=== PATIENT | female | born 1990 | race Caucasian/White ===

== ENCOUNTER 2017-08-16 15:46 | Inpatient (IN) | payer BC ==
[~2017-08-16] VITALS: Ht 166.4 cm; Wt 54.8 kg
[2017-08-16] VITALS (11 sets, daily range): BP systolic 86–100; BP diastolic 50–56; PULSE 110–129; RESP 16–44; TEMP 97.8–98.2; O2SAT 87–97
[~2017-08-16 15:46] MED LIST: SULF-154 PO; [UNRECOGNIZED DRUG - OTHER]
[2017-08-16] MEDS ORDERED: methylPREDNISolone SOD SUCC 125 MG/2 ML VIAL IV PUSH ONE (16:00)
[2017-08-16] MEDS ORDERED: SODIUM CHLORIDE 0.9% FLUSH 10 ML FLUSH IVF PRN (16:00)
[2017-08-16] MEDS: RESP: ALBUTEROL 2.5 MG/IPRATROPIUM 0.5 MG NEB (SCH) INH (16:08)
--- NOTE | 2017-08-16 16:10 | PD ---
HPI Chief Complaint: Respiratory Symptoms Time Seen by Provider: 15:55 Travel History International Travel<30 days: No Contact w/Intl Traveler<30days: No Traveled to known affect area: No History of Present Illness HPI Patient comes emerge department complaining of shortness of breath 2 days. Patient she was in the hospital 2 weeks ago diagnosed with pneumonia was placed on antibiotics azithromycin and prednisone last dose last week. Patient reports she was doing fine until 2 days ago she began feeling short of breath again. Patient was supposed to see her primary care doctor today, but decided come to the emergency department for further treatment evaluation. Patient reports temperature at home last night of 100.4. Denies taking anything for this. Patient denies anything making symptoms better or worse. Denies any chest pain, bowel pain, nausea, vomiting, or . Severity moderate. PFSH Past Medical History Asthma: No Autoimmune Disease: Yes (cd-4 immune deficiency) Blood Disorders: No Cardiovascular Problems: No Cystic Fibrosis: No Diminished Hearing: No Gastrointestinal Disorders: Yes Genitourinary: No Immune Disorder: Yes (CD4 IMMUNE DEFICIENCY) Musculoskeletal: No Neurologic: No Psychiatric: No Respiratory: Yes Immunizations Current: Yes Sickle Cell Disease: No ?: Not LMP: 07/27/17 Past Surgical History Surgical History: No Previous Surgery Appendectomy: No Cholecystectomy: No Other Surgery: Yes (LASER) Social History Alcohol Use: Yes (ONCE A WEEK) Tobacco Use: No Substance Use: No Allergies-Medications (Allergen,Severity, Reaction): Coded Allergies: penicillin G (Unverified Allergy, Unknown, 11/01/16) Reported Meds & Prescriptions Reported Meds & Active Scripts Active Reported [Logesttil (Bcp)] Septra Ds (Trimethoprim/Sulfamethoxazole) Tab 1 Tab PO 3TIMES A WEEK Review of Systems Except as stated in HPI: all other systems reviewed are Neg Physical Exam Narrative GENERAL: Well-developed, well nourished, in no acute distress, and non-ill appearing. SKIN: Focused skin assessment warm and dry. HEAD: Atraumatic. Normocephalic. EYES: Pupils equal and round. EOMI. No scleral icterus. No injection or drainage. ENT: No nasal bleeding or discharge. Mucous membranes pink and moist. NECK: Trachea midline. Supple. No nuclear rigidity. CARDIOVASCULAR: Regular rate and rhythm. No murmur appreciated. RESPIRATORY: No accessory muscle use. No respiratory distress. Breath sounds are tight and wheezing throughout. MUSCULOSKELETAL: No obvious deformities. No clubbing. No cyanosis. No edema. Full range of motion. NEUROLOGICAL: Awake and alert. No obvious cranial nerve deficits. Motor grossly within normal limits. Normal speech. PSYCHIATRIC: Appropriate mood and affect; insight and judgment normal. Data Data Last Documented VS Vital Signs Date Time Temp Pulse Resp B/P (MAP) Pulse Ox O2 Delivery O2 Flow Rate FiO2 08/16/17 19:23 120 20 91 Nasal Cannula 3.00 08/16/17 15:49 97.8 Orders Orders Complete Blood Count With Diff (08/16/17 16:00) Basic Metabolic Panel (Bmp) (08/16/17 16:00) Act Partial Throm Time (Ptt) (08/16/17 16:00) Prothrombin Time / Inr (Pt) (08/16/17 16:00) Magnesium (Mg) (08/16/17 16:00) Influenzae A/B Antigen (08/16/17 16:00) Iv Access Insert/Monitor (08/16/17 16:00) Electrocardiogram (08/16/17 16:00) Ecg Monitoring (08/16/17 16:00) Oximetry (08/16/17 16:00) Oxygen Administration (08/16/17 16:00) Chest, Single Ap (08/16/17 16:00) Sodium Chloride 0.9% Flush (Ns Flush) (08/16/17 16:00) Methylprednisolone So Succ Inj (Solumedr (08/16/17 16:00) Albuterol-Ipratropium Neb (Duoneb Neb) (08/16/17 16:00) Lactic Acid Sepsis Protocol (08/16/17 16:00) Urinalysis - C+S If Indicated (08/16/17 16:02) Blood Culture (08/16/17 16:02) Sodium Chlor 0.9% 1000 Ml Inj (Ns 1000 M (08/16/17 16:15) Sodium Chlor 0.9% 1000 Ml Inj (Ns 1000 M (08/16/17 16:45) Resp Mdi/Instruction (08/16/17 16:57) Albuterol-Ipratropium Neb (Duoneb Neb) (08/16/17 18:15) Albuterol-Ipratropium Neb (Duoneb Neb) (08/16/17 18:45) Admit Order (Ed Use Only) (08/16/17 19:40) Labs Laboratory Tests Test 08/16/17 16:05 08/16/17 17:16 White Blood Count 16.6 TH/MM3 Red Blood Count 4.85 MIL/MM3 Hemoglobin 14.1 GM/DL Hematocrit 40.4 % Mean Corpuscular Volume 83.2 FL Mean Corpuscular Hemoglobin 29.1 PG Mean Corpuscular Hemoglobin Concent 35.0 % Red Cell Distribution Width 15.0 % Platelet Count 349 TH/MM3 Mean Platelet Volume 7.9 FL Neutrophils (%) (Auto) 82.6 % Lymphocytes (%) (Auto) 5.5 % Monocytes (%) (Auto) 9.1 % Eosinophils (%) (Auto) 2.6 % Basophils (%) (Auto) 0.2 % Neutrophils # (Auto) 13.7 TH/MM3 Lymphocytes # (Auto) 0.9 TH/MM3 Monocytes # (Auto) 1.5 TH/MM3 Eosinophils # (Auto) 0.4 TH/MM3 Basophils # (Auto) 0.0 TH/MM3 CBC Comment DIFF FINAL Differential Comment Prothrombin Time 10.4 SEC Prothromb Time International Ratio 1.0 RATIO Activated Partial Thromboplast Time 29.9 SEC Blood Urea Nitrogen 10 MG/DL Creatinine 0.74 MG/DL Random Glucose 102 MG/DL Calcium Level 8.5 MG/DL Magnesium Level 2.2 MG/DL Sodium Level 136 MEQ/L Potassium Level 5.0 MEQ/L Chloride Level 103 MEQ/L Carbon Dioxide Level 24.3 MEQ/L Anion Gap 9 MEQ/L Estimat Glomerular Filtration Rate 96 ML/MIN Lactic Acid Level 1.3 mmol/L Urine Color YELLOW Urine Turbidity CLEAR Urine pH 7.0 Urine Specific [place] 1.018 Urine Protein TRACE mg/dL Urine Glucose (UA) NEG mg/dL Urine Ketones TRACE mg/dL Urine Occult Blood NEG Urine Nitrite NEG Urine Bilirubin NEG Urine Urobilinogen LESS THAN 2.0 MG/DL Urine Leukocyte Esterase TRACE Urine WBC 1 /hpf Urine Squamous Epithelial Cells 4 /hpf Urine Bacteria RARE /hpf Microscopic Urinalysis Comment CULT NOT INDICATED MDM Medical Decision Making Medical Screen Exam Complete: Yes Emergency Medical Condition: Yes Interpretation(s) EKG reviewed by Dr. Palmer shows sinus tachycardia with ventricular rate of 121. No STEMI. Differential Diagnosis Pneumonia, asthma exacerbation or reactive airway disease, URI, sepsis Narrative Course Patient was seen and examined. IV was established patient placed on continuous cardiac monitoring. Patient was given IV Solu-Medrol, IV fluid, and 3 duo nebs were ordered. 1700 upon reevaluation patient reports improvement of symptoms. Lungs reassessed improved breath sounds. Patient states she was only on steroids 1 day hospital after being admitted overnight. Patient reports was on a nebulizer but does not believe she was never officially diagnosed with asthma as a child and has not been on medication in a while. Secondary patient's O2 sats not going higher than 80% on room air. Patient was given additional 2 duo nebs however patient remained 88-90% on room air. Patient was placed back on O2. Discussed patient with Dr. Palmer, who recommends admission secondary to continued low O2 sats. Discussed all findings and plan of care with patient is agreeable for admission. All questions were answered. Patient remained stable throughout ED course. Discussed patient with hospitalist who is agreeable to admit the patient. Physician Communication Physician Communication [address] Xavier, who is agreeable to admit the patient. Diagnosis Primary Impression: Dyspnea Qualified Codes: R06.00 - Dyspnea, unspecified Admitting Information Admitting Physician Requests: Observation Condition: Stable Tam Bailon August 16, 2017 16:09
[2017-08-16] MEDS ORDERED: SODIUM CHLOR 0.9% 1000 ML INJ 1,000 ML IV ONE ×2 (16:15→16:45)
[2017-08-16 16:27] LABS: AUTOMATED NEUTROPHIL # 13.7 TH/MM3 (1.8-7.7); BASOPHIL % 0.2 % (0.0-2.0); EOSINOPHIL # 0.4 TH/MM3 (0-0.4); EOSINOPHIL % 2.6 % (0.0-4.0); HEMATOCRIT 40.4 % (35.0-46.0); HEMOGLOBIN 14.1 GM/DL (11.6-15.3); LYMPH % 5.5 % (9.0-44.0); LYMPHOCYTE # 0.9 TH/MM3 (1.0-4.8); MEAN CELL VOLUME 83.2 FL (80.0-100.0); MEAN CORPUSCULAR HEMOGLOBIN 29.1 PG (27.0-34.0); MEAN PLATELET VOLUME 7.9 FL (7.0-11.0); MONO % 9.1 % (0.0-8.0); MONOCYTE # 1.5 TH/MM3 (0-0.9); NEUT % 82.6 % (16.0-70.0); PLATELET COUNT 349 TH/MM3 (150-450); RED BLOOD COUNT 4.85 MIL/MM3 (4.00-5.30); WHITE BLOOD COUNT 16.6 TH/MM3 (4.0-11.0)
--- NOTE | 2017-08-16 16:28 | RADRPT ---
EXAM DATE: 08/16/2017 4:18 PM EDT AGE/SEX: 26 years / Female INDICATIONS: Short of breath CLINICAL DATA: This is the patient's initial encounter. Patient reports that signs and symptoms have been present for 3 days and indicates a pain score of 0/10. MEDICAL/SURGICAL HISTORY: . pneumonia 2 weeks ago. None. COMPARISON: No prior [facility] exams available for comparison. FINDINGS: Minimal interstitial changes in both lungs with minimal bibasilar changes. Cardiac silhouett e is appropriate. There is obvious consolidation, pleural effusion or pneumothorax. CONCLUSION: Minimal interstitial changes both lungs that could be an early inflammatory process. Electronically signed by: Glen Rodríguez MD 08/16/2017 4:27 PM EDT
[2017-08-16 16:50] LABS: PROTHROMBIN TIME - PATIENT 10.4 SEC (9.8-11.6)
[2017-08-16 16:55] LABS: BICARBONATE 24.3 MEQ/L (21.0-32.0); CALCIUM 8.5 MG/DL (8.5-10.1); CREATININE 0.74 MG/DL (0.50-1.00); MAGNESIUM 2.2 MG/DL (1.5-2.5)
[2017-08-16 17:42] LABS: BACTERIA, URINE RARE /hpf; BILIRUBIN, URINE NEG (NEG); BLOOD, URINE NEG (NEG); GLUCOSE,URINE NEG (NEG); KETONE, URINE TRACE mg/dL (NEG); NITRITE,URINE NEG (NEG); SQUAMOUS EPITHELIAL CELL URINE 4 /hpf (0-5); URINE COLOR YELLOW (YELLW/STRAW); URINE LEUKOCYTE ESTERASE TRACE (NEG)
[2017-08-16] MEDS ORDERED: RESP: ALBUTEROL 2.5 MG/IPRATROPIUM 0.5 MG NEB (SCH) INH ONE ×2 (18:15→18:45)
[2017-08-16] MEDS ORDERED: LAMI300T PO (20:24)
--- NOTE | 2017-08-16 21:55 | HHI.HP ---
[facility] Fátima Burton Admission Diagnosis Dyspnea Diagnoses: Travel History International Travel<30 Days: No Contact w/Intl Traveler <30 Da: No Traveled to Known Affected Are: No History of Present Illness 26-year-old female with a past medical history significant for common variable immune deficiency presents to the emergency department for the evaluation of shortness of breath. The patient was seen at [facility] 2 weeks ago where she was hospitalized for 2 nights and discharged with prednisone and azithromycin after being diagnosed with community-acquired pneumonia. The patient reports compliance with these medications and states she was feeling better until 3 days ago. At that time she began developing shortness of breath again. She states that her shortness of breath continued to worsen until today she felt as though she could not even walk 10 steps without having to stop to catch her breath. She denies any fever/chills. No cough. No history of asthma. No chest pain. No nausea/vomiting/diarrhea. No abdominal pain. Review of Systems Except as stated in HPI: all other systems reviewed are Neg Past Family Social History Past Medical History Common variable immune deficiency Nocturnal seizures Past Surgical History None Reported Medications Reported Meds & Active Scripts Active Reported Lamictal XR (Lamotrigine) 300 Mg Anne-Marie 300 Mg PO HS [Logesttil (Bcp)] Allergies: Coded Allergies: penicillin G (Unverified Allergy, Unknown, 11/01/16) Family History Negative for CAD/DM Social History Occasional alcohol. Denies tobacco and illicit drugs. Physical Exam Vital Signs Vital Signs Date Time Temp Pulse Resp B/P (MAP) Pulse Ox O2 Delivery O2 Flow Rate FiO2 08/16/17 20:25 112 18 92/51 (65) 96 Nasal Cannula 3.00 08/16/17 19:23 120 20 91 Nasal Cannula 3.00 08/16/17 19:01 125 22 100/51 (67) 88 Room Air 08/16/17 18:16 119 20 86/50 (62) 88 Room Air 08/16/17 18:10 88 Room Air 08/16/17 16:05 94 Nasal Cannula 4.00 08/16/17 16:03 95 Nasal Cannula 4.00 08/16/17 16:03 94 Nasal Cannula 4.00 08/16/17 16:01 89 Nasal Cannula 2.00 08/16/17 15:58 133 22 84 Room Air 08/16/17 15:49 97.8 129 44 91/51 (64) 87 Physical Exam GENERAL: female sitting up in bed SKIN: No rashes, ecchymoses or lesions. Cool and dry. HEAD: Atraumatic. Normocephalic. No temporal or scalp tenderness. EYES: Pupils equal round and reactive. Extraocular motions intact. No scleral icterus. No injection or drainage. ENT: Nose without bleeding, purulent drainage or septal hematoma. Throat without erythema, tonsillar hypertrophy or exudate. Uvula midline. Airway patent. NECK: Trachea midline. No JVD or lymphadenopathy. Supple, nontender, no meningeal signs. CARDIOVASCULAR: Regular rate and rhythm without murmurs, gallops, or rubs. RESPIRATORY: Bilateral wheezes. Decreased air movement. GASTROINTESTINAL: Abdomen soft, non-tender, nondistended. No hepato-splenomegaly , or palpable masses. No guarding. MUSCULOSKELETAL: Extremities without clubbing, cyanosis, or edema. No joint tenderness, effusion, or edema noted. No calf tenderness. NEUROLOGICAL: Awake and alert. Cranial nerves II through XII intact. Motor and sensory grossly within normal limits. Normal speech. Laboratory Laboratory Tests Test 08/16/17 16:05 08/16/17 17:16 White Blood Count 16.6 Red Blood Count 4.85 Hemoglobin 14.1 Hematocrit 40.4 Mean Corpuscular Volume 83.2 Mean Corpuscular Hemoglobin 29.1 Mean Corpuscular Hemoglobin Concent 35.0 Red Cell Distribution Width 15.0 Platelet Count 349 Mean Platelet Volume 7.9 Neutrophils (%) (Auto) 82.6 Lymphocytes (%) (Auto) 5.5 Monocytes (%) (Auto) 9.1 Eosinophils (%) (Auto) 2.6 Basophils (%) (Auto) 0.2 Neutrophils # (Auto) 13.7 Lymphocytes # (Auto) 0.9 Monocytes # (Auto) 1.5 Eosinophils # (Auto) 0.4 Basophils # (Auto) 0.0 CBC Comment DIFF FINAL Differential Comment Prothrombin Time 10.4 Prothromb Time International Ratio 1.0 Activated Partial Thromboplast Time 29.9 Blood Urea Nitrogen 10 Creatinine 0.74 Random Glucose 102 Calcium Level 8.5 Magnesium Level 2.2 Sodium Level 136 Potassium Level 5.0 Chloride Level 103 Carbon Dioxide Level 24.3 Anion Gap 9 Estimat Glomerular Filtration Rate 96 Lactic Acid Level 1.3 Urine Color YELLOW Urine Turbidity CLEAR Urine pH 7.0 Urine Specific [place] 1.018 Urine Protein TRACE Urine Glucose (UA) NEG Urine Ketones TRACE Urine Occult Blood NEG Urine Nitrite NEG Urine Bilirubin NEG Urine Urobilinogen LESS THAN 2.0 Urine Leukocyte Esterase TRACE Urine WBC 1 Urine Squamous Epithelial Cells 4 Urine Bacteria RARE Microscopic Urinalysis Comment CULT NOT INDICATED Date/Time Source Procedure Growth Status 08/16/17 16:05 Blood Peripheral Aerobic Blood Culture Pending Received 08/16/17 16:05 Blood Peripheral Anaerobic Blood Culture Pending Received 08/16/17 16:45 Nasal Aspirate Influenza Types A,B Antigen (WILLIAM) - Final NEGATIVE FOR FLU A AND B ANTIGEN.... Complete Result Diagram: 08/16/17 1605 08/16/17 1605 Caprini VTE Risk Assessment Caprini VTE Risk Assessment: No/Low Risk (score <= 1) Caprini Risk Assessment Model Point Value = 1 Point Value = 2 Point Value = 3 Point Value = 5 Age 41-60 Minor surgery BMI > 25 kg/m2 Swollen legs Varicose veins or History of unexplained or recurrent spontaneous Oral contraceptives or hormone replacement Sepsis (< 1 month) Serious lung disease, including pneumonia (< 1 month) Abnormal pulmonary function Acute myocardial infarction Congestive heart failure (< 1 month) History of inflammatory bowel disease Medical patient at bed rest Age 61-74 Arthroscopic surgery Major open surgery (> 45 min) Laparoscopic surgery (> 45 min) Malignancy Confined to bed (> 72 hours) Immobilizing plaster cast Central venous access Age >= 75 History of VTE Family history of VTE Factor V Leiden Prothrombin [id number] Lupus anticoagulant Anticardiolipin antibodies Elevated serum homocysteine Heparin-induced thrombocytopenia Other congenital or acquired thrombophilia Stroke (< 1 month) Elective arthroplasty Hip, pelvis, or leg fracture Acute spinal cord injury (< 1 month) Prophylaxis Regimen Total Risk Factor Score Risk Level Prophylaxis Regimen 0-1 Low Early ambulation 2 Moderate Order ONE of the following: *Sequential Compression Device (SCD) *Heparin 5000 units SQ BID 3-4 Higher Order ONE of the following medications: *Heparin 5000 units SQ TID *Enoxaparin/Lovenox 40 mg SQ daily (WT < 150 kg, CrCl > 30 mL/min) *Enoxaparin/Lovenox 30 mg SQ daily (WT < 150 kg, CrCl > 10-29 mL/min) *Enoxaparin/Lovenox 30 mg SQ BID (WT < 150 kg, CrCl > 30 mL/min) AND/OR *Sequential Compression Device (SCD) 5 or more Highest Order ONE of the following medications: *Heparin 5000 units SQ TID (Preferred with Epidurals) *Enoxaparin/Lovenox 40 mg SQ daily (WT < 150 kg, CrCl > 30 mL/min) *Enoxaparin/Lovenox 30 mg SQ daily (WT < 150 kg, CrCl > 10-29 mL/min) *Enoxaparin/Lovenox 30 mg SQ BID (WT < 150 kg, CrCl > 30 mL/min) AND *Sequential Compression Device (SCD) Assessment and Plan Assessment and Plan Assessment/plan: 1. Hypoxia Chest x-ray significant for minimal interstitial changes, personally reviewed Patient hypoxic on room air on arrival to the emergency department Continues to require oxygen despite breathing treatments and IV steroids Continue duo nebs Continue IV steroids Wean oxygen as tolerated If symptoms do not improve overnight, pulmonary consult may be warranted 2. CVID Patient followed at [facility] 3. Nocturnal seizures Continue home Lamictal FEN Regular diet Electrolytes: Monitor and replete as needed Physician Certification 2 Midnight Certification Type: Admission for Inpatient Services Order for Inpatient Services The services are ordered in accordance with Medicare regulations or non- Medicare payer requirements, as applicable. In the case of services not specified as inpatient-only, they are appropriately provided as inpatient services in accordance with the 2-midnight benchmark. Estimated LOS (days): 2 2 days is the estimated time the patient will need to remain in the hospital, assuming treatment plan goals are met and no additional complications. Post-Hospital Plan: Not yet determined Karla Xavier MD August 16, 2017 21:55
[2017-08-16] MEDS ORDERED: RESP: ALBUTEROL 2.5 MG/IPRATROPIUM 0.5 MG NEB (PRN) NEB (22:00)
[2017-08-16] MEDS ORDERED: LAMOTRIGINE 300 MG PO SCH (22:00)
[2017-08-16] MEDS ORDERED: SODIUM CHLORIDE 0.9% FLUSH 10 ML FLUSH IV FLUSH PRN (22:00)
[2017-08-16] MEDS ORDERED: PILL SPLITTER OTHER PRN (23:45)
[2017-08-17] VITALS (9 sets, daily range): BP systolic 86–97; BP diastolic 55–62; PULSE 92–106; RESP 16–22; TEMP 97.7–98.2; O2SAT 93–96
[2017-08-17] MEDS: lamoTRIgine 100 MG TAB PO SCH ×3 (00:14→21:18)
[2017-08-17] MEDS: RESP: ALBUTEROL 2.5 MG/IPRATROPIUM 0.5 MG NEB (SCH) NEB ×6 (00:18→19:52)
[2017-08-17] MEDS: methylPREDNISolone SOD SUCC 125 MG/2 ML VIAL IV PUSH SCH ×2 (04:52→11:43)
[2017-08-17 06:22] LABS: AUTOMATED NEUTROPHIL # 8.5 TH/MM3 (1.8-7.7); BASOPHIL % 0.1 % (0.0-2.0); HEMATOCRIT 36.9 % (35.0-46.0); HEMOGLOBIN 12.3 GM/DL (11.6-15.3); LYMPH % 6.4 % (9.0-44.0); LYMPHOCYTE # 0.6 TH/MM3 (1.0-4.8); MEAN CELL VOLUME 84.6 FL (80.0-100.0); MEAN CORPUSCULAR HEMOGLOBIN 28.2 PG (27.0-34.0); MEAN CORPUSCULAR HGB CONC 33.3 % (32.0-36.0); MEAN PLATELET VOLUME 7.8 FL (7.0-11.0); MONO % 7.6 % (0.0-8.0); MONOCYTE # 0.7 TH/MM3 (0-0.9); NEUT % 85.9 % (16.0-70.0); PLATELET COUNT 349 TH/MM3 (150-450); RED BLOOD COUNT 4.36 MIL/MM3 (4.00-5.30); RED CELL DISTRIBUTION WIDTH 15.2 % (11.6-17.2); WHITE BLOOD COUNT 9.9 TH/MM3 (4.0-11.0)
[2017-08-17 06:39] LABS: BICARBONATE 22.3 MEQ/L (21.0-32.0); CALCIUM 8.5 MG/DL (8.5-10.1); CREATININE 0.55 MG/DL (0.50-1.00)
[2017-08-17] MEDS: SODIUM CHLORIDE 0.9% FLUSH 10 ML FLUSH IV FLUSH SCH ×2 (08:30→21:18)
--- NOTE | 2017-08-17 12:32 | HHI.PR ---
Subjective Remarks Feels a little better, still short of breath and coughing. No fever overnight Objective Vitals Vital Signs Date Time Temp Pulse Resp B/P (MAP) Pulse Ox O2 Delivery O2 Flow Rate FiO2 08/17/17 08:58 94 Nasal Cannula 3.00 08/17/17 08:07 97.7 93 16 95/58 (70) 95 08/17/17 04:00 98.2 100 22 97/56 (70) 95 08/17/17 00:00 97.9 106 20 94/62 (73) 96 08/16/17 23:04 98.2 119 16 98/54 (69) 92 08/16/17 22:22 08/16/17 22:17 97 Nasal Cannula 2.00 08/16/17 22:00 110 18 98/56 (70) 95 Nasal Cannula 3.00 08/16/17 20:25 112 18 92/51 (65) 96 Nasal Cannula 3.00 08/16/17 19:23 120 20 91 Nasal Cannula 3.00 08/16/17 19:01 125 22 100/51 (67) 88 Room Air 08/16/17 18:16 119 20 86/50 (62) 88 Room Air 08/16/17 18:10 88 Room Air 08/16/17 16:05 94 Nasal Cannula 4.00 08/16/17 16:03 95 Nasal Cannula 4.00 08/16/17 16:03 94 Nasal Cannula 4.00 08/16/17 16:01 89 Nasal Cannula 2.00 08/16/17 15:58 133 22 84 Room Air 08/16/17 15:49 97.8 129 44 91/51 (64) 87 I/O 08/16/17 08/16/17 08/16/17 08/17/17 08/17/17 08/17/17 07:00 15:00 23:00 07:00 15:00 23:00 Intake Total 2000 ml Balance 2000 ml Intake IV Total 2000 ml Result Diagram: 08/17/17 0520 08/17/17 0520 Imaging Last Impressions Chest X-Ray 08/16/17 1600 Signed Impressions: CONCLUSION: Minimal interstitial changes both lungs that could be an early inflammatory pro cess. Objective Remarks GENERAL: female sitting up in bed SCARDIOVASCULAR: Regular rate and rhythm without murmurs, gallops, or rubs. RESPIRATORY: Bilateral rhonchi, occasional wheezing. GASTROINTESTINAL: Abdomen soft, non-tender, nondistended. No hepato-splenomegaly , or palpable masses. No guarding. MUSCULOSKELETAL: Extremities without clubbing, cyanosis, or edema. NEUROLOGICAL: Awake and alert. Cranial nerves II through XII intact. Motor and sensory grossly within normal limits. Normal speech. A/P Assessment and Plan 26-year-old female with a past medical history significant for common variable immune deficiency presents to the emergency department for the evaluation of shortness of breath. The patient was seen at [facility] 2 weeks ago where she was hospitalized for 2 nights and discharged with prednisone and azithromycin after being diagnosed with community-acquired pneumonia. Patient presented to the hospital with shortness of breath even with compliance with medications. Hypoxic respiratory failure secondary to pneumonia -chest x-ray shows minimal interstitial changes, hypoxic, continue oxygen, continue IV steroids, duo nebs around the clock and as needed, improving, hold of pulmonary consult. Restart antibiotics with Levaquin and azithromycin. CVID Patient followed at [facility] Nocturnal seizures Continue home Lamictal FEN Regular diet Electrolytes: Monitor and replete as needed DVT prophylaxis: Low risk Discharge Planning Discharge once off oxygen. Possibly tomorrow. Bertha Sands MD August 17, 2017 12:32
[2017-08-17] MEDS ORDERED: LEVOFLOXACIN 750 MG PREMIX INJ 150 ML IV SCH (14:00)
[2017-08-17] MEDS: AZITHROMYCIN 250 MG TAB PO SCH (14:43)
--- NOTE | 2017-08-17 14:47 | EKG ---
Date Performed: 08/16/2017 Time Performed: 16:14:34 PTAGE: 26 years EKG: SINUS TACHYCARDIA ABNORMAL RHYTHM ECG NO PREVIOUS TRACING DOCTOR: Arnol King Interpretating Date/Time 08/17/2017 14:44:56
[2017-08-17] MEDS: methylPREDNISolone SOD SUCC 40 MG/1 ML VIAL IV PUSH SCH (21:18)
[2017-08-18 00:12] VITALS: BP 91/56; PULSE 94; RESP 20; TEMP 98.3; O2SAT 97
[2017-08-18] MEDS: RESP: ALBUTEROL 2.5 MG/IPRATROPIUM 0.5 MG NEB (SCH) NEB ×4 (00:29→12:10)
[2017-08-18] MEDS: methylPREDNISolone SOD SUCC 40 MG/1 ML VIAL IV PUSH SCH (03:23)
[2017-08-18 04:00] VITALS: BP 90/55; PULSE 98; RESP 20; TEMP 97.7; O2SAT 96
[2017-08-18 08:17] VITALS: O2SAT 95
[2017-08-18 09:10] VITALS: BP 92/48; PULSE 93; RESP 20; TEMP 98.5; O2SAT 94
[2017-08-18] MEDS ORDERED: Albuterol-Ipratropium Neb NEB (10:40)
[2017-08-18] MEDS ORDERED: MEDR4PAK PO (10:40)
[2017-08-18] MEDS ORDERED: DIFL150T PO (10:40)
[2017-08-18] MEDS ORDERED: LEVO750T3 PO (10:40)
--- NOTE | 2017-08-18 10:49 | HHI.DS ---
Discharge Summary Admission Date August 16, 2017 at 21:48 Discharge Date: Aug 18, 2017 Admitting Diagnosis Dyspnea (1) Pneumonia, community acquired ICD Code: J18.9 - Pneumonia, unspecified organism (2) Immunodeficiency ICD Code: D84.9 - Immunodeficiency, unspecified (3) Dyspnea ICD Code: R06.00 - Dyspnea, unspecified Status: Acute Procedures none Brief History - From Admission 26-year-old female with a past medical history significant for common variable immune deficiency presents to the emergency department for the evaluation of shortness of breath. The patient was seen at [facility] 2 weeks ago where she was hospitalized for 2 nights and discharged with prednisone and azithromycin after being diagnosed with community-acquired pneumonia. The patient reports compliance with these medications and states she was feeling better until 3 days ago. At that time she began developing shortness of breath again. She states that her shortness of breath continued to worsen until today she felt as though she could not even walk 10 steps without having to stop to catch her breath. She denies any fever/chills. No cough. No history of asthma. No chest pain. No nausea/vomiting/diarrhea. No abdominal pain. CBC/BMP: 08/17/17 0520 08/17/17 0520 Significant Findings Laboratory Tests Test 08/16/17 16:05 08/16/17 17:16 08/17/17 05:20 White Blood Count 16.6 TH/MM3 (4.0-11.0) Neutrophils (%) (Auto) 82.6 % (16.0-70.0) 85.9 % (16.0-70.0) Lymphocytes (%) (Auto) 5.5 % (9.0-44.0) 6.4 % (9.0-44.0) Monocytes (%) (Auto) 9.1 % (0.0-8.0) Neutrophils # (Auto) 13.7 TH/MM3 (1.8-7.7) 8.5 TH/MM3 (1.8-7.7) Lymphocytes # (Auto) 0.9 TH/MM3 (1.0-4.8) 0.6 TH/MM3 (1.0-4.8) Monocytes # (Auto) 1.5 TH/MM3 (0-0.9) Urine Ketones TRACE mg/dL (NEG) Urine Leukocyte Esterase TRACE (NEG) Urine Bacteria RARE /hpf (NONE) Random Glucose 129 MG/DL (74-106) Chloride Level 108 MEQ/L (98-107) PE at Discharge GENERAL: female sitting up in bed SCARDIOVASCULAR: Regular rate and rhythm without murmurs, gallops, or rubs. RESPIRATORY: Bilateral rhonchi, occasional wheezing. GASTROINTESTINAL: Abdomen soft, non-tender, nondistended. No hepato-splenomegaly , or palpable masses. No guarding. MUSCULOSKELETAL: Extremities without clubbing, cyanosis, or edema. NEUROLOGICAL: Awake and alert. Cranial nerves II through XII intact. Motor and sensory grossly within normal limits. Normal speech. Hospital Course 26-year-old with a history of common variable immunodeficiency syndrome. She presented 3 days ago with shortness of breath following what appeared to be failure of azithromycin after being hospitalized for 2 days for treatment of pneumonia 2 weeks ago. Her chest x-ray appeared to be improved compared to the atypical pneumonia presentation. She was placed on a combination of IV Solu- Medrol and antibiotics were expanded to include Levaquin 750 mg IV. She has improved over the last 3 days and is currently off of oxygen. She reports she is ambulating comfortably and is interested in going home. She is afebrile for more than 24 hours, oxygen levels are 94% on room air, breathing is good without regular need for duo nebs. From a medical standpoint she appears stable for discharge today and will be following up with her primary care doctor in the early part of next week. Pt Condition on Discharge: Good Discharge Disposition: Discharge Home Discharge Time: <= 30 minutes Discharge Instructions DIET: Follow Instructions for: As Tolerated, No Restrictions Activities you can perform: Regular-No Restrictions Favian Jimenez MD Aug 18, 2017 10:48
[2017-08-18] MEDS: lamoTRIgine 100 MG TAB PO SCH (11:37)
[2017-08-18] MEDS: AZITHROMYCIN 250 MG TAB PO SCH (11:37)
[2017-08-18 11:50] VITALS: BP 94/46; PULSE 95; RESP 20; TEMP 97.9; O2SAT 94
[2017-08-18] MEDS ORDERED: NEBULIZER1 MI1 (15:32)
== END 2017-08-18 13:03 | disposition home or self-care (01) | DRG 193 ==
LOC: NEPE 15:46 → NEDA 19:41 → OBSVTOIN 21:48 → N04B 22:21
PROVIDERS: ADMIT Family Medicine; ATTEND Family Medicine
DX: J18.9 Pneumonia, unspecified organism (principal); J96.91 Respiratory failure, unspecified with hypoxia; D83.9 Common variable immunodeficiency, unspecified; R56.9 Unspecified convulsions
CPT/HCPCS: 71045; 80048; 81001; 83605; 83735; 85025; 85610; 85730; 87040; 87804; 93005; 94640; 94664; 94799; J1956; J2920; J2930; J7030

== ENCOUNTER 2017-08-29 17:52 | Inpatient (IN) | payer BC ==
[~2017-08-29] VITALS: Ht 165.1 cm; Wt 58.3 kg
[~2017-08-29 17:52] MED LIST changes: +Albuterol-Ipratropium Neb NEB; +DIFL150T PO; +LAMI300T PO; +LEVO750T3 PO; +MEDR4PAK PO; +NEBULIZER1 MI1; -SULF-154 PO
[2017-08-29 18:07] VITALS: BP 111/64; PULSE 120; RESP 20; TEMP 98.4; O2SAT 88
[2017-08-29] MEDS ORDERED: SODIUM CHLORIDE 0.9% FLUSH 10 ML FLUSH IVF PRN (18:45)
--- NOTE | 2017-08-29 19:10 | PD ---
HPI Chief Complaint: Respiratory Symptoms Time Seen by Provider: 18:34 Travel History International Travel<30 days: No Contact w/Intl Traveler<30days: No Traveled to known affect area: No History of Present Illness HPI Patient 26-year-old female with a history of immunodeficiency presents emergency department for evaluation of shortness of breath and tachycardia. Patient has been admitted to this hospital twice in an outside facility once in the past 30 days. All these admissions were for hypoxia in the mid to high 80s. Patient followed up with her new hardscape foreman for an establishment appointment today and was told that she needed to come back to the emergency department to rule out pulmonary embolism. She states that her shortness of breath has been progressive for the past month and a half, she did have the flight to [place] during the early onset of her shortness of breath, no fevers no cough no congestion no nausea no vomiting. Symptoms are moderate. PFSH Past Medical History Asthma: No Autoimmune Disease: Yes (cd-4 immune deficiency) Blood Disorders: No Cancer: No Cardiovascular Problems: No Cystic Fibrosis: No Diminished Hearing: No Endocrine: No Gastrointestinal Disorders: Yes Genitourinary: No Immune Disorder: Yes (CD4 IMMUNE DEFICIENCY) Musculoskeletal: No Neurologic: Yes Psychiatric: No Reproductive: No Respiratory: Yes (ASTHMA) Immunizations Current: Yes Seizures: Yes Sickle Cell Disease: No ?: Not LMP: August Past Surgical History Appendectomy: No Cholecystectomy: No Other Surgery: Yes (LASER) Social History Alcohol Use: Yes (ONCE A WEEK) Tobacco Use: No Substance Use: No Allergies-Medications (Allergen,Severity, Reaction): Coded Allergies: penicillin G (Unverified Allergy, Unknown, 11/01/16) Reported Meds & Prescriptions Reported Meds & Active Scripts Active Nebulizer 1 Mis Mis Ea .XX DIRECTED PRN Medrol Dosepak (Methylprednisolone) 4 Mg Dspk 4 Mg PO DIRECTED Per Pharmacist direction Levofloxacin 750 Mg Tablet 750 Mg PO DAILY 10 Days Diflucan (Fluconazole) 150 Mg Tab 150 Mg PO ONCE PRN [Albuterol-Ipratropium Neb] 1 AMPULE Nebu 1 Ampule NEB Q4HR NEB PRN 10 Days Reported Lamictal XR (Lamotrigine) 300 Mg Anne-Marie 300 Mg PO HS [Logesttil (Bcp)] Review of Systems Except as stated in HPI: all other systems reviewed are Neg Physical Exam Narrative GENERAL: Well-developed thin in no obvious distress SKIN: Scattered flat pinpoint markings on her upper and lower extremities and face. Patient states his been chronic for her. HEAD: Atraumatic. Normocephalic. EYES: Pupils equal and round. No scleral icterus. No injection or drainage. ENT: No nasal bleeding or discharge. Mucous membranes pink and moist. NECK: Trachea midline. No JVD. CARDIOVASCULAR: Regular rhythm with tachycardia. No murmur appreciated. RESPIRATORY: No accessory muscle use. Clear to auscultation. Breath sounds equal bilaterally. Patient with mild tachypnea but is able to speak in long sentences. Gasps inbetween the sentences. No retractions, appears fairly comfortable with a respiratory effort GASTROINTESTINAL: Abdomen soft, non-tender, nondistended. Hepatic and splenic margins not palpable. MUSCULOSKELETAL: No obvious deformities. No clubbing. No cyanosis. No edema. NEUROLOGICAL: Awake and alert. No obvious cranial nerve deficits. Motor grossly within normal limits. Normal speech. PSYCHIATRIC: Appropriate mood and affect; insight and judgment normal. Data Data Last Documented VS Vital Signs Date Time Temp Pulse Resp B/P (MAP) Pulse Ox O2 Delivery O2 Flow Rate FiO2 08/29/17 20:28 96 Nasal Cannula 3.00 08/29/17 18:07 98.4 120 20 111/64 (80) Orders Orders Electrocardiogram (08/29/17 18:34) Complete Blood Count With Diff (08/29/17 18:34) Comprehensive Metabolic Panel (08/29/17 18:34) Magnesium (Mg) (08/29/17 18:34) Prothrombin Time / Inr (Pt) (08/29/17 18:34) Act Partial Throm Time (Ptt) (08/29/17 18:34) Chest, Single Ap (08/29/17 18:34) Ecg Monitoring (08/29/17 18:34) Iv Access Insert/Monitor (08/29/17 18:34) Oximetry (08/29/17 18:34) Oxygen Administration (08/29/17 18:34) Sodium Chloride 0.9% Flush (Ns Flush) (08/29/17 18:45) Ed Urine Pregnancytest Poc (08/29/17 18:34) Ct Pulmonary Angiogram (08/29/17 ) Iohexol 350 Inj (Omnipaque 350 Inj) (08/29/17 22:07) Vancomycin Inj (Vancomycin Inj) (08/29/17 23:15) Aztreonam Inj (Azactam Inj) (08/29/17 23:15) Blood Culture (08/29/17 23:09) Admit Order (Ed Use Only) (08/29/17 ) Labs Laboratory Tests Test 08/29/17 19:00 White Blood Count 8.5 TH/MM3 Red Blood Count 5.26 MIL/MM3 Hemoglobin 14.5 GM/DL Hematocrit 43.8 % Mean Corpuscular Volume 83.3 FL Mean Corpuscular Hemoglobin 27.5 PG Mean Corpuscular Hemoglobin Concent 33.1 % Red Cell Distribution Width 15.0 % Platelet Count 413 TH/MM3 Mean Platelet Volume 7.3 FL Neutrophils (%) (Auto) 71.5 % Lymphocytes (%) (Auto) 10.7 % Monocytes (%) (Auto) 11.8 % Eosinophils (%) (Auto) 5.6 % Basophils (%) (Auto) 0.4 % Neutrophils # (Auto) 6.1 TH/MM3 Lymphocytes # (Auto) 0.9 TH/MM3 Monocytes # (Auto) 1.0 TH/MM3 Eosinophils # (Auto) 0.5 TH/MM3 Basophils # (Auto) 0.0 TH/MM3 CBC Comment DIFF FINAL Differential Comment Prothrombin Time 10.7 SEC Prothromb Time International Ratio 1.1 RATIO Activated Partial Thromboplast Time 28.0 SEC Blood Urea Nitrogen 5 MG/DL Creatinine 0.82 MG/DL Random Glucose 74 MG/DL Total Protein 7.3 GM/DL Albumin 3.7 GM/DL Calcium Level 9.1 MG/DL Magnesium Level 2.4 MG/DL Alkaline Phosphatase 86 U/L Aspartate Amino Transf (AST/SGOT) 24 U/L Alanine Aminotransferase (ALT/SGPT) 15 U/L Total Bilirubin 0.3 MG/DL Sodium Level 139 MEQ/L Potassium Level 4.0 MEQ/L Chloride Level 104 MEQ/L Carbon Dioxide Level 25.6 MEQ/L Anion Gap 9 MEQ/L Estimat Glomerular Filtration Rate 85 ML/MIN MDM Medical Decision Making Medical Screen Exam Complete: Yes Emergency Medical Condition: Yes Differential Diagnosis Pneumonia, PE, sepsis, chronic lung disease, asthma. Narrative Course Patient room to the emergency department, has history of common variable immune deficiency, certainly she is tachycardic and has low saturation, CAT scan does not show evidence of pulmonary embolism however does show inflammatory response in the lungs which could be consistent with pneumocystis according to the radiologist: Last 24 hours Impressions Chest X-Ray 08/29/17 1834 Signed Impressions: CONCLUSION: Stable chest. CT Angiography 08/29/17 0000 Signed Impressions: CONCLUSION: 1. Abnormal lung parenchyma suspicious for an early inflammatory process. Pneu mocystis could give this appearance in the appropriate clinical context. Atypic al presentation for asthma. Certainly the patient does have hypoxic respiratory failure and will require admission to the hospital. Diagnosis Primary Impression: Pneumonia, community acquired Qualified Codes: J18.9 - Pneumonia, unspecified organism Additional Impressions: Immunodeficiency Acute respiratory failure with hypoxia Admitting Information Admitting Physician Requests: Admit Condition: Stable Jeffrey Gonzalez MD Aug 29, 2017 19:10
[2017-08-29 19:22] LABS: AUTOMATED NEUTROPHIL # 6.1 TH/MM3 (1.8-7.7); BASOPHIL % 0.4 % (0.0-2.0); EOSINOPHIL # 0.5 TH/MM3 (0-0.4); EOSINOPHIL % 5.6 % (0.0-4.0); HEMATOCRIT 43.8 % (35.0-46.0); HEMOGLOBIN 14.5 GM/DL (11.6-15.3); LYMPH % 10.7 % (9.0-44.0); LYMPHOCYTE # 0.9 TH/MM3 (1.0-4.8); MEAN CELL VOLUME 83.3 FL (80.0-100.0); MEAN CORPUSCULAR HEMOGLOBIN 27.5 PG (27.0-34.0); MEAN CORPUSCULAR HGB CONC 33.1 % (32.0-36.0); MEAN PLATELET VOLUME 7.3 FL (7.0-11.0); MONO % 11.8 % (0.0-8.0); NEUT % 71.5 % (16.0-70.0); PLATELET COUNT 413 TH/MM3 (150-450); RED BLOOD COUNT 5.26 MIL/MM3 (4.00-5.30); WHITE BLOOD COUNT 8.5 TH/MM3 (4.0-11.0)
[2017-08-29 19:28] LABS: INTERNATIONAL NORMALIZED RATIO 1.1 RATIO; PROTHROMBIN TIME - PATIENT 10.7 SEC (9.8-11.6)
--- NOTE | 2017-08-29 19:31 | RADRPT ---
EXAM DATE: 08/29/2017 7:29 PM EDT AGE/SEX: 26 years / Female INDICATIONS: Shortness of breath. CLINICAL DATA: This is the patient's initial encounter. Patient reports that signs and symptoms have been present for 1 day and indicates a pain score of 0/10. MEDICAL/SURGICAL HISTORY: . Pneumonia None. [place] [facility] [place] . FINDINGS: Minimal blunting left cost phrenic sulcus stable interval. Right lung clear. The heart and pulmonary vascularity are normal. The portion of the bony skeleton visualized is unremarkable. CONCLUSION: Stable chest. Electronically signed by: Glen Rodríguez MD 08/29/2017 7:30 PM EDT
[2017-08-29 19:36] LABS: ALBUMIN 3.7 GM/DL (3.4-5.0); ALT (GPT) 15 U/L (10-53); AST (GOT) 24 U/L (15-37); BICARBONATE 25.6 MEQ/L (21.0-32.0); BLOOD UREA NITROGEN 5 MG/DL (7-18); CALCIUM 9.1 MG/DL (8.5-10.1); CHLORIDE 104 MEQ/L (98-107); CREATININE 0.82 MG/DL (0.50-1.00); GLOMERULAR FILTRATION RATE 85 ML/MIN (>89); GLUCOSE,RANDOM 74 MG/DL (74-106); MAGNESIUM 2.4 MG/DL (1.5-2.5); SODIUM (NA) 139 MEQ/L (136-145)
[2017-08-29 19:39] LABS: ALKALINE PHOSPHATASE 86 U/L (45-117); TOTAL BILIRUBIN ADULT 0.3 MG/DL (0.2-1.0); TOTAL PROTEIN 7.3 GM/DL (6.4-8.2)
[2017-08-29] MEDS ORDERED: IOHEXOL 350 MG/ML 10 ML VIAL (for RAD DIAG) IVCONTRAST ONE (22:07)
--- NOTE | 2017-08-29 22:17 | RADRPT ---
EXAM DATE: 08/29/2017 10:08 PM EDT AGE/SEX: 26 years / Female INDICATIONS: Shortness of breath. CLINICAL DATA: This is the patient's initial encounter. Patient reports that signs and symptoms have been present for 2 weeks and indicates a pain score of 0/10. MEDICAL/SURGICAL HISTORY: Asthma. Seizures. None. RADIATION DOSE: 5.29 CTDI (mGy) COMPARISON: No prior exams available for comparison. TECHNIQUE: Volumetric scanning was performed using a multi-row detector CT scanner during bolus infu kimmy of 70 ml Omnipaque 350 (iohexol) nonionic water-soluble contrast as a single exam dose. The leonides a was post processed with a variety of visualization algorithms including full volume maximum intensi ty projection and sliding thin slab reformation. Using automated exposure control and adjustment of the mA and/or kV according to patient size, radiation dose was kept as low as reasonably achievable t o obtain optimal diagnostic quality images. FINDINGS: Pulmonary Arteries: No filling defects are seen in the pulmonary arteries out to the subsegmental ve ssels. The left and right pulmonary arteries are normal in diameter. Lung: Mild interstitial prominence with groundglass opacity in both lungs that could be an early inf lammatory process. This is associated with moderate peribronchial thickening. Effusion: None. Mediastinum: No evidence of mediastinal or hilar adenopathy. Other: The axilla is unremarkable. CONCLUSION: 1. Abnormal lung parenchyma suspicious for an early inflammatory process. Pneumocystis could give th is appearance in the appropriate clinical context. Atypical presentation for asthma. Electronically signed by: Glen Rodríguez MD 08/29/2017 10:15 PM EDT
[2017-08-29] MEDS ORDERED: AZTREONAM INJ 1,000 MG in SODIUM CHLORIDE 0.9% INJ 100 ML IV ONE (23:15)
[2017-08-29] MEDS ORDERED: VANCOMYCIN INJ 1,000 MG in SODIUM CHLOR 0.9% 250 ML INJ 250 ML IV ONE (23:15)
[2017-08-29 23:40] VITALS: BP 96/52; PULSE 90; RESP 15; O2SAT 95
[2017-08-30] MEDS ORDERED: MAGNESIUM HYDROXIDE SUSP 30 ML CUP PO PRN (01:00)
[2017-08-30] MEDS ORDERED: BISACODYL 10 MG SUPP RECTAL PRN (01:00)
[2017-08-30] MEDS ORDERED: RESP: ALBUTEROL 2.5 MG/IPRATROPIUM 0.5 MG NEB (PRN) NEB (01:00)
[2017-08-30] MEDS ORDERED: SENNOSIDES 8.6 MG TAB PO PRN (01:00)
[2017-08-30] MEDS ORDERED: Vancomycin Consult Pharmacy 1 EA OTHER SCH (01:00)
[2017-08-30] MEDS ORDERED: ONDANSETRON ODT 4 MG TAB PO PRN (01:00)
[2017-08-30] MEDS ORDERED: SODIUM CHLORIDE 0.9% FLUSH 10 ML FLUSH IV FLUSH PRN (01:00)
[2017-08-30] MEDS ORDERED: ACETAMINOPHEN 325 MG TAB PO PRN (01:00)
[2017-08-30] MEDS ORDERED: NALOXONE HCL 0.4 MG/ML AMP IV PUSH PRN (01:00)
[2017-08-30] MEDS ORDERED: LACTULOSE SYRUP 20 GM/30 ML CUP PO PRN (01:00)
[2017-08-30] MEDS ORDERED: diphenhydrAMINE HCL 50 MG/ML VIAL IV PUSH ONE (01:30)
--- NOTE | 2017-08-30 03:24 | HHI.HP ---
[facility] Morgan Pinon MD Admission Diagnosis pneumonia, hypoxic respiratory failure Diagnoses: Travel History International Travel<30 Days: No Contact w/Intl Traveler <30 Da: No Traveled to Known Affected Are: No History of Present Illness 26-year-old female with past medical history significant for common variable immune deficiency presents the emergency department for evaluation of persistent shortness of breath. The [place] [facility] [place]. She followed up as an outpatient with her dairy feed mixing operator, Dr. Cuevas, who referred her to the emergency department for evaluation of possible PE. Patient has already completed a course of azithromycin and Levaquin. She continues to complain of shortness of breath that is worse with exertion. She denies any recent wheezing or cough. No fever /chills. No chest pain. No abdominal pain. No nausea/vomiting/diarrhea. Review of Systems Except as stated in HPI: all other systems reviewed are Neg Past Family Social History Past Medical History Common variable immune deficiency Nocturnal seizures Past Surgical History None Reported Medications Reported Meds & Active Scripts Active Nebulizer 1 Mis Mis Ea .XX DIRECTED PRN Medrol Dosepak (Methylprednisolone) 4 Mg Dspk 4 Mg PO DIRECTED Per Pharmacist direction Levofloxacin 750 Mg Tablet 750 Mg PO DAILY 10 Days Diflucan (Fluconazole) 150 Mg Tab 150 Mg PO ONCE PRN [Albuterol-Ipratropium Neb] 1 AMPULE Nebu 1 Ampule NEB Q4HR NEB PRN 10 Days Reported Lamictal XR (Lamotrigine) 300 Mg Anne-Marie 300 Mg PO HS [Logesttil (Bcp)] Allergies: Coded Allergies: penicillin G (Unverified Allergy, Unknown, 11/01/16) Family History Negative for CAD/DM Social History Occasional alcohol. Denies tobacco and illicit drugs. Physical Exam Vital Signs Vital Signs Date Time Temp Pulse Resp B/P (MAP) Pulse Ox O2 Delivery O2 Flow Rate FiO2 08/30/17 01:54 08/29/17 23:40 90 15 96/52 (67) 95 Nasal Cannula 3.00 08/29/17 20:28 96 Nasal Cannula 3.00 08/29/17 20:28 Nasal Cannula 3.00 18 18:07 98.4 120 20 111/64 (80) 88 Physical Exam GENERAL: female sitting up in bed SKIN: No rashes, ecchymoses or lesions. Cool and dry. HEAD: Atraumatic. Normocephalic. No temporal or scalp tenderness. EYES: Pupils equal round and reactive. Extraocular motions intact. No scleral icterus. No injection or drainage. ENT: Nose without bleeding, purulent drainage or septal hematoma. Throat without erythema, tonsillar hypertrophy or exudate. Uvula midline. Airway patent. NECK: Trachea midline. No JVD or lymphadenopathy. Supple, nontender, no meningeal signs. CARDIOVASCULAR: Regular rate and rhythm without murmurs, gallops, or rubs. RESPIRATORY: Clear to auscultation. Breath sounds equal bilaterally. No wheezes , rales, or rhonchi. GASTROINTESTINAL: Abdomen soft, non-tender, nondistended. No hepato-splenomegaly , or palpable masses. No guarding. MUSCULOSKELETAL: Extremities without clubbing, cyanosis, or edema. No joint tenderness, effusion, or edema noted. No calf tenderness. NEUROLOGICAL: Awake and alert. Cranial nerves II through XII intact. Motor and sensory grossly within normal limits. Normal speech. Laboratory Laboratory Tests Test 08/29/17 19:00 White Blood Count 8.5 Red Blood Count 5.26 Hemoglobin 14.5 Hematocrit 43.8 Mean Corpuscular Volume 83.3 Mean Corpuscular Hemoglobin 27.5 Mean Corpuscular Hemoglobin Concent 33.1 Red Cell Distribution Width 15.0 Platelet Count 413 Mean Platelet Volume 7.3 Neutrophils (%) (Auto) 71.5 Lymphocytes (%) (Auto) 10.7 Monocytes (%) (Auto) 11.8 Eosinophils (%) (Auto) 5.6 Basophils (%) (Auto) 0.4 Neutrophils # (Auto) 6.1 Lymphocytes # (Auto) 0.9 Monocytes # (Auto) 1.0 Eosinophils # (Auto) 0.5 Basophils # (Auto) 0.0 CBC Comment DIFF FINAL Differential Comment Prothrombin Time 10.7 Prothromb Time International Ratio 1.1 Activated Partial Thromboplast Time 28.0 Blood Urea Nitrogen 5 Creatinine 0.82 Random Glucose 74 Total Protein 7.3 Albumin 3.7 Calcium Level 9.1 Magnesium Level 2.4 Alkaline Phosphatase 86 Aspartate Amino Transf (AST/SGOT) 24 Alanine Aminotransferase (ALT/SGPT) 15 Total Bilirubin 0.3 Sodium Level 139 Potassium Level 4.0 Chloride Level 104 Carbon Dioxide Level 25.6 Anion Gap 9 Estimat Glomerular Filtration Rate 85 Date/Time Source Procedure Growth Status 08/29/17 23:40 Blood Peripheral Aerobic Blood Culture Pending Received 08/29/17 23:40 Blood Peripheral Anaerobic Blood Culture Pending Received Result Diagram: 08/29/17189908/29/171899 Caprini VTE Risk Assessment Caprini VTE Risk Assessment: No/Low Risk (score <= 1) Caprini Risk Assessment Model Point Value = 1 Point Value = 2 Point Value = 3 Point Value = 5 Age 41-60 Minor surgery BMI > 25 kg/m2 Swollen legs Varicose veins or History of unexplained or recurrent spontaneous Oral contraceptives or hormone replacement Sepsis (< 1 month) Serious lung disease, including pneumonia (< 1 month) Abnormal pulmonary function Acute myocardial infarction Congestive heart failure (< 1 month) History of inflammatory bowel disease Medical patient at bed rest Age 61-74 Arthroscopic surgery Major open surgery (> 45 min) Laparoscopic surgery (> 45 min) Malignancy Confined to bed (> 72 hours) Immobilizing plaster cast Central venous access Age >= 75 History of VTE Family history of VTE Factor V Leiden Prothrombin [id number] Lupus anticoagulant Anticardiolipin antibodies Elevated serum homocysteine Heparin-induced thrombocytopenia Other congenital or acquired thrombophilia Stroke (< 1 month) Elective arthroplasty Hip, pelvis, or leg fracture Acute spinal cord injury (< 1 month) Prophylaxis Regimen Total Risk Factor Score Risk Level Prophylaxis Regimen 0-1 Low Early ambulation 2 Moderate Order ONE of the following: *Sequential Compression Device (SCD) *Heparin 5000 units SQ BID 3-4 Higher Order ONE of the following medications: *Heparin 5000 units SQ TID *Enoxaparin/Lovenox 40 mg SQ daily (WT < 150 kg, CrCl > 30 mL/min) *Enoxaparin/Lovenox 30 mg SQ daily (WT < 150 kg, CrCl > 10-29 mL/min) *Enoxaparin/Lovenox 30 mg SQ BID (WT < 150 kg, CrCl > 30 mL/min) AND/OR *Sequential Compression Device (SCD) 5 or more Highest Order ONE of the following medications: *Heparin 5000 units SQ TID (Preferred with Epidurals) *Enoxaparin/Lovenox 40 mg SQ daily (WT < 150 kg, CrCl > 30 mL/min) *Enoxaparin/Lovenox 30 mg SQ daily (WT < 150 kg, CrCl > 10-29 mL/min) *Enoxaparin/Lovenox 30 mg SQ BID (WT < 150 kg, CrCl > 30 mL/min) AND *Sequential Compression Device (SCD) Assessment and Plan Assessment and Plan Assessment/plan: 1. Shortness of breath CTA significant for abnormal lung parenchyma suspicious for an early inflammatory process. Pneumocystis cannot be excluded. Vancomycin/Zosyn for possible hospital-acquired pneumonia Infectious disease consulted for evaluation of possible pneumocystis Patient's dairy feed mixing operator, Dr. Cuevas consulted, appreciate recommendations Supplemental oxygen as needed DuoNeb's 2. CVID Patient followed at [facility] 3. Nocturnal seizures Continue home Lamictal FEN Regular diet Electrolytes: Monitor and replete as needed Physician Certification 2 Midnight Certification Type: Admission for Inpatient Services Order for Inpatient Services The services are ordered in accordance with Medicare regulations or non- Medicare payer requirements, as applicable. In the case of services not specified as inpatient-only, they are appropriately provided as inpatient services in accordance with the 2-midnight benchmark. Estimated LOS (days): 2 2 days is the estimated time the patient will need to remain in the hospital, assuming treatment plan goals are met and no additional complications. Post-Hospital Plan: Not yet determined Karla Xavier MD Aug 30, 2017 03:24
[2017-08-30 03:56] VITALS: BP 91/53; PULSE 94; RESP 17; TEMP 98.7; O2SAT 95
[2017-08-30] MEDS: AZTREONAM INJ 1,000 MG in SODIUM CHLORIDE 0.9% INJ 100 ML IV SCH ×2 (06:36→15:51)
[2017-08-30 08:16] VITALS: BP 82/45; PULSE 88; RESP 16; TEMP 98.6; O2SAT 94
--- NOTE | 2017-08-30 09:11 | EKG ---
Date Performed: 08/29/2017 Time Performed: 18:51:27 PTAGE: 26 years EKG: SINUS TACHYCARDIA POSSIBLE LEFT ATRIAL ENLARGEMENT ABNORMAL RHYTHM ECG INTERPRETATION BASED ON A DEFAULT AGE OF 40 YEARS NO PREVIOUS TRACING DOCTOR: Kirit Greene Interpretating Date/Time 08/30/2017 09:10:17
[2017-08-30] MEDS: DOCUSATE SODIUM 50 MG/SENNA 8.6 MG TAB PO SCH ×2 (10:09→20:31)
[2017-08-30] MEDS: SODIUM CHLORIDE 0.9% FLUSH 10 ML FLUSH IV FLUSH SCH ×2 (10:09→20:31)
[2017-08-30] MEDS: AZITHROMYCIN INJ 500 MG in SODIUM CHLOR 0.9% 250 ML INJ 250 ML IV SCH (10:09)
[2017-08-30] MEDS ORDERED: VANCOMYCIN INJ 1,000 MG in SODIUM CHLOR 0.9% 250 ML INJ 250 ML IV SCH (11:15)
[2017-08-30 14:06] VITALS: BP 133/62; PULSE 73; RESP 18; TEMP 98.7; O2SAT 96
[2017-08-30 14:39] VITALS: BP 89/54; PULSE 88; RESP 18; TEMP 98.7; O2SAT 95
[2017-08-30] MEDS: VANCOMYCIN INJ 750 MG in SODIUM CHLOR 0.9% 250 ML INJ 250 ML IV SCH (15:52)
[2017-08-30 17:21] VITALS: BP 84/52; PULSE 89; RESP 18; TEMP 98.7; O2SAT 96
--- NOTE | 2017-08-30 19:25 | PD.ID.CON ---
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 She coni not improved and [facility]She is afebrile, but reports never jhaving fever Her CTA showed atypical infiultrates SHe is hypoxic, requires O2 Bloodm clx negative @ 1 day Review of Systems Respiratory: COMPLAINS OF: Cough, Shortness of breath Cardiovascular: COMPLAINS OF: Dyspnea on Exertion Integumentary: COMPLAINS OF: Rash (chronic) Except as stated in HPI: all other systems reviewed are Neg Past Family Social History Allergies: Coded Allergies: penicillin G (Unverified Allergy, Unknown, 11/01/16) Past Medical History Common variable immune deficiency Nocturnal seizures chronic dermititis Past Surgical History none Active Ordered Medications Medications where reviewed in EMR Antibiotics Include: vanco azactam Family History non contributory reviewed Social History No Tobacco. No ETOH. No Illicit Drugs. Physical Exam Vital Signs Vital Signs Date Time Temp Pulse Resp B/P (MAP) Pulse Ox O2 Delivery O2 Flow Rate FiO2 08/30/17 17:21 98.7 89 18 84/52 (63) 96 08/30/17 14:39 98.7 88 18 89/54 (66) 95 08/30/17 14:06 98.7 73 18 133/62 (85) 96 08/30/17 08:16 98.6 88 16 82/45 (57) 94 08/30/17 03:56 98.7 94 17 91/53 (66) 95 08/30/17 01:54 08/29/17 23:40 90 15 96/52 (67) 95 Nasal Cannula 3.00 08/29/17 20:28 96 Nasal Cannula 3.00 08/29/17 20:28 Nasal Cannula 3.00 Physical Exam CONSTITUTIONAL/GENERAL: This is an adequately nourished patient, in no apparent distress. TUBES/LINES/DRAINS: SKIN: No jaundice, rashes, Some erytmatous flat lesions on face, UE Skin temperature appropriate. Not diaphoretic. HEAD: Atraumatic. Normocephalic. EYES: Pupils equal and round and reactive. Extraocular motions intact. No scleral icterus. No injection or drainage. Fundi not examined. ENT: Hearing grossly normal. Nose without bleeding or purulent drainage. Throat without visible erythema, exudates, masses, or lesions. NECK: Trachea midline. Supple, nontender. No palpable thyroid enlargement or nodularity. CARDIOVASCULAR: Regular rate and rhythm without murmurs, gallops, or rubs. No JVD. Peripheral pulses symmetric. RESPIRATORY/CHEST: Symmetric, unlabored respirations. R side rhonchi to auscultation. Breath sounds equal bilaterally. No wheezes, rales, or rhonchi. GASTROINTESTINAL: Abdomen soft, non-tender, nondistended. No hepato-splenomegaly , or palpable masses. No guarding. Bowel sounds present. GENITOURINARY: Without palpable bladder distension. MUSCULOSKELETAL: Extremities without clubbing, cyanosis, or edema. No joint tenderness or effusion noted. No calf tenderness. No mottling or clubbing. LYMPHATICS: No palpable cervical or supraclavicular adenopathy. NEUROLOGICAL: Awake and alert. Motor and sensory grossly within normal limits. Follows commands. Cognitively sharp. Moves all extremities. PSYCHIATRIC: No obvious anxiety/depression. no apparent hallucinations or other psychotic thought process. Laboratory Date/Time Source Procedure Growth Status 08/29/17 23:40 Blood Peripheral Aerobic Blood Culture - Preliminary NO GROWTH IN 1 DAY Resulted 08/29/17 23:40 Blood Peripheral Anaerobic Blood Culture - Preliminary NO GROWTH IN 1 DAY Resulted Result Diagram: 08/29/17 1900 08/29/17 1900 Imaging Last Impressions Chest X-Ray 08/29/17 1834 Signed Impressions: CONCLUSION: Stable chest. CT Angiography 08/29/17 0000 Signed Impressions: CONCLUSION: 1. Abnormal lung parenchyma suspicious for an early inflammatory process. Pneu mocystis could give this appearance in the appropriate clinical context. Atypic al presentation for asthma. Assessment and Plan Assessment and Plan Immunosuppresed, Common varibel immunoodeficiency PNA, subacute - failed abx Hypoxia Rec's: cont vancomycin start CFTX dc azzcatm add azitjhromycin Pneumocoocal/Leg AGn Flu antigen sputum clx PCP sputum Armen brnchospopy if no prompt improvement and unable to expectorate Dana King MD Aug 30, 2017 19:25
[2017-08-30 19:44] VITALS: BP 95/55; PULSE 95; RESP 17; TEMP 98.3; O2SAT 93
[2017-08-30] MEDS ORDERED: DEXT 5%-NACL 0.45% 1000 ML INJ 1,000 ML IV SCH (20:22)
[2017-08-30] MEDS ORDERED: ALBUTEROL SULFATE 90 MCG/ACT HFA 8 GM INHALER INH PRN (20:30)
[2017-08-30] MEDS: cefTRIAXone INJ 2,000 MG in SODIUM CHLORIDE 0.9% INJ 100 ML IV SCH (20:31)
--- NOTE | 2017-08-30 20:48 | MB ---
cc: Sue Cuevas MD, V J MD DATE: 08/30/2017 REASON FOR CONSULTATION: Pulmonary infiltrates and hypoxia. HISTORY OF PRESENT ILLNESS: This is a 26-year-old lady who has had a previous history of common variable immune deficiency disorder who was admitted through the emergency room with persistent shortness of breath, cough, wheezing and hypoxia. The patient was quite short of breath. She was admitted to the hospital 2 weeks ago with similar symptoms and was treated for possible pneumonia; however, she did not improve in spite of being on Levaquin and Zithromax and now has chest tightness and some coughing spells. She denied hemoptysis, nausea or vomiting. Upon arrival in the ER, a CTA showed no evidence of PE, but had diffuse ground glass infiltrates consistent with an inflammatory process or atypical pneumonia. The patient has not lost any weight. She denies nausea or vomiting and she denies any chest pains. PAST MEDICAL HISTORY: 1. Common variable immune deficiency. 2. History of nocturnal seizures. SOCIAL HISTORY: The patient does not smoke. She drinks alcohol occasionally. She is a student. There is no history of occupational exposure to any asbestos chemicals. The patient does not take any illicit drugs. ALLERGIES: PENICILLIN MEDICATIONS: Lamictal 300 mg at bedtime. FAMILY HISTORY: Noncontributory. There is no history of her asthma or chronic lung disease. SYSTEMS REVIEW: The patient has lost some weight. She has skin rash consistent with eczema. She has wheezing. She has postnasal drip. She has shortness of breath and orthopnea. She has no enlarged glands. She denies leg swelling. Denies nausea or vomiting. Denies urinary symptoms or flank pains. She has some anxiety attacks. PHYSICAL EXAMINATION: GENERAL: This is a thinly built young white female who is pale and seems mildly tachypneic. VITAL SIGNS: Blood pressure 110/60, pulse 105, respirations 24, temperature 98.5. HEENT: Head is normocephalic. Pupils are reactive. Sclerae were clear. Throat was mildly injected. Nasal mucosa edematous. There is some reddish raised rash on the forehead and some rash over the neck as well as both arms and trunk. There is no lymphadenopathy observed. CHEST: Reveals equal movements. There are scattered expiratory wheezes bilaterally. HEART: The heart sounds are regular, S1 and S2. No murmur. ABDOMEN: Soft, scaphoid. No mass. No organomegaly or tenderness. EXTREMITIES: No lesions, no edema. NEUROLOGIC: Reflexes are 1+ with no gross motor deficits. Cranial nerves grossly intact. IMPRESSION: 1. Bilateral pulmonary infiltrates, etiology undetermined, possible atypical pneumonia, rule out Pneumocystis. 2. Common variable immune deficiency disorder. 3. History of seizures. PLAN: The patient has been advised that a bronchoscopy will be scheduled to evaluate the infiltrates and a diagnostic lavage will be done and biopsy if possible. The patient will be maintained on current antibiotics including Rocephin 1 gram, vancomycin 750 mg and Zithromax 500 mg intravenous daily. Albuterol and Atrovent solution q.i.d. p.r.n. and a bedside pulmonary function study was ordered as well as coagulation profile today. I have discussed with her the risks of bronchoscopy including bleeding, pneumothorax, respiratory failure, etc., and she is in agreement. Thank you for this consultation. Sue Cuevas MD VSHAUNNA/ , 08:23 PM , 08:46 PM
[2017-08-30] MEDS ORDERED: LAMOTRIGINE 300 MG PO SCH (21:00)
[2017-08-30 23:50] LABS: BACTERIA, URINE RARE /hpf; BILIRUBIN, URINE NEG (NEG); BLOOD, URINE NEG (NEG); GLUCOSE,URINE NEG (NEG); KETONE, URINE NEG (NEG); MUCUS URINE FEW /lpf (OCC); NITRITE,URINE NEG (NEG); SQUAMOUS EPITHELIAL CELL URINE 6 /hpf (0-5); URINE COLOR YELLOW (YELLW/STRAW); URINE LEUKOCYTE ESTERASE NEG (NEG)
[2017-08-31 00:14] VITALS: BP 83/53; PULSE 104; RESP 16; TEMP 98.6; O2SAT 95
[2017-08-31] MEDS: VANCOMYCIN INJ 750 MG in SODIUM CHLOR 0.9% 250 ML INJ 250 ML IV SCH ×2 (04:37→17:08)
[2017-08-31 04:39] VITALS: BP 85/53; PULSE 86; RESP 15; TEMP 98.2; O2SAT 95
[2017-08-31 07:30] VITALS: BP 90/53; PULSE 92; RESP 16; TEMP 98.2; O2SAT 94
[2017-08-31 07:46] LABS: AUTOMATED NEUTROPHIL # 3.9 TH/MM3 (1.8-7.7); BASOPHIL % 0.6 % (0.0-2.0); EOSINOPHIL # 0.6 TH/MM3 (0-0.4); EOSINOPHIL % 9.7 % (0.0-4.0); HEMATOCRIT 39.2 % (35.0-46.0); HEMOGLOBIN 12.9 GM/DL (11.6-15.3); LYMPH % 14.5 % (9.0-44.0); LYMPHOCYTE # 0.9 TH/MM3 (1.0-4.8); MEAN CELL VOLUME 84.2 FL (80.0-100.0); MEAN CORPUSCULAR HEMOGLOBIN 27.7 PG (27.0-34.0); MEAN CORPUSCULAR HGB CONC 32.8 % (32.0-36.0); MEAN PLATELET VOLUME 7.5 FL (7.0-11.0); MONO % 14.5 % (0.0-8.0); MONOCYTE # 0.9 TH/MM3 (0-0.9); NEUT % 60.7 % (16.0-70.0); PLATELET COUNT 390 TH/MM3 (150-450); RED BLOOD COUNT 4.65 MIL/MM3 (4.00-5.30); RED CELL DISTRIBUTION WIDTH 14.7 % (11.6-17.2); WHITE BLOOD COUNT 6.4 TH/MM3 (4.0-11.0)
--- NOTE | 2017-08-31 07:52 | MB ---
cc: Janel Glaser MD DATE: 08/30/2017 CHIEF COMPLAINT: 1. Common variable immunodeficiency. 2. Pneumonia. HISTORY OF PRESENT ILLNESS: Ms. Bateman is a 26-year-old lady with a history of common variable immunodeficiency who presented to the emergency department with a several day history of progressively worsening shortness of breath. She was previously hospitalized at [facility] on 08/16/2017 for similar symptoms. She follows closely in the outpatient setting with her manager banquet, Dr. Cuevas. She has previously been diagnosed with pneumonia and has completed a course of azithromycin and Levaquin. She also has a history of common variable immunodeficiency. She currently follows with a pediatric physician at the [facility]. She is in the process of transitioning to an adult physician at [facility]. She reports that she is treated with twice monthly infusions of IVIG. She reports that her last infusion was approximately 1 month ago during her last hospitalization. She reports that she is in her baseline state of health aside from known pneumonia. While inpatient, infectious disease and pulmonary teams have been consulted. REVIEW OF SYSTEMS: As above in the HPI. All other review of systems negative. PAST MEDICAL HISTORY: 1. Common variable immunodeficiency. 2. Nocturnal seizures. PAST SURGICAL HISTORY: None. OUTPATIENT MEDICATIONS: 1. Seizure medication. 2. IVIG infusions. FAMILY HISTORY: No family history of common variable immunodeficiency. SOCIAL HISTORY: Denies tobacco, alcohol, and illegal drug use. 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 PHYSICAL EXAMINATION: GENERAL: Well-developed, well-nourished, young lady in no distress. HEAD: Normocephalic, atraumatic. SKIN: With no rashes. EYES: PERRLA. EOMI. NECK: Supple. No palpable lymphadenopathy. CARDIOVASCULAR: Regular rate and rhythm. No murmurs. RESPIRATORY: Clear to auscultation bilaterally. ABDOMEN: Soft, nontender, nondistended. Bowel sounds present. EXTREMITIES: With no edema. NEUROLOGIC: Grossly nonfocal. PSYCHIATRIC: Appropriate mood and affect. LABORATORY STUDIES: White blood cell count 8.5, hemoglobin 14.5, platelet count of 113,000. Differential with slightly low absolute lymphocyte count and elevated absolute monocyte count and absolute eosinophil count. These have been normal in the past. Chemistries with normal liver function tests. Creatinine is 0.82. Coag studies are within normal limits. Urines are negative. CT angiography with abnormal lung parenchyma suspicious for an early inflammatory process. ASSESSMENT AND PLAN: 1. Common variable immunodeficiency. We will check immunoglobulin levels. We will plan to give the next infusion of IVIG while inpatient. 2. Pneumonia infectious disease and pulmonary team are following. Infectious disease team is considering bronchoscopy. Janel Glaser MD FAM/DL , 07:28 AM , 07:51 AM MTDFátima
[2017-08-31 08:25] LABS: BICARBONATE 23.1 MEQ/L (21.0-32.0); CREATININE 0.6 MG/DL (0.50-1.00)
--- NOTE | 2017-08-31 09:27 | HHI.PR ---
Subjective Remarks Patient says she is feeling about the same. No improvement or worsening in shortness of breath. Denies any chest pain. Denies any nausea or vomiting. Objective Vital Signs Date Time Temp Pulse Resp B/P (MAP) Pulse Ox O2 Delivery O2 Flow Rate FiO2 08/31/17 07:30 98.2 92 16 90/53 (65) 94 08/31/17 04:39 98.2 86 15 85/53 (64) 95 08/31/17 00:14 98.6 104 16 83/53 (63) 95 08/30/17 19:44 98.3 95 17 95/55 (68) 93 08/30/17 19:28 Nasal Cannula 2.00 08/30/17 17:21 98.7 89 18 84/52 (63) 96 08/30/17 14:39 98.7 88 18 89/54 (66) 95 08/30/17 14:06 98.7 73 18 133/62 (85) 96 I/O 08/30/17 08/30/17 08/30/17 08/31/17 08/31/17 08/31/17 07:00 15:00 23:00 07:00 15:00 23:00 Intake Total 350 ml 950 ml 950 ml 720 ml Balance 350 ml 950 ml 950 ml 720 ml Intake Oral 250 ml 500 ml 720 ml IV Total 350 ml 700 ml 450 ml # Voids 2 Result Diagram: 08/31/17 0600 08/31/17 0600 Objective Remarks GENERAL: Patient sitting up in bed. Appears comfortable. SKIN: Warm and dry. HEAD: Normocephalic. EYES: No scleral icterus. No injection or drainage. NECK: Supple, trachea midline. No JVD or lymphadenopathy. CARDIOVASCULAR: Regular rate and rhythm without murmurs, gallops, or rubs. RESPIRATORY: Breath sounds equal bilaterally. No accessory muscle use. GASTROINTESTINAL: Abdomen soft, non-tender, nondistended. MUSCULOSKELETAL: No cyanosis, or edema. BACK: Nontender without obvious deformity. No CVA tenderness. A/P Assessment and Plan //Shortness of breath //Sepsis in immunocompromised patient on admission. Tachycardia, tachypnea. May not see leukocytosis or fever secondary to CVID. //Atypical pneumonia CTA significant for abnormal lung parenchyma suspicious for an early inflammatory process. Pneumocystis cannot be excluded. Vancomycin/Zosyn for possible hospital-acquired pneumonia Infectious disease consulted for evaluation of possible pneumocystis Patient's product safety professional, Dr. Cuevas consulted, appreciate recommendations Supplemental oxygen as needed DuoNeb's = Continue antibiotics as per ID. Appreciate assistance. //CVID Patient followed at [facility] = Appreciate hematology assistance. IVIG to be administered as per hematology. //Nocturnal seizures Continue home Lamictal FEN Regular diet Electrolytes: Monitor and replete as needed Discharge Planning We will need hematology and ID clearance. Satnam De La Fuente MD Aug 31, 2017 09:27
[2017-08-31] MEDS: SODIUM CHLORIDE 0.9% FLUSH 10 ML FLUSH IV FLUSH SCH ×2 (09:30→21:50)
[2017-08-31] MEDS: DOCUSATE SODIUM 50 MG/SENNA 8.6 MG TAB PO SCH ×2 (09:30→21:00)
[2017-08-31] MEDS ORDERED: PNEUMOCOCCAL POLYVALENT INJ 25 MCG/0.5 ML SYR IM ONE (10:00)
[2017-08-31] MEDS: AZITHROMYCIN INJ 500 MG in SODIUM CHLOR 0.9% 250 ML INJ 250 ML IV SCH (10:12)
[2017-08-31 10:30] VITALS: BP 84/52; PULSE 89; RESP 20; TEMP 98.4; O2SAT 93
[2017-08-31] MEDS ORDERED: FAMOTIDINE 20 MG/2 ML VIAL ONE (10:58)
[2017-08-31] MEDS ORDERED: SUGAMMADEX SODIUM 200 MG/2 ML VIAL IV PUSH ONE (10:58)
[2017-08-31] MEDS ORDERED: MIDAZOLAM HCL 2 MG/2 ML VIAL ONE (10:58)
[2017-08-31] MEDS ORDERED: RESP: ALBUTEROL 2.5 MG/3 ML NEB (PRN) NEB (11:30)
[2017-08-31] MEDS ORDERED: DO NOT ADM ANY ANTICOAGULANT DRUGS PRN (11:45)
--- NOTE | 2017-08-31 11:58 | MP ---
cc: Sue Cuevas MD DATE OF OPERATION: 08/31/2017 PROCEDURE PERFORMED: Fiberoptic bronchoscopy with brushings and washings and lavage. PREOPERATIVE DIAGNOSIS: Bilateral pulmonary infiltrates. POSTOPERATIVE DIAGNOSIS: Bilateral pulmonary infiltrates. SURGEON: Sue Cuevas MD ANESTHESIA: General with intubation. PROCEDURE AND FINDINGS: The patient was intubated under general anesthesia, following which the Olympus IT180 bronchoscope was used to visualize the bronchi. The scope was advanced via the endotracheal tube into the trachea. The trachea and bobby appeared normal. Scope was then advanced into the right mainstem and right upper lobe segmental bronchi. These bronchi demonstrated mucoid secretions and moderate endobronchitis. The secretions were suctioned out. No endobronchial lesions were seen. Saline washings were done until clear. The scope was then advanced into the right middle and right lower lobe segmental bronchi. These bronchi demonstrated moderate endobronchitis with thick mucoid secretions and mucus plugs. These were suctioned out. Saline washings and lavage were done from the right lower lobe. There were no endobronchial lesions seen. Brushings were done for micro and cytology from the right lower lobe region. The scope was then withdrawn. Next, the scope was advanced into the left mainstem and left upper lobe segmental bronchi. These bronchi demonstrated thick mucoid secretions with moderate endobronchitis but no endobronchial lesions were seen. Saline washings were done until clear. Next, the scope was advanced into the left lower lobe segmental bronchi, which demonstrated mucoid secretions and moderate endobronchitis. The secretions were suctioned out. Saline washings and lavage were done and the procedure was then terminated. The patient tolerated the procedure well. Sue Cuevas MD VJD/KD , 11:37 AM , 11:56 AM
[2017-08-31] MEDS: methylPREDNISolone SOD SUCC 40 MG/1 ML VIAL IV SCH ×2 (12:11→21:51)
--- NOTE | 2017-08-31 12:55 | RADRPT ---
EXAM DATE: 08/31/2017 12:30 PM EDT AGE/SEX: 26 years / Female INDICATIONS: Short of breath, evaluate for pneumothorax post bronchoscopy CLINICAL DATA: This is the patient's subsequent encounter. Patient reports that signs and symptoms h ave been present for 2 days and indicates a pain score of 0/10. MEDICAL/SURGICAL HISTORY: . pneumonia seizures None. [place] [facility] [place]29[place]. . FINDINGS: The cardiac and mediastinal contours are within normal limits. There are bilateral effusions and bila teral infiltrates concerning for a pneumonia. The patient is post bronchoscopy. No pneumothorax is se en. CONCLUSION: No pneumothorax identified following bronchoscopy. Patchy areas of infiltrate and bilateral effusions. Electronically signed by: Isaac Rodríguez MD 08/31/2017 12:54 PM EDT
[2017-08-31 15:46] VITALS: BP 82/44; PULSE 93; RESP 16; TEMP 98.2; O2SAT 94
[2017-08-31 19:00] VITALS: BP 88/50; PULSE 92; RESP 16; TEMP 97.3; O2SAT 95
[2017-08-31] MEDS: cefTRIAXone INJ 2,000 MG in SODIUM CHLORIDE 0.9% INJ 100 ML IV SCH (21:51)
[2017-09-01] VITALS (12 sets, daily range): BP systolic 85–98; BP diastolic 42–57; PULSE 67–105; RESP 16–22; TEMP 97.6–98.7; O2SAT 92–98
[2017-09-01] MEDS: methylPREDNISolone SOD SUCC 40 MG/1 ML VIAL IV SCH ×3 (04:53→20:55)
[2017-09-01] MEDS: VANCOMYCIN INJ 750 MG in SODIUM CHLOR 0.9% 250 ML INJ 250 ML IV SCH (04:55)
--- NOTE | 2017-09-01 08:24 | HHI.PR ---
Subjective Remarks Follow-up sepsis and pneumonia. States she is feeling better less short of breath on nasal cannula. Objective Vitals Vital Signs Date Time Temp Pulse Resp B/P (MAP) Pulse Ox O2 Delivery O2 Flow Rate FiO2 09/01/17 04:00 97.7 68 16 92/53 (66) 96 09/01/17 00:00 97.7 105 16 91/54 (66) 92 08/31/17 19:00 97.3 92 16 88/50 (63) 95 08/31/17 15:46 98.2 93 16 82/44 (57) 94 08/31/17 13:15 98 16 98/50 (66) 94 Nasal Cannula 3 08/31/17 13:00 98.5 97 16 102/51 (68) 94 Nasal Cannula 3 08/31/17 12:45 97 16 97/56 (70) 93 Nasal Cannula 3 08/31/17 12:30 96 15 94/51 (65) 93 Nasal Cannula 3 08/31/17 12:15 100 15 104/58 (73) 92 Nasal Cannula 3 08/31/17 12:00 99 15 95/53 (67) 92 Nasal Cannula 3 08/31/17 11:45 97.3 101 14 92/50 (64) 100 Simple Mask 8 08/31/17 10:30 98.4 89 20 84/52 (63) 93 I/O 08/31/17 08/31/17 08/31/17 09/01/17 09/01/17 09/01/17 07:00 15:00 23:00 07:00 15:00 23:00 Intake Total 720 ml 120 ml 360 ml Balance 720 ml 120 ml 360 ml Intake Oral 720 ml 120 ml 360 ml # Voids 2 3 # Bowel Movements 0 Result Diagram: 08/31/17 0600 08/31/17 0600 Imaging Last Impressions Chest X-Ray 08/31/17 0000 Signed Impressions: CONCLUSION: No pneumothorax identified following bronchoscopy. Patchy areas of infiltrate and bilateral effusions. CT Angiography 08/29/17 0000 Signed Impressions: CONCLUSION: 1. Abnormal lung parenchyma suspicious for an early inflammatory process. Pneu mocystis could give this appearance in the appropriate clinical context. Atypic al presentation for asthma. Objective Remarks GENERAL: Patient sitting up in bed. Appears comfortable. SKIN: Warm and dry. CARDIOVASCULAR: Regular rate and rhythm without murmurs, gallops, or rubs. RESPIRATORY: Breath sounds equal bilaterally. No accessory muscle use. GASTROINTESTINAL: Abdomen soft, non-tender, nondistended. MUSCULOSKELETAL: No cyanosis, or edema. BACK: Nontender without obvious deformity. No CVA tenderness. Procedures Bronchoscopy A/P Problem List: (1) Pneumonia, community acquired ICD Code: J18.9 - Pneumonia, unspecified organism Assessment and Plan Shortness of breath Sepsis in immunocompromised patient on admission. Tachycardia, tachypnea. May not see leukocytosis or fever secondary to CVID. Atypical pneumonia CTA significant for abnormal lung parenchyma suspicious for an early inflammatory process. Pneumocystis cannot be excluded. Ct Vancomycin/Rocephin/Zithromax Infectious disease consulted for evaluation of possible pneumocystis Patient's day care provider, Dr. Cuevas consulted, appreciate recommendations status post bronchoscopy Supplemental oxygen as needed DuoNeb's Continue antibiotics as per ID. Appreciate assistance. Follow-up cultures negative to date except gram-positive cocci in 1 out of 4 blood culture bottles CVID(Common variable immune deficiency disorder) Patient followed at [facility] Appreciate hematology assistance. IVIG to be administered as per hematology. Patient to be transferred to see IC Nocturnal seizures Continue home Lamictal Seizure precautions FEN Regular diet Electrolytes: Monitor and replete as needed DVT prophylaxis with SCD Discharge Planning We will need hematology and ID clearance. Problem Qualifiers (1) Pneumonia, community acquired: Qualified Codes: J18.9 - Pneumonia, unspecified organism Ashu Reyes MD Sep 01, 2017 08:24
[2017-09-01] MEDS: DOCUSATE SODIUM 50 MG/SENNA 8.6 MG TAB PO SCH ×2 (09:00→20:55)
[2017-09-01] MEDS: AZITHROMYCIN INJ 500 MG in SODIUM CHLOR 0.9% 250 ML INJ 250 ML IV SCH (09:24)
[2017-09-01] MEDS: SODIUM CHLORIDE 0.9% FLUSH 10 ML FLUSH IV FLUSH SCH ×2 (09:25→20:55)
[2017-09-01] MEDS ORDERED: diphenhydrAMINE HCL 50 MG/ML VIAL IV PUSH PRN (11:00)
[2017-09-01] MEDS ORDERED: EPINEPHrine HCL (1:1000) 1 MG/ML VIAL OTHER PRN (11:00)
[2017-09-01] MEDS: DEXTROSE 5% IN WATE 500 ML INJ 500 ML OTHER SCH (11:00)
--- NOTE | 2017-09-01 12:41 | PD.ONC.PN ---
Subjective Subjective Remarks Patient sitting up in bed, talking to her nurse. In no acute distress. She states that her breathing has improved since admission to the hospital. She reports that she was out of bed this a.m. and walking around without dyspnea. Objective Data Date Time Temp Pulse Resp B/P (MAP) Pulse Ox O2 Delivery O2 Flow Rate FiO2 09/01/17 08:00 98.1 71 17 92/49 (63) 95 09/01/17 04:00 97.7 68 16 92/53 (66) 96 09/01/17 00:00 97.7 105 16 91/54 (66) 92 08/31/17 19:00 97.3 92 16 88/50 (63) 95 08/31/17 15:46 98.2 93 16 82/44 (57) 94 08/31/17 13:15 98 16 98/50 (66) 94 Nasal Cannula 3 08/31/17 13:00 98.5 97 16 102/51 (68) 94 Nasal Cannula 3 08/31/17 12:45 97 16 97/56 (70) 93 Nasal Cannula 3 08/31/17 12:30 96 15 94/51 (65) 93 Nasal Cannula 3 09/01/17 09/01/17 09/01/17 07:00 15:00 23:00 Intake Total 360 ml Balance 360 ml Result Diagram: 08/31/17 0600 08/31/17 0600 Culture Results Microbiology Date/Time Source Procedure Growth Status 08/29/17 23:40 Blood Peripheral Aerobic Blood Culture - Preliminary Staph Sp Coagulase Negative Resulted 08/29/17 23:40 Blood Peripheral Anaerobic Blood Culture - Preliminary NO GROWTH IN 3 DAYS Resulted 08/29/17 23:30 Blood Peripheral Aerobic Blood Culture - Preliminary NO GROWTH IN 3 DAYS Resulted 08/29/17 23:30 Blood Peripheral Anaerobic Blood Culture - Preliminary NO GROWTH IN 3 DAYS Resulted 08/31/17 11:20 Bronchial Washings Bronchial Fungal Smear - Final NO FUNGAL ELEMENTS SEEN. Resulted 08/31/17 11:20 Bronchial Washings Bronchial Fungal Culture Pending Resulted 08/31/17 11:20 Bronchial Brushings Right Lower Lobe Fungal Smear - Final NO FUNGAL ELEMENTS SEEN. Resulted 08/31/17 11:20 Bronchial Brushings Right Lower Lobe Fungal Culture Pending Resulted 08/31/17 11:20 Bronchial Washings Bronchial Acid Fast Stain Pending Received 08/31/17 11:20 Bronchial Washings Bronchial Mycobacterial Culture Pending Received 08/31/17 11:20 Bronchial Brushings Right Lower Lobe Acid Fast Stain Pending Received 08/31/17 11:20 Bronchial Brushings Right Lower Lobe Mycobacterial Culture Pending Received 08/31/17 11:20 Bronchial Brushings Right Lower Lobe Bronchial Aspirate Culture Pending Received 08/31/17 11:20 Bronchial Washings Bronchial Gram Stain - Final Resulted 08/31/17 11:20 Bronchial Washings Bronchial Bronchial Culture Pending Resulted 08/30/17 23:29 Urine Random Urine Legionella Antigen - Final PRESUMPTIVE NEGATIVE FOR LEGIONELLA P... Complete 08/30/17 23:29 Urine Random Urine Streptococcus pneumoniae Antigen (M - Final PRESUMPTIVE NEGATIVE FOR STREPTOCOCCU... Complete Imaging Studies Last 72 hours Impressions Chest X-Ray 08/31/17 0000 Signed Impressions: CONCLUSION: No pneumothorax identified following bronchoscopy. Patchy areas of infiltrate and bilateral effusions. Chest X-Ray 08/29/17 1834 Signed Impressions: CONCLUSION: Stable chest. Administered Medications Medications (Trade) Dose Ordered Sig/Sean Route PRN Reason Start Time Stop Time Status Last Admin Dose Admin Sodium Chloride (NS Flush) 2 ml BID IV FLUSH 08/30/17 09:00 09/01/17 09:25 Senna/Docusate Sodium (Chel-Colace) 1 tab BID PO 08/30/17 09:00 08/30/17 10:09 Azithromycin 500 mg/Sodium Chloride 250 ml @ 250 mls/hr Q24H IV 08/30/17 10:00 09/01/17 09:24 Vancomycin HCl 750 mg/Sodium Chloride 257.5 ml @ 250 mls/hr Q12H IV 08/30/17 16:00 09/01/17 04:55 Ceftriaxone Sodium 2000 mg/ Sodium Chloride 100 ml @ 200 mls/hr Q24H IV 08/30/17 20:00 08/31/17 21:51 Methylprednisolone Sodium Succinate (SoluMEDROL INJ) 40 mg Q8H IV 08/31/17 12:00 09/01/17 12:23 Objective Remarks GENERAL: Well-nourished, well-developed young lady. SKIN: Warm and dry. HEAD: Normocephalic. EYES: No scleral icterus. No injection or drainage. NECK: Supple, trachea midline. CARDIOVASCULAR: Regular rate and rhythm without murmurs. RESPIRATORY: Clear to auscultation bilaterally. Breath sounds equal bilaterally. No accessory muscle use. O2 via NC in place. GASTROINTESTINAL: Abdomen soft, non-tender, nondistended. EXTREMITIES: No cyanosis, or edema. MUSCULOSKELETAL: Adequate muscle tone. NEUROLOGICAL: No obvious focal deficit. Awake, alert, and oriented x3. PSYCHIATRIC: Appropriate mood and affect; insight and judgment normal. Assessment/Plan Assessment Ms. Bateman is a 26-year-old lady with a history of common variable immunodeficiency. This managed by [facility] with IVIG therapy twice monthly. She is currently hospitalized with pneumonia. Plan 1. Variable immunodeficiency- --Ig, IgA:61, IgM:14 --Will transfuse IVIG. --Continue to monitor per protocal. 2. Pneumonia --Management per pulmonology. Attending Statement The exam, history, and the medical decision-making described in the above note were completed with the assistance of the mid-level provider. I reviewed and agree with the findings presented. I attest that I had a [id number] encounter with the patient on the same day, and personally performed and documented my assessment and findings in the medical record. 26 yoF with CVID admitted with respiratory infection. She is s/p bronch. ID and pulmonary teams following. immunogloulin levels low. Will give IVIG at 600 mg/kg today. Ame Hopkins Sep 01, 2017 12:41 Janel Glaser MD Sep 01, 2017 19:26
[2017-09-01] MEDS ORDERED: IMMUNE GLOBULIN INJ 35 GM in SYRINGE/BAG 1 EA IV SCH (13:00)
[2017-09-01] MEDS: SODIUM CHLORID 0.9% 500 ML INJ 500 ML IV SCH (13:38)
[2017-09-01] MEDS: ACETAMINOPHEN 325 MG TAB PO SCH (15:07)
[2017-09-01] MEDS: diphenhydrAMINE HCL 25 MG CAP PO SCH (15:08)
--- NOTE | 2017-09-01 15:14 | HHI.IDPN ---
Subjective Subjective Remarks pt seen earlier today in rm# [id number] she states she feels better ambulating w/o dyspnea sp bronch yday growing Coag neg staph / bottles no cough, not espectorating afebrile Antibiotics azithro CFTX vanco Allergies: Coded Allergies: penicillin G (Unverified Allergy, Unknown, 11/01/16) Objective . Vital Signs Date Time Temp Pulse Resp B/P (MAP) Pulse Ox O2 Delivery O2 Flow Rate FiO2 09/01/17 12:53 98.2 105 22 94/51 (65) 92 09/01/17 08:00 98.1 71 17 92/49 (63) 95 09/01/17 04:00 97.7 68 16 92/53 (66) 96 09/01/17 00:00 97.7 105 16 91/54 (66) 92 08/31/17 19:00 97.3 92 16 88/50 (63) 95 08/31/17 15:46 98.2 93 16 82/44 (57) 94 . Laboratory Tests Test 08/31/17 06:00 White Blood Count 6.4 TH/MM3 Red Blood Count 4.65 MIL/MM3 Hemoglobin 12.9 GM/DL Hematocrit 39.2 % Mean Corpuscular Volume 84.2 FL Mean Corpuscular Hemoglobin 27.7 PG Mean Corpuscular Hemoglobin Concent 32.8 % Red Cell Distribution Width 14.7 % Platelet Count 390 TH/MM3 Mean Platelet Volume 7.5 FL Neutrophils (%) (Auto) 60.7 % Lymphocytes (%) (Auto) 14.5 % Monocytes (%) (Auto) 14.5 % Eosinophils (%) (Auto) 9.7 % Basophils (%) (Auto) 0.6 % Neutrophils # (Auto) 3.9 TH/MM3 Lymphocytes # (Auto) 0.9 TH/MM3 Monocytes # (Auto) 0.9 TH/MM3 Eosinophils # (Auto) 0.6 TH/MM3 Basophils # (Auto) 0.0 TH/MM3 CBC Comment DIFF FINAL Differential Comment Laboratory Tests Test 08/31/17 06:00 Blood Urea Nitrogen 5 MG/DL Creatinine 0.60 MG/DL Random Glucose 72 MG/DL Calcium Level 8.0 MG/DL Sodium Level 139 MEQ/L Potassium Level 4.2 MEQ/L Chloride Level 107 MEQ/L Carbon Dioxide Level 23.1 MEQ/L Anion Gap 9 MEQ/L Estimat Glomerular Filtration Rate 122 ML/MIN Microbiology Date/Time Source Procedure Growth Status 08/29/17 23:40 Blood Peripheral Aerobic Blood Culture - Preliminary Staph Sp Coagulase Negative Resulted 08/29/17 23:40 Blood Peripheral Anaerobic Blood Culture - Preliminary NO GROWTH IN 3 DAYS Resulted 08/29/17 23:30 Blood Peripheral Aerobic Blood Culture - Preliminary NO GROWTH IN 3 DAYS Resulted 08/29/17 23:30 Blood Peripheral Anaerobic Blood Culture - Preliminary NO GROWTH IN 3 DAYS Resulted 08/31/17 11:20 Bronchial Washings Bronchial Fungal Smear - Final NO FUNGAL ELEMENTS SEEN. Resulted 08/31/17 11:20 Bronchial Washings Bronchial Fungal Culture Pending Resulted 08/31/17 11:20 Bronchial Brushings Right Lower Lobe Fungal Smear - Final NO FUNGAL ELEMENTS SEEN. Resulted 08/31/17 11:20 Bronchial Brushings Right Lower Lobe Fungal Culture Pending Resulted 08/31/17 11:20 Bronchial Washings Bronchial Acid Fast Stain Pending Received 08/31/17 11:20 Bronchial Washings Bronchial Mycobacterial Culture Pending Received 08/31/17 11:20 Bronchial Brushings Right Lower Lobe Acid Fast Stain Pending Received 08/31/17 11:20 Bronchial Brushings Right Lower Lobe Mycobacterial Culture Pending Received 08/31/17 11:20 Bronchial Brushings Right Lower Lobe Bronchial Aspirate Culture - Preliminary NO GROWTH IN 24 HOURS. Resulted 08/31/17 11:20 Bronchial Washings Bronchial Gram Stain - Final Resulted 08/31/17 11:20 Bronchial Washings Bronchial Bronchial Culture - Preliminary NO GROWTH IN 24 HOURS. Resulted 08/30/17 23:29 Urine Random Urine Legionella Antigen - Final PRESUMPTIVE NEGATIVE FOR LEGIONELLA P... Complete 08/30/17 23:29 Urine Random Urine Streptococcus pneumoniae Antigen (M - Final PRESUMPTIVE NEGATIVE FOR STREPTOCOCCU... Complete Imaging Last Impressions Chest X-Ray 08/31/17 0000 Signed Impressions: CONCLUSION: No pneumothorax identified following bronchoscopy. Patchy areas of infiltrate and bilateral effusions. CT Angiography 08/29/17 0000 Signed Impressions: CONCLUSION: 1. Abnormal lung parenchyma suspicious for an early inflammatory process. Pneu mocystis could give this appearance in the appropriate clinical context. Atypic al presentation for asthma. Physical Exam CONSTITUTIONAL/GENERAL: This is an adequately nourished patient, in no apparent distress. TUBES/LINES/DRAINS: SKIN: No jaundice, rashes, Some erytmatous flat lesions on face, UE Skin temperature appropriate. Not diaphoretic. CARDIOVASCULAR: Regular rate and rhythm without murmurs, gallops, or rubs. No JVD. Peripheral pulses symmetric. RESPIRATORY/CHEST: Symmetric, unlabored respirations. R side rhonchi to auscultation. Breath sounds equal bilaterally. No wheezes, rales, or rhonchi. GASTROINTESTINAL: Abdomen soft, non-tender, nondistended. No hepato-splenomegaly , or palpable masses. No guarding. Bowel sounds present. MUSCULOSKELETAL: Extremities without clubbing, cyanosis, or edema. No joint tenderness or effusion noted. No calf tenderness. No mottling or clubbing. NEUROLOGICAL: Awake and alert. Motor and sensory grossly within normal limits. Follows commands. Cognitively sharp. Moves all extremities. PSYCHIATRIC: No obvious anxiety/depression. no apparent hallucinations or other psychotic thought process. Assessment & Plan Remarks Assessment and Plan Immunosuppresed, Common varibel immunoodeficiency PNA, subacute - failed abx - sp bronch - so far neg Pneumocoocal/Leg AGn neg Flu antigen neg Hypoxia Coag neg staph bactermeia, low grade 1/4 - doubt clin siugnificance Rec's: cont vancomycin cont CFTX cont azitjhromycin fu bronch clx PCP sputum dw Dana Hollis MD Sep 01, 2017 15:14
[2017-09-01] MEDS ORDERED: PHARMACY ORDERED LAB ONE (15:45)
--- NOTE | 2017-09-01 19:39 | HHI.PR ---
Subjective Remarks Feels better today. On antibiotics per ID No fever. Sputum is clear . O2 sat 96 on 3 L Objective Vital Signs Date Time Temp Pulse Resp B/P (MAP) Pulse Ox O2 Delivery O2 Flow Rate FiO2 09/01/17 19:21 68 20 89/46 09/01/17 19:20 98.0 83 20 85/42 (56) 95 89/46 (60) 09/01/17 18:11 98 Nasal Cannula 3.00 09/01/17 18:08 98.4 79 18 86/47 (60) 96 09/01/17 18:08 79 18 86/47 09/01/17 17:05 98.1 67 18 96/48 (64) 98 09/01/17 17:00 67 18 96/48 09/01/17 16:49 98.7 80 18 94/44 (61) 98 09/01/17 16:49 80 18 94/44 09/01/17 16:09 78 22 86/47 09/01/17 15:46 98.2 78 22 86/47 (60) 96 09/01/17 12:53 98.2 105 22 94/51 (65) 92 09/01/17 08:00 98.1 71 17 92/49 (63) 95 09/01/17 04:00 97.7 68 16 92/53 (66) 96 09/01/17 00:00 97.7 105 16 91/54 (66) 92 I/O 08/31/17 08/31/17 08/31/17 09/01/17 09/01/17 09/01/17 07:00 15:00 23:00 07:00 15:00 23:00 Intake Total 720 ml 120 ml 360 ml 360 ml Balance 720 ml 120 ml 360 ml 360 ml Intake Oral 720 ml 120 ml 360 ml 360 ml # Voids 2 3 2 # Bowel Movements 0 Result Diagram: 08/31/17 0600 08/31/17 0600 Objective Remarks GENERAL: This is a thinly built young white female who is pale and seems mildly tachypneic. HEENT: Head is normocephalic. Pupils are reactive. Sclerae were clear. Throat was mildly injected. Nasal mucosa edematous. There is some reddish raised rash on the forehead and some rash over the neck as well as both arms and hands. There is no lymphadenopathy observed. CHEST: Reveals equal movements. There are scattered expiratory wheezes bilaterally. HEART: The heart sounds are regular, S1 and S2. No murmur. ABDOMEN: Soft, scaphoid. No mass. No organomegaly or tenderness. EXTREMITIES: No lesions, no edema. NEUROLOGIC: Reflexes are 1+ with no gross motor deficits. Cranial nerves grossly intact. Assessment and Plan Assessment and Plan IMPRESSION: 1. Bilateral pulmonary infiltrates, etiology undetermined, possible atypical pneumonia, rule out Pneumocystis. 2. Common variable immune deficiency disorder. 3. History of seizures. Plan : 1. Cont antibiotics per ID 2. O2 at 3 L and wean 3. Nebs qid , albuterol 4. CXR CBC in am 5. Await Bronch results 6. IVIG Infusion per Heme 7. Cont solumedrol 40 mg Iv Q8H Sue Cuevas MD Sep 01, 2017 19:39
[2017-09-01] MEDS: cefTRIAXone INJ 2,000 MG in SODIUM CHLORIDE 0.9% INJ 100 ML IV SCH (20:55)
[2017-09-01] MEDS ORDERED: VANCOMYCIN INJ 750 MG in SODIUM CHLOR 0.9% 250 ML INJ 250 ML IV SCH (23:00)
[2017-09-02] VITALS (8 sets, daily range): BP systolic 94–105; BP diastolic 52–63; PULSE 63–94; RESP 16–20; TEMP 97.7–98.8; O2SAT 94–96
[2017-09-02] MEDS: DEXTROSE 5% IN WATE 500 ML INJ 500 ML OTHER SCH (00:16)
[2017-09-02] MEDS: methylPREDNISolone SOD SUCC 40 MG/1 ML VIAL IV SCH ×3 (04:00→20:51)
[2017-09-02] MEDS: DOCUSATE SODIUM 50 MG/SENNA 8.6 MG TAB PO SCH ×2 (08:34→20:51)
[2017-09-02] MEDS: AZITHROMYCIN INJ 500 MG in SODIUM CHLOR 0.9% 250 ML INJ 250 ML IV SCH (08:35)
[2017-09-02] MEDS: SODIUM CHLORIDE 0.9% FLUSH 10 ML FLUSH IV FLUSH SCH ×2 (08:35→20:51)
--- NOTE | 2017-09-02 09:05 | PD.ONC.PN ---
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 there Objective Data Date Time Temp Pulse Resp B/P (MAP) Pulse Ox O2 Delivery O2 Flow Rate FiO2 09/02/17 07:00 94 Nasal Cannula 2.00 09/02/17 07:00 63 09/02/17 07:00 98.3 74 20 101/63 (76) 94 09/02/17 04:00 77 09/02/17 04:00 97.7 16 100/58 (72) 96 09/02/17 00:00 98.8 68 18 95 09/02/17 00:00 94/59 (71) 09/02/17 00:00 69 09/01/17 20:11 97.6 89 18 98/57 (71) 95 09/01/17 20:00 97.6 89 18 98/57 (71) 95 09/01/17 20:00 74 09/01/17 20:00 Nasal Cannula 3.00 09/01/17 19:21 68 20 89/46 09/01/17 19:20 98.0 83 20 85/42 (56) 95 89/46 (60) 09/01/17 18:11 98 Nasal Cannula 3.00 09/01/17 18:08 98.4 79 18 86/47 (60) 96 09/01/17 18:08 79 18 86/47 09/01/17 17:05 98.1 67 18 96/48 (64) 98 09/01/17 17:00 67 18 96/48 09/01/17 16:49 98.7 80 18 94/44 (61) 98 09/01/17 16:49 80 18 94/44 09/01/17 16:09 78 22 86/47 09/01/17 15:46 98.2 78 22 86/47 (60) 96 09/01/17 12:53 98.2 105 22 94/51 (65) 92 09/02/17 09/02/17 09/02/17 07:00 15:00 23:00 Intake Total 1100 ml Balance 1100 ml Result Diagram: 08/31/17 0600 08/31/17 0600 Laboratory Results Laboratory Tests Test 09/01/17 22:05 Vancomycin Level Trough 3.1 MCG/ML Culture Results Microbiology Date/Time Source Procedure Growth Status 08/31/17 11:20 Bronchial Washings Bronchial Fungal Smear - Final NO FUNGAL ELEMENTS SEEN. Resulted 08/31/17 11:20 Bronchial Washings Bronchial Fungal Culture Pending Resulted 08/31/17 11:20 Bronchial Brushings Right Lower Lobe Fungal Smear - Final NO FUNGAL ELEMENTS SEEN. Resulted 08/31/17 11:20 Bronchial Brushings Right Lower Lobe Fungal Culture Pending Resulted 08/31/17 11:20 Bronchial Washings Bronchial Acid Fast Stain - Final NO ACID FAST BACILLI SEEN Resulted 08/31/17 11:20 Bronchial Washings Bronchial Mycobacterial Culture Pending Resulted 08/31/17 11:20 Bronchial Brushings Right Lower Lobe Acid Fast Stain - Final NO ACID FAST BACILLI SEEN Resulted 08/31/17 11:20 Bronchial Brushings Right Lower Lobe Mycobacterial Culture Pending Resulted 08/31/17 11:20 Bronchial Brushings Right Lower Lobe Bronchial Aspirate Culture - Preliminary NO GROWTH IN 24 HOURS. Resulted 08/31/17 11:20 Bronchial Washings Bronchial Gram Stain - Final Resulted 08/31/17 11:20 Bronchial Washings Bronchial Bronchial Culture - Preliminary NO GROWTH IN 24 HOURS. Resulted 08/30/17 23:29 Urine Random Urine Legionella Antigen - Final PRESUMPTIVE NEGATIVE FOR LEGIONELLA P... Complete 08/30/17 23:29 Urine Random Urine Streptococcus pneumoniae Antigen (M - Final PRESUMPTIVE NEGATIVE FOR STREPTOCOCCU... Complete Administered Medications Medications (Trade) Dose Ordered Sig/Sean Route PRN Reason Start Time Stop Time Status Last Admin Dose Admin Sodium Chloride (NS Flush) 2 ml BID IV FLUSH 08/30/17 09:00 09/02/17 08:35 Senna/Docusate Sodium (Chel-Colace) 1 tab BID PO 08/30/17 09:00 09/02/17 08:34 Azithromycin 500 mg/Sodium Chloride 250 ml @ 250 mls/hr Q24H IV 08/30/17 10:00 09/02/17 08:35 Ceftriaxone Sodium 2000 mg/ Sodium Chloride 100 ml @ 200 mls/hr Q24H IV 08/30/17 20:00 09/01/17 20:55 Methylprednisolone Sodium Succinate (SoluMEDROL INJ) 40 mg Q8H IV 08/31/17 12:00 09/02/17 04:00 Sodium Chloride 500 ml @ 500 mls/hr Q24H IV 09/01/17 11:00 09/02/17 11:59 09/01/17 13:38 Acetaminophen (Tylenol) 650 mg Q24H PO 09/01/17 11:00 09/02/17 12:59 09/01/17 15:07 Dextrose 500 ml @ 30 mls/hr [id number] OTHER 09/01/17 11:00 09/02/17 20:19 09/01/17 11:00 Diphenhydramine HCl (Benadryl) 25 mg Q24H PO 09/01/17 11:00 09/02/17 12:59 09/01/17 15:08 Immune Globulin 35 gm/Syringe / Bag 350 ml @ 17.07 mls/ hr Q24H IV 09/01/17 13:00 09/02/17 09:31 09/01/17 16:09 Vancomycin HCl 750 mg/Sodium Chloride 257.5 ml @ 250 mls/hr Q12H IV 09/01/17 23:00 09/01/17 21:57 Objective Remarks GENERAL: Young female resting in bed in no obvious distress SKIN: Warm and dry. HEAD: Normocephalic. EYES: No scleral icterus. No injection or drainage. NECK: Supple, trachea midline. CARDIOVASCULAR: Regular rate and rhythm without murmurs. RESPIRATORY: Breathing easy and unlabored on room air. Lungs clear to auscultation GASTROINTESTINAL: Abdomen soft, non-tender, nondistended. EXTREMITIES: No cyanosis, or edema. MUSCULOSKELETAL: Adequate muscle tone. NEUROLOGICAL: No obvious focal deficit. Awake, alert, and oriented x3. PSYCHIATRIC: Appropriate mood and affect; insight and judgment normal. Assessment/Plan Assessment Ms. Bateman is a 26-year-old lady with a history of common variable immunodeficiency. This managed by [facility] with IVIG therapy twice monthly. She is currently hospitalized with pneumonia. Plan Patient admitted with pneumonia with history of variable immunodeficiency. She received IVIG yesterday. Continue antibiotics per infectious disease. Clear for discharge from hematology standpoint and she will follow up with the [facility] in [place] after discharge. Attending Statement The exam, history, and the medical decision-making described in the above note were completed with the assistance of the mid-level provider. I reviewed and agree with the findings presented. I attest that I had a [id number] encounter with the patient on the same day, and personally performed and documented my assessment and findings in the medical record. The patient is doing much better after the current treatment. Her treatment consists of antibiotics and steroids. Her presentation is atypical in that there was no fever or sputum production and she had been previously treated for a pneumonia and got worse after the completion of treatment. Her x-ray of the lung was also atypical with ground glass infiltrates. She has tolerated the IVIG well. One of my concerns is that she is better because of the steroids and not because of the antibiotics. This will become apparent over time. The IVIG that she received should last for 4 weeks. Geri Dasilva Sep 02, 2017 09:05 Kameron Dominguez MD Sep 02, 2017 15:06
[2017-09-02] MEDS: SODIUM CHLORID 0.9% 500 ML INJ 500 ML IV SCH (10:54)
[2017-09-02] MEDS: diphenhydrAMINE HCL 25 MG CAP PO SCH (10:55)
[2017-09-02] MEDS: ACETAMINOPHEN 325 MG TAB PO SCH (10:55)
[2017-09-02] MEDS: VANCOMYCIN 1,000 MG/NS 250 ML IV SCH ×4 (11:00→18:00)
--- NOTE | 2017-09-02 12:21 | HHI.PR ---
Subjective Remarks Patient is lying in bed in NAD. On 2L oxygen. Afebrile. Objective Vital Signs Vital Signs Date Time Temp Pulse Resp B/P (MAP) Pulse Ox O2 Delivery O2 Flow Rate FiO2 09/02/17 07:00 94 Nasal Cannula 2.00 09/02/17 07:00 63 09/02/17 07:00 98.3 74 20 101/63 (76) 94 09/02/17 04:00 77 09/02/17 04:00 97.7 16 100/58 (72) 96 09/02/17 00:00 98.8 68 18 95 09/02/17 00:00 94/59 (71) 09/02/17 00:00 69 09/01/17 20:11 97.6 89 18 98/57 (71) 95 09/01/17 20:00 97.6 89 18 98/57 (71) 95 09/01/17 20:00 74 09/01/17 20:00 Nasal Cannula 3.00 09/01/17 19:21 68 20 89/46 09/01/17 19:20 98.0 83 20 85/42 (56) 95 89/46 (60) 09/01/17 18:11 98 Nasal Cannula 3.00 09/01/17 18:08 98.4 79 18 86/47 (60) 96 09/01/17 18:08 79 18 86/47 09/01/17 17:05 98.1 67 18 96/48 (64) 98 09/01/17 17:00 67 18 96/48 09/01/17 16:49 98.7 80 18 94/44 (61) 98 09/01/17 16:49 80 18 94/44 09/01/17 16:09 78 22 86/47 09/01/17 15:46 98.2 78 22 86/47 (60) 96 09/01/17 12:53 98.2 105 22 94/51 (65) 92 I/O 09/01/17 09/01/17 09/01/17 09/02/17 09/02/17 09/02/17 07:00 15:00 23:00 07:00 15:00 23:00 Intake Total 360 ml 1067.5 ml 1100 ml 250 ml Balance 360 ml 1067.5 ml 1100 ml 250 ml Intake Oral 360 ml 360 ml 1100 ml IV Total 707.5 ml 250 ml # Voids 3 2 6 # Bowel Movements 0 0 Result Diagram: 08/31/17 0600 08/31/17 0600 Other Results Last Impressions Chest X-Ray 08/31/17 0000 Signed Impressions: CONCLUSION: No pneumothorax identified following bronchoscopy. Patchy areas of infiltrate and bilateral effusions. CT Angiography 08/29/17 0000 Signed Impressions: CONCLUSION: 1. Abnormal lung parenchyma suspicious for an early inflammatory process. Pneu mocystis could give this appearance in the appropriate clinical context. Atypic al presentation for asthma. Objective Remarks GENERAL: Patient is 26 yo lying in bed in NAD SKIN: Warm and dry. HEAD: Normocephalic. EYES: No scleral icterus. No injection or drainage. NECK: Supple, trachea midline. No JVD or lymphadenopathy. CARDIOVASCULAR: Regular rate and rhythm without murmurs, gallops, or rubs. RESPIRATORY: Breath sounds equal bilaterally. No accessory muscle use. GASTROINTESTINAL: Abdomen soft, non-tender, nondistended. MUSCULOSKELETAL: No cyanosis, or edema. Neuro: Awake and alert. A/P Assessment and Plan 1)Resp Insuff 2)Ground glass opacities b/l etiology undetermined, possible atypical pneumonia, rule out Pneumocystis. 3) Common variable immune deficiency disorder. 4)History of seizures. Plan : Continue with oxygen keep sats >92% Bronchodilators Continue solumederol 40mg Q8 s/p Bronch with BAL on 08/31- follow up on BAL results Abx per ID( On Rocephin, Zithromax, Vanco) Strep pneumonia, legionella Ag negative Check for Mycoplasma pneumonia IVIG Infusion per Heme Continue treatment plan Shweta Matute MD Sep 02, 2017 12:21
--- NOTE | 2017-09-02 14:01 | HHI.PR ---
Subjective Remarks Bronchial cultures and washings are not yet finalized. Patient continues to do well. She is status post plasmapheresis yesterday. No complaints today. Objective Vital Signs Date Time Temp Pulse Resp B/P (MAP) Pulse Ox O2 Delivery O2 Flow Rate FiO2 09/02/17 12:00 95 Room Air 09/02/17 12:00 98.0 75 20 98/57 (71) 95 09/02/17 11:00 94 09/02/17 07:00 94 Nasal Cannula 2.00 09/02/17 07:00 63 09/02/17 07:00 98.3 74 20 101/63 (76) 94 09/02/17 04:00 77 09/02/17 04:00 97.7 16 100/58 (72) 96 09/02/17 00:00 98.8 68 18 95 09/02/17 00:00 94/59 (71) 09/02/17 00:00 69 09/01/17 20:11 97.6 89 18 98/57 (71) 95 09/01/17 20:00 97.6 89 18 98/57 (71) 95 09/01/17 20:00 74 09/01/17 20:00 Nasal Cannula 3.00 09/01/17 19:21 68 20 89/46 09/01/17 19:20 98.0 83 20 85/42 (56) 95 89/46 (60) 09/01/17 18:11 98 Nasal Cannula 3.00 09/01/17 18:08 98.4 79 18 86/47 (60) 96 09/01/17 18:08 79 18 86/47 09/01/17 17:05 98.1 67 18 96/48 (64) 98 09/01/17 17:00 67 18 96/48 09/01/17 16:49 98.7 80 18 94/44 (61) 98 09/01/17 16:49 80 18 94/44 09/01/17 16:09 78 22 86/47 09/01/17 15:46 98.2 78 22 86/47 (60) 96 I/O 09/01/17 09/01/17 09/01/17 09/02/17 09/02/17 09/02/17 07:00 15:00 23:00 07:00 15:00 23:00 Intake Total 360 ml 1067.5 ml 1100 ml 500 ml Balance 360 ml 1067.5 ml 1100 ml 500 ml Intake Oral 360 ml 360 ml 1100 ml IV Total 707.5 ml 500 ml # Voids 3 2 6 # Bowel Movements 0 0 Result Diagram: 08/31/17 0600 08/31/17 06 Objective Remarks GENERAL: NAD, A&Ox3 HEAD: Normocephalic. NECK: Supple, trachea midline. No lymphadenopathy. EYES: No scleral icterus. No injection or drainage. CARDIOVASCULAR: Regular rate and rhythm without murmurs, gallops, or rubs. RESPIRATORY: Breath sounds equal bilaterally. No accessory muscle use. GASTROINTESTINAL: Abdomen soft, non-tender, nondistended. MUSCULOSKELETAL: No cyanosis, or edema. SKIN: Warm and dry. NEURO: No focal neurological deficitis. 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 secondary to sepsis and pneumonia with respiratory distress Respiratory distress Sepsis Resolved Atypical pneumonia Continue to monitor cultures and studies of bronchial washings Continue vancomycin Continue Rocephin Continue azithromycin Pulmonology following Infectious disease following CVID(Common variable immune deficiency disorder) Patient [facility] Hematology following Patient had plasmapheresis yesterday Nocturnal seizures Continue home Lamictal Seizure precautions DVT prophylaxis SCD Problem Qualifiers (1) Pneumonia, community acquired: Qualified Codes: J18.9 - Pneumonia, unspecified organism Isaac Jimenez MD Sep 02, 2017 14:01
--- NOTE | 2017-09-02 15:53 | HHI.IDPN ---
Subjective Subjective Remarks doing well On RA ambulates w/o SOB afebrile Neg BAL On sterroids Antibiotics azithro CFTX vanco Allergies: Coded Allergies: penicillin G (Unverified Allergy, Unknown, 11/01/16) Objective . Vital Signs Date Time Temp Pulse Resp B/P (MAP) Pulse Ox O2 Delivery O2 Flow Rate FiO2 09/02/17 15:00 73 09/02/17 12:00 95 Room Air 09/02/17 12:00 98.0 75 20 98/57 (71) 95 09/02/17 11:00 94 09/02/17 07:00 94 Nasal Cannula 2.00 09/02/17 07:00 63 09/02/17 07:00 98.3 74 20 101/63 (76) 94 09/02/17 04:00 77 09/02/17 04:00 97.7 16 100/58 (72) 96 09/02/17 00:00 98.8 68 18 95 09/02/17 00:00 94/59 (71) 09/02/17 00:00 69 09/01/17 20:11 97.6 89 18 98/57 (71) 95 09/01/17 20:00 97.6 89 18 98/57 (71) 95 09/01/17 20:00 74 09/01/17 20:00 Nasal Cannula 3.00 09/01/17 19:21 68 20 89/46 09/01/17 19:20 98.0 83 20 85/42 (56) 95 89/46 (60) 09/01/17 18:11 98 Nasal Cannula 3.00 09/01/17 18:08 98.4 79 18 86/47 (60) 96 09/01/17 18:08 79 18 86/47 09/01/17 17:05 98.1 67 18 96/48 (64) 98 09/01/17 17:00 67 18 96/48 09/01/17 16:49 98.7 80 18 94/44 (61) 98 09/01/17 16:49 80 18 94/44 09/01/17 16:09 78 22 86/47 09/02/17 09/02/17 09/03/17 15:00 23:00 07:00 Intake Total 500 ml Balance 500 ml IV Total 500 ml . Microbiology Date/Time Source Procedure Growth Status 08/31/17 11:20 Bronchial Washings Bronchial Fungal Smear - Final NO FUNGAL ELEMENTS SEEN. Resulted 08/31/17 11:20 Bronchial Washings Bronchial Fungal Culture Pending Resulted 08/31/17 11:20 Bronchial Brushings Right Lower Lobe Fungal Smear - Final NO FUNGAL ELEMENTS SEEN. Resulted 08/31/17 11:20 Bronchial Brushings Right Lower Lobe Fungal Culture Pending Resulted 08/31/17 11:20 Bronchial Washings Bronchial Acid Fast Stain - Final NO ACID FAST BACILLI SEEN Resulted 08/31/17 11:20 Bronchial Washings Bronchial Mycobacterial Culture Pending Resulted 08/31/17 11:20 Bronchial Brushings Right Lower Lobe Acid Fast Stain - Final NO ACID FAST BACILLI SEEN Resulted 08/31/17 11:20 Bronchial Brushings Right Lower Lobe Mycobacterial Culture Pending Resulted 08/31/17 11:20 Bronchial Brushings Right Lower Lobe Bronchial Aspirate Culture - Final NO GROWTH IN 48 HOURS. Complete 08/31/17 11:20 Bronchial Washings Bronchial Gram Stain - Final Complete 08/31/17 11:20 Bronchial Washings Bronchial Bronchial Culture - Final NO GROWTH IN 48 HOURS. Complete 08/30/17 23:29 Urine Random Urine Legionella Antigen - Final PRESUMPTIVE NEGATIVE FOR LEGIONELLA P... Complete 08/30/17 23:29 Urine Random Urine Streptococcus pneumoniae Antigen (M - Final PRESUMPTIVE NEGATIVE FOR STREPTOCOCCU... Complete Imaging Last Last Impressions Chest X-Ray 08/31/17 0000 Signed Impressions: CONCLUSION: No pneumothorax identified following bronchoscopy. Patchy areas of infiltrate and bilateral effusions. CT Angiography 08/29/17 0000 Signed Impressions: CONCLUSION: 1. Abnormal lung parenchyma suspicious for an early inflammatory process. Pneu mocystis could give this appearance in the appropriate clinical context. Atypic al presentation for asthma. Physical Exam CONSTITUTIONAL/GENERAL: This is an adequately nourished patient, in no apparent distress. TUBES/LINES/DRAINS: SKIN: No jaundice, rashes, Some erytmatous flat lesions on face, UE Skin temperature appropriate. Not diaphoretic. CARDIOVASCULAR: Regular rate and rhythm without murmurs, gallops, or rubs. No JVD. Peripheral pulses symmetric. RESPIRATORY/CHEST: Symmetric, unlabored respirations. Clear to auscultation. Breath sounds equal bilaterally. No wheezes, rales, or rhonchi. GASTROINTESTINAL: Abdomen soft, non-tender, nondistended. No hepato-splenomegaly , or palpable masses. No guarding. Bowel sounds present. MUSCULOSKELETAL: Extremities without clubbing, cyanosis, or edema. No joint tenderness or effusion noted. No calf tenderness. No mottling or clubbing. NEUROLOGICAL: Awake and alert. Motor and sensory grossly within normal limits. Follows commands. Cognitively sharp. Moves all extremities. PSYCHIATRIC: No obvious anxiety/depression. no apparent hallucinations or other psychotic thought process. Assessment & Plan Remarks Assessment and Plan Immunosuppresed, Common varibel immunoodeficiency: on IVIG PNA, subacute - failed abx - sp bronch - so far neg Pneumocoocal/Leg AGn neg Flu antigen neg Hypoxia: resolved on abx + sterroids Coag neg staph bactermeia, low grade 1/4 - doubt clin siugnificance Rec's: cont vancomycin cont CFTX cont azitjhromycin PCP sputum will repeat CXR in am Dana King MD Sep 02, 2017 15:53
[2017-09-02] MEDS: cefTRIAXone INJ 2,000 MG in SODIUM CHLORIDE 0.9% INJ 100 ML IV SCH (20:51)
[2017-09-03] VITALS (8 sets, daily range): BP systolic 99–111; BP diastolic 48–70; PULSE 56–72; RESP 16–20; TEMP 97.7–98; O2SAT 95–96
[2017-09-03] MEDS: VANCOMYCIN 1,000 MG/NS 250 ML IV SCH ×4 (03:07→12:39)
[2017-09-03] MEDS: methylPREDNISolone SOD SUCC 40 MG/1 ML VIAL IV SCH ×2 (03:07→12:01)
--- NOTE | 2017-09-03 04:52 | RADRPT ---
EXAM DATE: 09/03/2017 4:08 AM EDT AGE/SEX: 26 years / Female INDICATIONS: Shortness of breath, possible pulmonary disease. CLINICAL DATA: This is the patient's subsequent encounter. Patient reports that signs and symptoms h ave been present for 4 - 6 days and indicates a pain score of 0/10. MEDICAL/SURGICAL HISTORY: . Pneumonia None. COMPARISON: [facility] [place] CHEST SINGLE AP, 08/31/2017. . FINDINGS: A single AP view of the chest demonstrates minimal residual left basilar density. Right lung clear. H eart normal in size. The cardiomediastinal contours are unremarkable. Osseous structures are intact . CONCLUSION: Minimal residual left basilar density likely atelectasis. Electronically signed by: Favio Schwartz MD 09/03/2017 4:50 AM EDT
[2017-09-03] MEDS: SODIUM CHLORIDE 0.9% FLUSH 10 ML FLUSH IV FLUSH SCH ×2 (08:06→20:02)
[2017-09-03] MEDS: DOCUSATE SODIUM 50 MG/SENNA 8.6 MG TAB PO SCH ×2 (08:06→19:57)
[2017-09-03] MEDS: AZITHROMYCIN INJ 500 MG in SODIUM CHLOR 0.9% 250 ML INJ 250 ML IV SCH (09:38)
--- NOTE | 2017-09-03 09:56 | HHI.PR ---
Subjective Remarks Patient is lying in bed in NAD. Afebrile, now on room air oxygen. CXR this morning minimal residual left basilar density likely atelectasis Objective Vital Signs Vital Signs Date Time Temp Pulse Resp B/P (MAP) Pulse Ox O2 Delivery O2 Flow Rate FiO2 09/03/17 08:00 97.7 56 20 105/65 (78) 95 09/03/17 07:00 95 Room Air 09/03/17 04:00 97.9 58 16 111/58 (75) 96 09/03/17 00:00 98.0 72 16 100/48 (65) 95 09/02/17 20:00 74 09/02/17 20:00 Room Air 09/02/17 20:00 98.1 78 16 105/56 (72) 95 09/02/17 16:00 98.8 88 20 97/52 (67) 94 09/02/17 15:00 73 09/02/17 12:00 95 Room Air 09/02/17 12:00 98.0 75 20 98/57 (71) 95 09/02/17 11:00 94 I/O 09/02/17 09/02/17 09/02/17 09/03/17 09/03/17 09/03/17 07:00 15:00 23:00 07:00 15:00 23:00 Intake Total 1100 ml 500 ml 1070 ml 1030 ml Output Total 500 ml Balance 1100 ml 500 ml 570 ml 1030 ml Intake Oral 1100 ml 720 ml 780 ml IV Total 500 ml 350 ml 250 ml Output Urine Total 500 ml # Voids 6 3 2 # Bowel Movements 0 0 0 Result Diagram: 08/31/17 0608/31/17 0600 Other Results Last Impressions Chest X-Ray 09/03/17 06 Signed Impressions: CONCLUSION: Minimal residual left basilar density likely atelectasis. CT Angiography 08/29/17 0000 Signed Impressions: CONCLUSION: 1. Abnormal lung parenchyma suspicious for an early inflammatory process. Pneu mocystis could give this appearance in the appropriate clinical context. Atypic al presentation for asthma. Objective Remarks GENERAL: Patient is 26 yo lying in bed in NAD SKIN: Warm and dry. HEAD: Normocephalic. EYES: No scleral icterus. No injection or drainage. NECK: Supple, trachea midline. No JVD or lymphadenopathy. CARDIOVASCULAR: Regular rate and rhythm without murmurs, gallops, or rubs. RESPIRATORY: Breath sounds equal bilaterally. No accessory muscle use. GASTROINTESTINAL: Abdomen soft, non-tender, nondistended. MUSCULOSKELETAL: No cyanosis, or edema. Neuro: Awake and alert. A/P Assessment and Plan 1)Resp Insuff 2)Ground glass opacities b/l-- improving etiology undetermined, possible atypical pneumonia, rule out Pneumocystis. 3) Common variable immune deficiency disorder. 4)History of seizures. Plan : Oxygen PRN keep sats >92% Bronchodilators, IS Decrease solumederol 40mg Q12 s/p Bronch with BAL on 08/31- follow up on BAL results CXR this morning minimal residual left basilar density likely atelectasis Abx per ID( On Rocephin, Zithromax, Vanco) Strep pneumonia, legionella Ag negative Follow up on Mycoplasma pneumonia serology- IgM,IgG IVIG Infusion per Heme Continue treatment plan Shweta Matute MD Sep 03, 2017 09:56
[2017-09-03] MEDS ORDERED: PHARMACY ORDERED LAB ONE (10:45)
--- NOTE | 2017-09-03 12:06 | HHI.PR ---
Subjective Remarks Patient has no new complaints today. Bronchial cultures and washings are not yet finalized. Thus far cultures are showing is negative. Objective Vital Signs Date Time Temp Pulse Resp B/P (MAP) Pulse Ox O2 Delivery O2 Flow Rate FiO2 09/03/17 08:00 97.7 56 20 105/65 (78) 95 09/03/17 07:00 95 Room Air 09/03/17 04:00 97.9 58 16 111/58 (75) 96 09/03/17 00:00 98.0 72 16 100/48 (65) 95 09/02/17 20:00 74 09/02/17 20:00 Room Air 09/02/17 20:00 98.1 78 16 105/56 (72) 95 09/02/17 16:00 98.8 88 20 97/52 (67) 94 09/02/17 15:00 73 I/O 09/02/17 09/02/17 09/02/17 09/03/17 09/03/17 09/03/17 07:00 15:00 23:00 07:00 15:00 23:00 Intake Total 1100 ml 500 ml 1070 ml 1030 ml Output Total 500 ml Balance 1100 ml 500 ml 570 ml 1030 ml Intake Oral 1100 ml 720 ml 780 ml IV Total 500 ml 350 ml 250 ml Output Urine Total 500 ml # Voids 6 3 2 # Bowel Movements 0 0 0 Result Diagram: 08/31/17 0600 08/31/17 0600 Objective Remarks GENERAL: NAD, A&Ox3 HEAD: Normocephalic. NECK: Supple, trachea midline. No lymphadenopathy. EYES: No scleral icterus. No injection or drainage. CARDIOVASCULAR: Regular rate and rhythm without murmurs, gallops, or rubs. RESPIRATORY: Breath sounds equal bilaterally. No accessory muscle use. GASTROINTESTINAL: Abdomen soft, non-tender, nondistended. MUSCULOSKELETAL: No cyanosis, or edema. SKIN: Warm and dry. NEURO: No focal neurological deficitis. 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 Continue to monitor cultures. ID following. Antibiotic selection will be based on culture results. Patient will be stable for discharge once p.o. antibiotic selection is possible and completed. Respiratory distress Sepsis Resolved Atypical pneumonia Continue to monitor cultures and studies of bronchial washings Continue vancomycin Continue Rocephin Continue azithromycin Pulmonology following Infectious disease following CVID(Common variable immune deficiency disorder) Patient followed at [facility] Hematology following Patient had plasmapheresis yesterday Nocturnal seizures Continue home Lamictal Seizure precautions DVT prophylaxis SCD Problem Qualifiers (1) Pneumonia, community acquired: Qualified Codes: J18.9 - Pneumonia, unspecified organism Isaac Jimenez MD Sep 03, 2017 12:06
[2017-09-03] MEDS: cefTRIAXone INJ 2,000 MG in SODIUM CHLORIDE 0.9% INJ 100 ML IV SCH (19:57)
[2017-09-03] MEDS: VANCOMYCIN INJ 1,150 MG in SODIUM CHLOR 0.9% 250 ML INJ 250 ML IV SCH (21:32)
[2017-09-04 00:31] VITALS: BP 115/69; PULSE 64; RESP 16; TEMP 98.4; O2SAT 94
[2017-09-04] MEDS: methylPREDNISolone SOD SUCC 40 MG/1 ML VIAL IV SCH (00:35)
[2017-09-04 05:20] VITALS: BP 106/60; PULSE 87; RESP 15; TEMP 97.5; O2SAT 92
[2017-09-04] MEDS: VANCOMYCIN INJ 1,150 MG in SODIUM CHLOR 0.9% 250 ML INJ 250 ML IV SCH ×2 (05:27→13:00)
[2017-09-04 07:41] VITALS: O2SAT 95
[2017-09-04 08:30] VITALS: BP 102/64; PULSE 106; RESP 16; TEMP 97.9; O2SAT 94
[2017-09-04] MEDS: SODIUM CHLORIDE 0.9% FLUSH 10 ML FLUSH IV FLUSH SCH (08:30)
[2017-09-04] MEDS: AZITHROMYCIN INJ 500 MG in SODIUM CHLOR 0.9% 250 ML INJ 250 ML IV SCH (08:38)
[2017-09-04] MEDS: DOCUSATE SODIUM 50 MG/SENNA 8.6 MG TAB PO SCH (08:50)
[2017-09-04] MEDS ORDERED: predniSONE 20 MG TAB PO SCH (09:00)
[2017-09-04 12:13] VITALS: BP 81/44; PULSE 57; RESP 21; TEMP 98.4; O2SAT 95
--- NOTE | 2017-09-04 12:40 | HHI.PR ---
Subjective Remarks Feels better. On antibiotics per ID. Off O2. CXR is better No fever. Sputum is clear . O2 sat 96 on RA Objective Vital Signs Date Time Temp Pulse Resp B/P (MAP) Pulse Ox O2 Delivery O2 Flow Rate FiO2 09/04/17 12:13 98.4 57 21 81/44 (56) 95 09/04/17 08:30 97.9 106 16 102/64 (77) 94 09/04/17 08:30 Room Air 09/04/17 07:41 95 21 09/04/17 05:20 97.5 87 15 106/60 (75) 92 09/04/17 00:31 98.4 64 16 115/69 (84) 94 09/03/17 20:00 97.7 60 16 110/70 (83) 95 09/03/17 20:00 95 Room Air 09/03/17 19:42 95 21 09/03/17 16:00 97.7 57 20 102/66 (78) 95 09/03/17 13:49 95 21 I/O 09/03/17 09/03/17 09/03/17 09/04/17 09/04/17 09/04/17 07:00 15:00 23:00 07:00 15:00 23:00 Intake Total 1030 ml 500 ml 1180 ml 970 ml Balance 1030 ml 500 ml 1180 ml 970 ml Intake Oral 780 ml 1080 ml 720 ml IV Total 250 ml 500 ml 100 ml 250 ml # Voids 2 2 2 # Bowel Movements 0 0 Result Diagram: 08/31/17 0600 08/31/17 0600 Objective Remarks GENERAL: This is a thinly built young white female who is in no distress. HEENT: Head is normocephalic. Pupils are reactive. Sclerae were clear. Throat was mildly injected. Nasal mucosa edematous. There is some reddish raised rash on the forehead and some rash over both arms and hands. There is no lymphadenopathy observed. CHEST: Reveals equal movements. Clear lungs HEART: The heart sounds are regular, S1 and S2. No murmur. ABDOMEN: Soft, scaphoid. No mass. No organomegaly or tenderness. EXTREMITIES: No lesions, no edema. NEUROLOGIC: Reflexes are 1+ with no gross motor deficits. Cranial nerves grossly intact. Assessment and Plan Assessment and Plan IMPRESSION: 1. Bilateral pulmonary infiltrates, etiology undetermined, possible atypical pneumonia, rule out Pneumocystis. 2. Common variable immune deficiency disorder. 3. History of seizures. Plan : 1. Cont antibiotics per ID 2. D/C O2 3. D/C Nebs 4. PO meds Including Prednisone for 2 weeks 5. Home per Dr Reyes 6. IVIG Infusion per Heme 7. Will F/U as OP in 2 weeks Sue Cuevas MD Sep 04, 2017 12:40
[2017-09-04] MEDS ORDERED: PRED20 PO (13:31)
--- NOTE | 2017-09-04 13:33 | HHI.DS ---
Dr. Pinon Morgan Discharge Summary Admission Date Aug 29, 2017 at 23:10 Discharge Date: Sep 04, 2017 Admitting Diagnosis pneumonia, hypoxic respiratory failure (1) Pneumonia, community acquired ICD Code: J18.9 - Pneumonia, unspecified organism Procedures Bronchoscopy Brief History - From Admission HPI from the admitting physician 26-year-old female with past medical history significant for common variable immune deficiency presents the emergency department for evaluation of persistent shortness of breath. The patient was previously seen [place] [facility] [place] similar [place]. 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 Cuevas, who referred her to the emergency department for evaluation of possible PE. Patient has already completed a course of azithromycin and Levaquin. She continues to complain of shortness of breath that is worse with exertion. She denies any recent wheezing or cough. No fever /chills. No chest pain. No abdominal pain. No nausea/vomiting/diarrhea. CBC/BMP: 08/31/17 0600 08/31/17 0600 Significant Findings Laboratory Tests Test 09/01/17 22:05 09/02/17 13:40 09/03/17 12:32 Vancomycin Level Trough 3.1 MCG/ML (5.0-10.0) Imaging Last Impressions Chest X-Ray 09/03/17 0600 Signed Impressions: CONCLUSION: Minimal residual left basilar density likely atelectasis. CT Angiography 08/29/17 0000 Signed Impressions: CONCLUSION: 1. Abnormal lung parenchyma suspicious for an early inflammatory process. Pneu mocystis could give this appearance in the appropriate clinical context. Atypic al presentation for asthma. PE at Discharge GENERAL: Appears comfortable. SKIN: Warm and dry. CARDIOVASCULAR: Regular rate and rhythm without murmurs, gallops, or rubs. RESPIRATORY: Breath sounds equal bilaterally. No accessory muscle use. GASTROINTESTINAL: Abdomen soft, non-tender, nondistended. MUSCULOSKELETAL: No cyanosis, or edema. BACK: Nontender without obvious deformity. No CVA tenderness. Pt update on day of discharge Patient reports she is feeling great. She is anxious to go home. No difficulty breathing. 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 Patient was treated with broad-spectrum antibiotics including vancomycin, Rocephin, and azithromycin under the guidance of infectious disease. She is discharged on azithromycin and prednisone to complete the course of treatment. She was also followed by pulmonology and underwent bronchoscopy. The bronchial washings so far negative. Her condition significantly improved and she was weaned down to room air. She will follow-up outpatient with pulmonology. CVID(Common variable immune deficiency disorder) Patient followed at [facility] Hematology followed the patient. She underwent plasmapheresis. Nocturnal seizures Continue home Lamictal Pt Condition on Discharge: Good Discharge Disposition: Discharge Home Discharge Time: <= 30 minutes Discharge Instructions DIET: Follow Instructions for: As Tolerated, No Restrictions Activities you can perform: Regular-No Restrictions Follow up Referrals: Pulmonology - 2 Weeks with Sue Cuevas MD New Medications: Azithromycin (Azithromycin) 250 Mg Tab 250 MG PO DAILY for Infection for 5 Days, #5 TAB 0 Refills Prednisone (Prednisone) 20 Mg Tab 20 MG PO BID, #28 TAB Continued Medications: Lamotrigine ER (Lamictal XR) 300 Mg Anne-Marie 300 MG PO HS for Control Seizures, #30 TAB 0 Refills Nebulizer (Nebulizer) 1 Mis Mis EA .XX DIRECTED PRN for WHEEZING, #1 0 Refills [Albuterol-Ipratropium Neb] () 1 AMPULE NEBU 1 AMPULE NEB Q4HR NEB PRN for DYSPNEA for 10 Days, #30 AMPULE [Logesttil (Bcp)] () Discontinued Medications: Fluconazole (Diflucan) 150 Mg Tab 150 MG PO ONCE PRN for yeast infection, #1 TAB 0 Refills Levofloxacin (Levofloxacin) 750 Mg Tablet 750 MG PO DAILY for Infection for 10 Days, #10 TAB 0 Refills Methylprednisolone Dosepak (Medrol Dosepak) 4 Mg Dspk 4 MG PO DIRECTED, #1 DSPK 0 Refills Per Pharmacist direction Elba Morales MD Sep 04, 2017 13:33
--- NOTE | 2017-09-04 14:25 | HHI.DCPOC ---
Discharge Care Plan Diagnosis: (1) Pneumonia, community acquired (2) Acute respiratory failure with hypoxia (3) Immunodeficiency Goals to Promote Your Health * To prevent worsening of your condition and complications * To maintain your health at the optimal level Directions to Meet Your Goals Take your medications as prescribed Follow your dietary instruction Follow activity as directed Keep your appointments as scheduled Take your immunizations and boosters as scheduled If your symptoms worsen call your PCP, if no PCP go to Urgent Care Center or Emergency Room Smoking is Dangerous to Your Health. Avoid second hand smoke Call the 24-hour hour crisis hotline for domestic abuse at Elba Morales MD Sep 04, 2017 14:25
--- NOTE | 2017-09-04 14:37 | HHI.IDPN ---
Subjective Subjective Remarks doing well On RA ambulates w/o SOB afebrile, no cough Neg BAL PCP not done On sterroids c/o burning @ the site during azithro injection no rash, no itching Antibiotics azithro CFTX vanco Allergies: Coded Allergies: penicillin G (Unverified Allergy, Unknown, 11/01/16) Objective . Vital Signs Date Time Temp Pulse Resp B/P (MAP) Pulse Ox O2 Delivery O2 Flow Rate FiO2 09/04/17 12:13 98.4 57 21 81/44 (56) 95 09/04/17 08:30 97.9 106 16 102/64 (77) 94 09/04/17 08:30 Room Air 09/04/17 07:41 95 21 09/04/17 05:20 97.5 87 15 106/60 (75) 92 09/04/17 00:31 98.4 64 16 115/69 (84) 94 09/03/17 20:00 97.7 60 16 110/70 (83) 95 09/03/17 20:00 95 Room Air 09/03/17 19:42 95 21 09/03/17 16:00 97.7 57 20 102/66 (78) 95 Imaging Last Impressions Chest X-Ray 09/03/17 0600 Signed Impressions: CONCLUSION: Minimal residual left basilar density likely atelectasis. CT Angiography 08/29/17 0000 Signed Impressions: CONCLUSION: 1. Abnormal lung parenchyma suspicious for an early inflammatory process. Pneu mocystis could give this appearance in the appropriate clinical context. Atypic al presentation for asthma. Physical Exam CONSTITUTIONAL/GENERAL: This is an adequately nourished patient, in no apparent distress. TUBES/LINES/DRAINS: SKIN: No jaundice, rashes, No skin changes at azithro injection Some erytmatous flat lesions on face, UE Skin temperature appropriate. Not diaphoretic. CARDIOVASCULAR: Regular rate and rhythm without murmurs, gallops, or rubs. No JVD. Peripheral pulses symmetric. RESPIRATORY/CHEST: Symmetric, unlabored respirations. Clear to auscultation. Breath sounds equal bilaterally. No wheezes, rales, or rhonchi. GASTROINTESTINAL: Abdomen soft, non-tender, nondistended. No hepato-splenomegaly , or palpable masses. No guarding. Bowel sounds present. MUSCULOSKELETAL: Extremities without clubbing, cyanosis, or edema. No joint tenderness or effusion noted. No calf tenderness. No mottling or clubbing. NEUROLOGICAL: Awake and alert. Motor and sensory grossly within normal limits. Follows commands. Cognitively sharp. Moves all extremities. PSYCHIATRIC: No obvious anxiety/depression. no apparent hallucinations or other psychotic thought process. Assessment & Plan Remarks Assessment and Plan Immunosuppresed, Common varibel immunoodeficiency: on IVIG PNA, subacute - failed abx - sp bronch - so far neg Pneumocoocal/Leg AGn neg Flu antigen neg Hypoxia: resolved on abx + sterroids Coag neg staph bactermeia, low grade 1/4 - doubt clin siugnificance Local reaction to azithro injectioon in the form of burning, no e/o allergy Rec's: dc vancomycin dc CFTX cont azitjhromycin PO fu PCP cytology dw pathologiost - Dr Chacko they will proceed wityh PCP stains, can be followed by pulmonoogist as o/p OK to dc complete azithromycin dw Dr Faith nazario with Dana Marina MD Sep 04, 2017 14:37
[2017-09-04] MEDS ORDERED: AZIT250T3 PO ×2 (14:50→15:45)
[2017-09-04] MEDS ORDERED: predniSONE 10 MG TAB PO SCH (21:00)
[2017-09-05] MEDS ORDERED: AZITHROMYCIN 250 MG TAB PO SCH (09:00)
[2017-09-05 14:28] LABS: MYCOPLASMA PNEUMONIAE IGG Positive (Negative); MYCOPLASMA PNEUMONIAE IGM Negative (Negative)
[2017-09-06] MEDS ORDERED: PHARMACY ORDERED LAB ONE (04:45)
== END 2017-09-04 18:33 | disposition home or self-care (01) | DRG 871 ==
LOC: NEPD 17:52 → NEDA 23:10 → NEPGCP 08-30 01:39 → N07B 08-31 18:27 → HCIN 09-01 11:38
PROVIDERS: ADMIT Family Medicine; ATTEND Family Medicine
PROC: 0BDF8ZX Extraction of Right Lower Lung Lobe, Via Natural or Artificial Opening Endoscopic, Diagnostic (ICD-10-PCS; principal; 2017-08-31)
PROC: 0B978ZZ Drainage of Left Main Bronchus, Via Natural or Artificial Opening Endoscopic (ICD-10-PCS; 2017-08-31)
PROC: 0BC68ZZ Extirpation of Matter from Right Lower Lobe Bronchus, Via Natural or Artificial Opening Endoscopic (ICD-10-PCS; 2017-08-31)
PROC: 0BC48ZZ Extirpation of Matter from Right Upper Lobe Bronchus, Via Natural or Artificial Opening Endoscopic (ICD-10-PCS; 2017-08-31)
PROC: 0BC58ZZ Extirpation of Matter from Right Middle Lobe Bronchus, Via Natural or Artificial Opening Endoscopic (ICD-10-PCS; 2017-08-31)
PROC: 0B9B8ZZ Drainage of Left Lower Lobe Bronchus, Via Natural or Artificial Opening Endoscopic (ICD-10-PCS; 2017-08-31)
PROC: 0B988ZZ Drainage of Left Upper Lobe Bronchus, Via Natural or Artificial Opening Endoscopic (ICD-10-PCS; 2017-08-31)
PROC: 30233S1 Transfusion of Nonautologous Globulin into Peripheral Vein, Percutaneous Approach (ICD-10-PCS; 2017-09-01)
DX: A41.9 Sepsis, unspecified organism (principal); J18.9 Pneumonia, unspecified organism; D83.9 Common variable immunodeficiency, unspecified; G40.89 Other seizures
CPT/HCPCS: 31623; 71045; 71275; 76937; 80048; 80053; 80202; 80307; 81001; 82784; 83735; 84703; 85025; 85610; 85730; 86403; 86738; 87015; 87040; 87070; 87071; 87077; 87102; 87116; 87186; 87205; 87206; 87449; 88112; 88305; 88312; 88341; 88342; 93005; 94664; J0456; J0696; J1200; J1459; J2250; J2920; J3010; J3370; J7040; J7050; J7060; J7512; J7613; Q9967

== ENCOUNTER 2017-09-21 23:26 | Inpatient (IN) ==
[2017-09-22] MEDS ORDERED: Hydrocortisone Sod Succinate 100 MG Vial IV.PUSH ONE (00:02)
[2017-09-22 00:25] LABS: Baso # (Auto) 0.1 th/mm3 (0.0-0.2); Baso % (Auto) 0.4 % (0.0-2.0); Eos % (Auto) 0.1 % (0.0-4.0); Hematocrit 42.4 % (35.0-46.0); Hemoglobin 13.9 gm/dL (11.6-15.3); Lymph # (Auto) 0.4 th/mm3 (1.0-4.8); Lymph % (Auto) 2.6 % (9.0-44.0); Mean Corpuscular HGB Conc 32.9 % (32.0-36.0); Mean Corpuscular Hemoglobin 27.8 pg (27.0-34.0); Mean Corpuscular Volume 84.4 fL (80.0-100.0); Mean Platelet Volume 8.2 fL (7.0-11.0); Mono # (Auto) 0.3 th/mm3 (0.0-0.9); Mono % (Auto) 2.3 % (0.0-8.0); Neut # (Auto) 13.9 th/mm3 (1.8-7.7); Neut % (Auto) 94.6 % (16.0-70.0); Platelet Count 270 th/mm3 (150-450); Red Blood Count 5.02 mil/mm3 (4.00-5.30); Red Cell Distribution Width 16.6 % (11.6-17.2); White Blood Count 14.7 th/mm3 (4.0-11.0)
--- NOTE | 2017-09-22 00:39 | XR ---
EXAM DATE: 09/22/2017 12:27 AM EDT AGE/SEX: 26 years / Female INDICATIONS: Short of breath. CLINICAL DATA: This is the patient's initial encounter. Patient reports that signs and symptoms have been present for 2 days and indicates a pain score of 0/10. MEDICAL/SURGICAL HISTORY: . 09/03/17 Pneumonia. None. [place] [facility] [place]. . FINDINGS: Hazy parenchymal opacities are seen of both lungs with an upper lobe predominance. No pleural effusio n. No pneumothorax. Heart size stable, within normal limits. CONCLUSION: Bilateral upper lobe predominant pneumonia and/or pneumonitis. Electronically signed by: Manolo Painter MD 09/22/2017 12:38 AM EDT
[2017-09-22 01:11] LABS: Alanine Aminotransferase 17 U/L (10-53); Albumin 3.2 g/dL (3.4-5.0); Anion Gap 13 meq/L (5-15); Aspartate Aminotransferase 30 U/L (15-37); Blood Urea Nitrogen 12 mg/dL (7-18); Calcium 8.7 mg/dL (8.5-10.1); Chloride 105 meq/L (98-107); Glomerular Filtration Rate 87 mL/min (>89); Glucose,Random 146 mg/dL (74-106); Potassium 4.2 meq/L (3.5-5.1); Sodium 138 meq/L (136-145)
[2017-09-22 01:13] LABS: Alkaline Phosphatase 69 U/L (45-117); Total Protein 7.1 g/dL (6.4-8.2)
[2017-09-22] MEDS ORDERED: Sod Chloride 0.9% Inj 1,000 ML IV.SIG ONE (01:27)
[2017-09-22] MEDS ORDERED: Vancomycin Inj 1,000 MG in Sodium Chlor 0.9% Inj 250 ML IV.SIG ONE (01:27)
[2017-09-22] MEDS ORDERED: Vancomycin Consult Pharmacy 1 EACH OTHER SCH (04:00)
--- NOTE | 2017-09-22 04:42 | ED ---
HPI General Chief Complaint: Respiratory Symptoms Stated Complaint: Shortness of Breath/sweating/ Time Seen by Provider: 09/22/17 00:02 History of Present Illness Patient is a 26-year-old female presents to the ER with respiratory complaint and a very hypoxic with an O2 saturation of 74% on arrival. She has primary immune deficiency and has been a frequent visitor to the hospital with pneumonias and usually ends up as an inpatient. She was recently discharged after a short admission for pneumonia. Patient has no other complaint at this time. Related Data Home Medications Medication Instructions Recorded Confirmed lamotrigine 300 mg PO DAILY 09/22/17 09/22/17 Allergies Allergy/AdvReac Type Severity Reaction Status Date / Time amoxicillin Allergy Severe Itching Verified 09/22/17 00:06 penicillin G Allergy Unknown Itching Unverified 09/22/17 00:06 Review of Systems Except as stated in HPI: all other systems reviewed are negative [facility] Medical History Medical History Common variable immunodeficiency (Acute) Social History Social History Substance History: No History of Abuse Second Hand Smoke Exposure: No Smoking Status: Never smoker How Often Do You Have a Drink Containing Alcohol: Monthly or less Recent Travel in [facility] within the Last 8 Weeks: No Recent Out of Country Travel within the Last 8 Weeks: No Immunization History Tetanus Immunization: <5 Years Tetanus Immunization Year if Known: 2017 Hx Influenza Vaccine This Season: Yes Exam Narrative Exam Narrative: GENERAL: 26-year-old female in moderate distress secondary to hypoxia. She is placed on a nonrebreather upon arrival. SKIN: Focused skin assessment warm/dry. HEAD: Atraumatic. Normocephalic. EYES: Pupils equal and round. No scleral icterus. No injection or drainage. ENT: No nasal bleeding or discharge. Mucous membranes pink and moist. NECK: Trachea midline. No JVD. CARDIOVASCULAR: Tachycardia. No murmur appreciated. RESPIRATORY: No accessory muscle use. Clear to auscultation. Breath sounds equal bilaterally. GASTROINTESTINAL: Abdomen soft, non-tender, nondistended. Hepatic and splenic margins not palpable. MUSCULOSKELETAL: No obvious deformities. No clubbing. No cyanosis. No edema. Course Initial Documented Vital Signs Temperature 99.4 F 09/21/17 23:30 Pulse Rate 123 H 09/21/17 23:30 Respiratory Rate 24 09/21/17 23:30 Blood Pressure 93/56 L 09/21/17 23:30 Pulse Oximetry 82 L 09/21/17 23:30 Last Documented Vital Signs Temperature 98.5 F 09/21/17 23:36 Pulse Rate 80 09/22/17 03:31 Respiratory Rate 24 09/22/17 03:31 Blood Pressure 94/53 L 09/22/17 03:31 Pulse Oximetry 95 09/22/17 03:31 Medical Decision Making MDM Narrative Medical decision making narrative: Patient was seen and evaluated in the emergency department. She is placed on a nonrebreather upon arrival which improved her O2 saturation to 96%. She did not require intubation but did however require hospitalization. She was given cefepime and vancomycin while in the emergency department and subsequently admitted to [facility] Lab Data Result diagrams: 09/22/17 00:05 09/22/17 00:20 Lab Results 09/22/17 09/22/17 09/22/17 Range/Units 00:05 00:20 01:45 WBC 14.7 H (4.0-11.0) th/mm3 RBC 5.02 (4.00-5.30) mil/mm3 Hgb 13.9 (11.6-15.3) gm/dL Hct 42.4 (35.0-46.0) % MCV 84.4 (80.0-100.0) fL MCH 27.8 (27.0-34.0) pg MCHC 32.9 (32.0-36.0) % RDW 16.6 (11.6-17.2) % Plt Count 270 (150-450) th/mm3 MPV 8.2 (7.0-11.0) fL Neut % (Auto) 94.6 H (16.0-70.0) % Lymph % (Auto) 2.6 L (9.0-44.0) % [place] % (Auto) 2.3 (0.0-8.0) % Eos % (Auto) 0.1 (0.0-4.0) % Baso % (Auto) 0.4 (0.0-2.0) % Neut # (Auto) 13.9 H (1.8-7.7) th/mm3 Lymph # (Auto) 0.4 L (1.0-4.8) th/mm3 [place] # (Auto) 0.3 (0.0-0.9) th/mm3 Eos # (Auto) 0.0 (0.0-0.4) th/mm3 Baso # (Auto) 0.1 (0.0-0.2) th/mm3 WBC Differential . Differential Comment Auto diff final Sodium 138 (136-145) meq/L Potassium 4.2 (3.5-5.1) meq/L Chloride 105 (98-107) meq/L Carbon Dioxide 20.0 L (21.0-32.0) meq/L Anion Gap 13 (5-15) meq/L BUN 12 (7-18) mg/dL Creatinine 0.80 (0.50-1.00) mg/dL Estimated GFR 87 L (>89) mL/min Random Glucose 146 H (74-106) mg/dL Lactic Acid 1.7 (0.4-2.0) mmol/L Calcium 8.7 (8.5-10.1) mg/dL Total Bilirubin 0.9 (0.2-1.0) mg/dL AST 30 (15-37) U/L ALT 17 (10-53) U/L Alkaline Phosphatase 69 (45-117) U/L Total Protein 7.1 (6.4-8.2) g/dL Albumin 3.2 L (3.4-5.0) g/dL Imaging Data Radiologist's impression: ITS Impressions Chest X-Ray 09/22/17 00:02 CONCLUSION: Bilateral upper lobe predominant pneumonia and/or pneumonitis. Discharge Plan Discharge Disposition Patient Disposition: 30 Still Patient Physicians Team ED Provider: Adelso Toro Primary Care Provider: Morgan Pinon Attending Provider: Satnam De La Fuente Other Providers: Miguel Leong ; Manolo Wood V Rxs /Orders / Referrals /Forms Prescriptions: No Action lamotrigine 300 mg Tablet Extended Release 24hr 300 mg PO DAILY RF: 0 Discharge Interventions Interventions: Vital Signs Last Done: 09/22/17 03:31 Status ED Status: Admitted Patient
[2017-09-22] MEDS ORDERED: Azithromycin Inj 500 MG in Sodium Chlor 0.9% Inj 250 ML IV.SIG SCH (05:00)
[2017-09-22 05:13] LABS: Immunoglobulin A 51 mg/dL (71-391); Immunoglobulin G 661 mg/dL (690-1700)
[2017-09-22] MEDS: MethylPREDNISolone Sod Succinate Inj 40 MG/ML Vial IV.PUSH SCH ×3 (05:30→18:34)
[2017-09-22 05:42] LABS: Immunoglobulin M 12 mg/dL (53-327)
[2017-09-22] MEDS ORDERED: NEED HT OTHER SCH (06:00)
[2017-09-22] MEDS ORDERED: lamoTRIgine 100 MG Tablet PO SCH (09:00)
[2017-09-22] MEDS ORDERED: Vancomycin Inj 1,500 MG in Sodium Chlor 0.9% Inj 500 ML IV.SIG SCH (11:00)
--- NOTE | 2017-09-22 18:34 | MB ---
cc: Sue Cuevas MD DATE: 09/22/2017 CHIEF COMPLAINT: Shortness of breath and hypoxia. HISTORY OF PRESENT ILLNESS: This is a 26-year-old female who was recently treated for bilateral pneumonia and a history for asthma and a past history for combined variable immunodeficiency, who was home after being treated for pneumonia approximately 3 weeks ago. The patient was doing fairly well up until 5 days ago when she started to have increasing dyspnea and she states that she was in [place] and was doing fine, but upon arrival back to [facility], she was in her apartment for one night and then started to have some symptoms of chest tightness, wheezing, cough and congestion and thus came to the emergency room. A chest x-ray showed bilateral upper lobe pulmonary infiltrates. The patient has been coughing, but does not bring up much sputum. She only takes Lamotrigine 300 mg daily for history of seizures. PAST MEDICAL HISTORY: Has included history for common variable immune deficiency for which she is followed by the immunologists at the [facility] and receives IVIG infusions every 3 weeks, the last one being about 3 weeks ago. She has had multiple episodes of pneumonia in the past. She had a bronchoscopy done this past month. The bronchial washings were negative for any bacteria and the cytology was benign. No biopsies were done due to her severe hypoxia. She has had sinusitis in the past: She has had a diffuse skin rash, which was diagnosed to be ____ dermatitis. HABITS: The patient is a nonsmoker. No significant alcohol use. FAMILY HISTORY: Noncontributory. Parents are in good health. ALLERGIES: PENICILLIN. REVIEW OF SYSTEMS: The patient was lost weight. She has sinus disease, postnasal drip, cough with expectoration, epigastric distress and reflux. No nausea, vomiting. She has no urinary symptoms. No leg or calf muscle pains. She has some joint pains of her extremities. She has some anxiety with depression. PHYSICAL EXAMINATION: GENERAL: This is a thinly built young white female who is in no acute distress. VITAL SIGNS: Blood pressure is 100/70, pulse is 116, respirations 24, temperature 99.6. HEENT: Head is normocephalic. Pupils are reactive and equal. Tongue is moist. Throat is injected. Nasal mucosa edematous. NECK: Supple, no bruits or thyroid enlargement, no lymphadenopathy. CHEST: Decreased excursions with wheezes bilaterally, prolonged expirations. No crackles heard. HEART: Sounds are regular, S1 and S2. No murmur. No S3. ABDOMEN: Soft, nontender. No organomegaly. Bowel sounds are active. EXTREMITIES: No lesions, no edema. NEUROLOGIC: Reflexes are 1+ with no gross motor deficits. Cranial nerves are grossly intact. SKIN: The patient has a raised reddish rash over the trunk and limbs and back which blanches on pressure. IMPRESSION: 1. Bilateral pulmonary infiltrates, probable hypersensitivity pneumonia. 2. Reactive airways disease. 3. Common variable immune deficiency disorder. 4. Dermatitis. PLAN: The patient will be continued on antibiotic coverage as ordered and continue with antibiotic coverage as ordered including cefepime 2 grams IV b.i.d. and Zithromax 500 mg IV daily, Solu-Medrol 40 mg IV q.6 hours and we will also get a followup chest x-ray. Oxygen supplementation at 3 liters nasal cannula and wean down to keep sats greater than 92. CBC, electrolytes to be repeated and if she is producing any sputum, this will be sent for culture and Gram stain, as well. She will need an immunology consultation and IVIG infusions continued as previously given and nebulized DuoNeb solution will be added every 6 hours and as needed. Thank you, Dr. De La Fuente, for this consultation. Sue Cuevas MD VJD/MONICA , 05:51 PM , 06:32 PM
--- NOTE | 2017-09-22 20:49 | P.HP ---
History of Present Illness Primary Care Physician: Morgan Pinon MD Chief Complaint: Shortness of breath. History of Present Illness: Ms. Bateman is a very pleasant 26 year old female with a history of CVID who presented to the hospital due to shortness of breath that started one day prior to her admission. She went to her parent's house where she started having shortness of breath. She denies any fever, chills. She was recently hospitalized for pneumonia approximately 3 weeks ago. She follows up with [facility]. 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 She has been dealing with CVID since age 5. Inpatient Certification: I certify that the inpatient services were ordered in accordance with Medicare regulations governing the order. This includes certification that hospital inpatient services are reasonable and necessary and in the case of services not specified as inpatient-only under 42 CFR 419.22(n), that they are appropriately provided as inpatient services in accordance to with the 2-midnight benchmark under 43 CFR 412.3(e) Estimated Total Length of Stay (Days): 2 Plans for Post Hospital Care: Home [facility] - History History Provided By: Patient - Medical History Medical History: Medical History (Last Updated 09/23/17 @ 07:37 by Miguel Leong MD) Common variable immunodeficiency Nocturnal seizures - Tobacco History Second Hand Smoke Exposure: No Tobacco Use In Past 30 Days: No Smoking Status: Never smoker - Alcohol History How Often Do You Have a Drink Containing Alcohol: 2 to 4 times a month - Substance Use History Substance History: No History of Abuse - Travel History Recent Travel in the [place] Within the Last 8 Weeks: Yes Recent Travel Out of the Country Within the Last 8 Weeks: No - Immunization History Tetanus Immunization: <5 Years Tetanus Immunization Year if Known: 2016 Hx Influenza Vaccine This Season: Yes Medications and Allergies Active Medications: Active Medications Albuterol (Duoneb Neb (Sean)) 1 ampul NEB Q6HR NEB SEAN Last Admin: 09/22/17 15:55 Dose: 1 ampul Albuterol (Duoneb Neb (Prn)) 1 ampul NEB Q6HR NEB PRN PRN Reason: WHEEZING Lamotrigine (Lamictal) 300 mg PO HS SEAN Methylprednisolone Sodium Succinate (Solumedrol Inj) 60 mg IV.PUSH Q6H SEAN Last Admin: 09/22/17 18:34 Dose: 60 mg Miscellaneous Information ([facility] Ordered Lab Info) 0 each OTHER ONCE ONE Stop: 09/23/17 22:46 Sodium Chloride (Ns Flush) 2 ml IV.FLUSH BID [facility] Last Admin: 09/22/17 09:50 Dose: 2 ml Sodium Chloride (Ns Flush) 2 ml IV.FLUSH PRN PRN PRN Reason: FLUSH AFTER USING IV ACCESS Allergies Allergy/AdvReac Type Severity Reaction Status Date / Time amoxicillin Allergy Severe Itching Verified 09/22/17 00:06 penicillin G Allergy Unknown Itching Unverified 09/22/17 00:06 Home Medications Medication Instructions Recorded Confirmed Type lamotrigine 300 mg PO DAILY 09/22/17 09/22/17 History Exam Vital signs: Vital Signs 09/21/17 23:30 09/21/17 23:36 09/21/17 23:51 Temperature 99.4 F 98.5 F Pulse Rate 123 H 115 H Respiratory Rate 24 30 H Blood Pressure 93/56 L 97/54 L Pulse Oximetry 82 L 76 L 98 09/22/17 00:30 09/22/17 00:38 09/22/17 00:45 Temperature Pulse Rate 98 H 108 H Respiratory Rate 18 26 H Blood Pressure 91/58 L Pulse Oximetry 96 97 96 09/22/17 01:47 09/22/17 03:31 09/22/17 04:16 Temperature Pulse Rate 90 80 Respiratory Rate 24 24 Blood Pressure 90/53 L 94/53 L Pulse Oximetry 94 L 95 96 09/22/17 05:00 09/22/17 08:00 09/22/17 11:18 Temperature 97.9 F Pulse Rate 89 88 86 Respiratory Rate 22 17 16 Blood Pressure 90/50 L 91/50 L 82/49 L Pulse Oximetry 95 91 L 94 L 09/22/17 15:40 09/22/17 15:59 Temperature 98 F Pulse Rate 78 Respiratory Rate 16 Blood Pressure 93/52 L Pulse Oximetry 93 L 91 L Intake & Output 09/22/17 09/22/17 09/23/17 06:59 18:59 06:59 Intake Total 615 / 615 Balance 615 / 615 Weight 85 kg Intake: IV 615 / 615 Maxipime Inj 2,000 MG In NS Inj 100 / 100 100 ML @ 200 mls/hr IV.SIG Q8H [facility] Rx#:[id number] Vancomycin Inj 1,500 MG In NS 515 / 515 Inj 500 ML @ 250 mls/hr IV.SIG Q12H SEAN Rx#:[id number] Other: Date of Last Bowel Movement 09/21/17 Results - Labs CBC & Chem 7: 09/24/17 12:20 09/23/17 04:01 Labs: Laboratory Results - last 24 hr 09/22/17 09/22/17 09/22/17 00:05 00:20 01:45 WBC 14.7 H RBC 5.02 Hgb 13.9 Hct 42.4 MCV 84.4 MCH 27.8 MCHC 32.9 RDW 16.6 Plt Count 270 MPV 8.2 Neut % (Auto) 94.6 H Lymph % (Auto) 2.6 L [place] % (Auto) 2.3 Eos % (Auto) 0.1 Baso % (Auto) 0.4 Neut # (Auto) 13.9 H Lymph # (Auto) 0.4 L [place] # (Auto) 0.3 Eos # (Auto) 0.0 Baso # (Auto) 0.1 WBC Differential . Differential Comment Auto diff final Sodium 138 Potassium 4.2 Chloride 105 Carbon Dioxide 20.0 L Anion Gap 13 BUN 12 Creatinine 0.80 Estimated GFR 87 L Random Glucose 146 H Lactic Acid 1.7 Calcium 8.7 Total Bilirubin 0.9 AST 30 ALT 17 Alkaline Phosphatase 69 Total Protein 7.1 Albumin 3.2 L IgG IgA IgM 09/22/17 04:40 WBC RBC Hgb Hct MCV MCH MCHC RDW Plt Count MPV Neut % (Auto) Lymph % (Auto) [place] % (Auto) Eos % (Auto) Baso % (Auto) Neut # (Auto) Lymph # (Auto) [place] # (Auto) Eos # (Auto) Baso # (Auto) WBC Differential Differential Comment Sodium Potassium Chloride Carbon Dioxide Anion Gap BUN Creatinine Estimated GFR Random Glucose Lactic Acid Calcium Total Bilirubin AST ALT Alkaline Phosphatase Total Protein Albumin IgG 661 L IgA 51 L IgM 12 L - Imaging Impressions Chest X-Ray 09/22/17 00:02 CONCLUSION: Bilateral upper lobe predominant pneumonia and/or pneumonitis. Caprini VTE Risk Assessment Caprini VTE Risk Assessment: No/Low Risk (score <= 1) Caprini Risk Assessment Model: Point Value = 1 Point Value = 2 Point Value = 3 Point Value = 5 Age 41-60 Minor surgery BMI > 25 kg/m2 Swollen legs Varicose veins or History of unexplained or recurrent spontaneous Oral contraceptives or hormone replacement Sepsis (< 1 month) Serious lung disease, including pneumonia (< 1 month) Abnormal pulmonary function Acute myocardial infarction Congestive heart failure (< 1 month) History of inflammatory bowel disease Medical patient at bed rest Age 61-74 Arthroscopic surgery Major open surgery (> 45 min) Laparoscopic surgery (> 45 min) Malignancy Confined to bed (> 72 hours) Immobilizing plaster cast Central venous access Age >= 75 History of VTE Family history of VTE Factor V Leiden Prothrombin [id number] Lupus anticoagulant Anticardiolipin antibodies Elevated serum homocysteine Heparin-induced thrombocytopenia Other congenital or acquired thrombophilia Stroke (< 1 month) Elective arthroplasty Hip, pelvis, or leg fracture Acute spinal cord injury (< 1 month) Prophylaxis Regimen: Total Risk Factor Score Risk Level Prophylaxis Regimen 0-1 Low Early ambulation 2 Moderate Order ONE of the following: *Sequential Compression Device (SCD) *Heparin 5000 units SQ BID 3-4 Higher Order ONE of the following medications: *Heparin 5000 units SQ TID *Enoxaparin/Lovenox 40 mg SQ daily (WT < 150 kg, CrCl > 30 mL/min) *Enoxaparin/Lovenox 30 mg SQ daily (WT < 150 kg, CrCl > 10-29 mL/min) *Enoxaparin/Lovenox 30 mg SQ BID (WT < 150 kg, CrCl > 30 mL/min) AND/OR *Sequential Compression Device (SCD) 5 or more Highest Order ONE of the following medications: *Heparin 5000 units SQ TID (Preferred with Epidurals) *Enoxaparin/Lovenox 40 mg SQ daily (WT < 150 kg, CrCl > 30 mL/min) *Enoxaparin/Lovenox 30 mg SQ daily (WT < 150 kg, CrCl > 10-29 mL/min) *Enoxaparin/Lovenox 30 mg SQ BID (WT < 150 kg, CrCl > 30 mL/min) AND *Sequential Compression Device (SCD) Assessment and Plan - Plan Ms. Bateman is a very pleasant 26 year old female with a history of CVID who presented to the hospital due to shortness of breath that started one day prior to her admission. She went to her parent's house where she started having shortness of breath. She denies any fever, chills. Probable pulmonary hypersensitivity reaction - Dr. Cuevas evaluated patient. - Will d/c Vanc, Cefepime, Azithromycin - Start Levaquin PO for 7 days. - Currently patient is on Solu-medrol. - I discussed with Dr. Cuevas who recommended PO Prednisone 20mg BID and then slow taper over 2 weeks. - Dr. Cuevas recommends not discharging patient if she remains hypoxic in room air. - Patient plans to follow up at [facility]. Common Variable immune deficiency - Patient has been following at [facility]. Plans to follow up at [place]. - During active infection, we will avoid IVIG. - She plans to continue IVIG treatment after hospitalization. Full code. Ambulation.
[2017-09-23] MEDS: MethylPREDNISolone Sod Succinate Inj 40 MG/ML Vial IV.PUSH SCH (00:17)
[2017-09-23] MEDS: lamoTRIgine 100 MG Tablet PO SCH ×2 (00:18→21:21)
[2017-09-23 04:26] LABS: Baso % (Auto) 0.1 % (0.0-2.0); Hematocrit 37.8 % (35.0-46.0); Hemoglobin 12.3 gm/dL (11.6-15.3); Lymph # (Auto) 0.6 th/mm3 (1.0-4.8); Lymph % (Auto) 2.1 % (9.0-44.0); Mean Corpuscular HGB Conc 32.5 % (32.0-36.0); Mean Corpuscular Hemoglobin 27.4 pg (27.0-34.0); Mean Corpuscular Volume 84.4 fL (80.0-100.0); Mean Platelet Volume 8.4 fL (7.0-11.0); Mono % (Auto) 3.5 % (0.0-8.0); Neut # (Auto) 25.4 th/mm3 (1.8-7.7); Neut % (Auto) 94.3 % (16.0-70.0); Platelet Count 284 th/mm3 (150-450); Red Blood Count 4.48 mil/mm3 (4.00-5.30); Red Cell Distribution Width 15.8 % (11.6-17.2); White Blood Count 26.9 th/mm3 (4.0-11.0)
[2017-09-23 04:38] LABS: Anion Gap 9 meq/L (5-15); Blood Urea Nitrogen 13 mg/dL (7-18); Calcium 8.1 mg/dL (8.5-10.1); Carbon Dioxide 22.5 meq/L (21.0-32.0); Chloride 112 meq/L (98-107); Glomerular Filtration Rate Greater Than 89 mL/min (>89); Glucose,Random 144 mg/dL (74-106); Potassium 4.3 meq/L (3.5-5.1); Sodium 143 meq/L (136-145)
--- NOTE | 2017-09-23 07:41 | P.CON ---
History of Present Illness Service: Hematology Consult date: 09/23/17 Primary Care Provider: Morgan Pinon MD Family Provider: Morgan Pinon MD Chief Complaint: Shortness of breath. History of Present Illness: Reason for consultation: Possible need for immunoglobulin replacement in a patient with common variable immunodeficiency. Outpatient treatment: The patient had been on subcutaneous immunoglobulin injections with Hizentra maintenance once every month. History of presenting illness: Ms. 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 The patient is originally from [place] but she recently relocated to [place]. For management of her CVID she has been under the care of packaging manager at the [facility] in [place] since she was a child. She tells me she had been in the process of transitioning to an adult packaging manager at the [facility]. The patient reports having rarely experienced serious infections requiring hospitalization, she reports the last time she was seriously ill with pneumonia was when she was a preteen (approximately 15 years ago). In mid August 2017 she was hospitalized at this facility for difficulty breathing cough and radiographic evidence of bilateral pulmonary infiltrates. She was assessed to have either hypersensitivity or bilateral pneumonia and was treated with corticosteroids and empiric antibiotic therapy. There was some concern she may have had a hypersensitivity to a mold infestation at her parents house where she was staying. While at [facility] in mid August she was treated with IVIG by my associate Dr. Glaser because the patient was due for immunoglobulins maintenance while she was in this hospital. After her hospitalization last month the patient reports having recovered very well, she moved back to [place] and resumed working. She tells me she had no symptoms up until she returned to visit her parents, she slept 1 night in her old bedroom and woke up the next morning with difficulty breathing and a cough. She presented to [facility] on 09/21/2017 for further workup and management. Chest x-ray revealed findings of bilateral patchy infiltrates. The patient was initiated on empiric antibiotic therapy and corticosteroid infusions as well. She has been evaluated by her oilfield plant and field operator as well. Quantitative immunoglobulins performed in this hospitalization revealed an IgG level of greater than 640. The patient tells me she is due for immunoglobulin maintenance dosing next week. She reports over the past 24 hours her breathing is improved significantly and that she feels as if she is getting very close to being able to go home. Review of Systems Constitutional: Reports fatigue, Reports lack of energy, Denies anorexia, Denies body ache(s), Denies chills, Denies daytime sleepiness, Denies excessive sweating, Denies fever(s), Denies headache(s), Denies increased appetite, Denies malaise, Denies night sweats, Denies weakness, Denies weight gain, Denies weight loss Eyes: Denies blind spots, Denies blurry vision, Denies bulging eyes, Denies change in vision, Denies double vision, Denies discharge, Denies dry eyes, Denies floaters, Denies irritation, Denies itchy eyes, Denies loss of vision, Denies pain, Denies requires corrective lenses, Denies sensitivity to light, Denies other Ears, Nose, Mouth, and Throat: Denies abnormal hearing, Denies bleeding gums, Denies bad breath, Denies change in voice, Denies dental pain, Denies difficulty swallowing, Denies dizziness, Denies dry mouth, Denies ear discharge , Denies ear pain, Denies facial pain, Denies headache(s), Denies hearing loss, Denies hoarseness, Denies lip swelling, Denies nosebleed, Denies mouth lesions, Denies mouth pain, Denies nasal congestion, Denies nasal discharge, Denies nasal obstruction, Denies nasal trauma, Denies neck lump, Denies neck pain, Denies nose pain, Denies pain with swallowing, Denies poor balance, Denies post nasal drip, Denies ringing in the ears, Denies sinus pain, Denies sinus pressure , Denies sore throat, Denies throat swelling, Denies tongue swelling, Denies other Cardiovascular: Reports shortness of breath, Reports shortness of breath with activity, Denies chest pain, Denies chest pain at rest, Denies chest pain with activity, Denies excessive sweating, Denies fainting, Denies fast heart rate, Denies foot swelling, Denies generalized swelling, Denies irregular heart rhythm , Denies leg pain with activity, Denies leg sores, Denies leg swelling, Denies lightheadedness, Denies radiating jaw, neck or arm pain, Denies rapid, pounding , or irregular heartbeat, Denies shortness of breath when lying down, Denies shortness of breath causing sudden awakening, Denies slow heart rate, Denies other Respiratory: Reports chest congestion, Reports cough, Reports excessive phlegm production Gastrointestinal: Denies abdominal pain, Denies belching, Denies black, tarry stools, Denies bloating, Denies bright, red blood in stools, Denies change in bowel habits, Denies constant urge to pass stool, Denies change in stools, Denies coffee ground vomit, Denies constipation, Denies cramping, Denies difficulty swallowing, Denies excessive passing of gas, Denies feeling full early, Denies heartburn, Denies incontinent of stools, Denies loose stools, Denies nausea, Denies pain with swallowing, Denies vomiting, Denies vomiting blood, Denies other Genitourinary: Denies abnormal periods, Denies abnormal vaginal bleeding, Denies absent period, Denies bleeding between periods, Denies blood in urine, Denies difficulty starting urination, Denies difficulty urinating, Denies dribbling after urination, Denies frequent nighttime urination, Denies genital itching, Denies genital lesions, Denies heavy periods, Denies hot flashes, Denies light periods, Denies nipple discharge, Denies painful intercourse, Denies painful periods, Denies painful urination, Denies pelvic pain, Denies prolapse symptoms, Denies sexual problems, Denies side pain, Denies urinary incontinence, Denies urinary urgency, Denies vaginal discharge, Denies vaginal dryness, Denies vaginal odor, Denies vaginal itching, Denies other Musculoskeletal: Denies abnormal walking, Denies back pain, Denies body aches, Denies decreased muscle mass, Denies deformity, Denies joint pain, Denies joint swelling, Denies limited joint movement, Denies loss of height, Denies muscle cramps, Denies muscle weakness, Denies neck pain, Denies numbness, Denies radiating pain into limb, Denies stiffness, Denies tingling, Denies other Skin/Breast: Reports rash, Denies acne, Denies bleeding lesions, Denies boil, Denies breast swelling, Denies breast skin changes, Denies breast pain, Denies breast lump, Denies change in breast shape, Denies change in hair, Denies change in skin color, Denies changing lesions, Denies dry skin, Denies excessive hair growth, Denies hair loss, Denies itching, Denies lesions, Denies nail changes, Denies new lesions, Denies nipple discharge, Denies non-healing lesions, Denies redness, Denies sensitivity to light, Denies skin pain, Denies skin ulcer, Denies sores, Denies stretch hernández, Denies unusual bruising, Denies wounds, Denies yellowing of the skin, Denies other Neurologic: Denies abnormal hearing, Denies abnormal movements, Denies abnormal speech, Denies abnormal walking, Denies behavioral changes, Denies burning sensations, Denies confusion, Denies dizziness, Denies fainting, Denies frequent falls, Denies headache(s), Denies lack of coordination, Denies localized weakness, Denies loss of vision, Denies memory loss, Denies numbness, Denies other visual disturbances, Denies radiating pain, Denies restless legs, Denies convulsions, Denies seizure-like activity, Denies sensory deficit, Denies tingling, Denies tingling/numbness/burning sensations, Denies tremor(s), Denies unsteadiness, Denies weakness, Denies other Psychiatric: Denies abnormal sleep pattern, Denies anxiety, Denies behavioral changes, Denies change in appetite, Denies change in sex drive, Denies confusion , Denies depression, Denies difficulty concentrating, Denies hearing things others do not hear, Denies hopelessness, Denies irritability, Denies lack of enjoyment, Denies memory loss, Denies mood swings, Denies panic attacks, Denies paranoia, Denies seeing things others do not see, Denies sensing things others do not sense, Denies tactile hallucinations, Denies thoughts of hurting/killing others, Denies thoughts of hurting/killing yourself, Denies other Endocrine: Denies cold intolerance, Denies excessive sweating, Denies flushing, Denies heat intolerance, Denies increased hunger, Denies increased thirst, Denies increased urination, Denies rapid, pounding, or irregular heartbeat, Denies other Hematologic/Lymphatic: Denies easy bleeding, Denies easy bruising, Denies enlarged lymph nodes, Denies other Allergic/Immunologic: Denies GI upset with certain foods, Denies hives, Denies itchy eyes, Denies lip swelling, Denies seasonal runny nose, Denies throat swelling, Denies tongue swelling, Denies wheezing, Denies other PMFSH - History History Provided By: Patient - Medical History Medical History: Medical History (Last Updated 09/23/17 @ 07:37 by Miguel Leong MD) Common variable immunodeficiency Nocturnal seizures - Tobacco History Second Hand Smoke Exposure: No Tobacco Use In Past 30 Days: No Smoking Status: Never smoker - Alcohol History How Often Do You Have a Drink Containing Alcohol: 2 to 4 times a month - Substance Use History Substance History: No History of Abuse - Travel History Recent Travel in the [facility] Within the Last 8 Weeks: Yes Recent Travel Out of the Country Within the Last 8 Weeks: No - Immunization History Tetanus Immunization: <5 Years Tetanus Immunization Year if Known: 2016 Hx Influenza Vaccine This Season: Yes Medications and Allergies Active Medications: Active Medications Albuterol (Duoneb Neb (Sean)) 1 ampul NEB Q6HR NEB SEAN Last Admin: 09/23/17 04:31 Dose: 1 ampul Albuterol (Duoneb Neb (Prn)) 1 ampul NEB Q6HR NEB PRN PRN Reason: WHEEZING Lamotrigine (Lamictal) 300 mg PO HS [facility] Last Admin: 09/23/17 00:18 Dose: 300 mg Levofloxacin (Levaquin) 750 mg PO DAILY [facility] Stop: 09/30/17 08:59 Prednisone (Deltasone) 20 mg PO BID SEAN Sodium Chloride (Ns Flush) 2 ml IV.FLUSH BID [facility] Last Admin: 09/23/17 00:18 Dose: 2 ml Sodium Chloride (Ns Flush) 2 ml IV.FLUSH PRN PRN PRN Reason: FLUSH AFTER USING IV ACCESS Allergies Allergy/AdvReac Type Severity Reaction Status Date / Time amoxicillin Allergy Severe Itching Verified 09/22/17 00:06 penicillin G Allergy Unknown Itching Unverified 09/22/17 00:06 Home Medications Medication Instructions Recorded Confirmed Type lamotrigine 300 mg PO DAILY 09/22/17 09/22/17 History Physical Exam Vital signs: Vital Signs 09/22/17 08:00 09/22/17 11:18 09/22/17 15:40 Temperature 97.9 F 98 F Pulse Rate 88 86 78 Respiratory Rate 17 16 16 Blood Pressure 91/50 L 82/49 L 93/52 L Pulse Oximetry 91 L 94 L 93 L 09/22/17 15:59 09/22/17 20:00 09/22/17 21:57 Temperature 97.6 F Pulse Rate 112 H 86 Respiratory Rate 21 22 Blood Pressure 123/59 L Pulse Oximetry 91 L 91 L 09/23/17 00:32 09/23/17 04:00 09/23/17 04:32 Temperature 97.9 F 97.9 F Pulse Rate 89 94 H 81 Respiratory Rate 18 18 16 Blood Pressure 93/51 L 95/54 L Pulse Oximetry 92 L 92 L 09/23/17 04:34 Temperature Pulse Rate Respiratory Rate Blood Pressure Pulse Oximetry 94 L Intake & Output 09/22/17 09/23/17 09/23/17 18:59 06:59 18:59 Intake Total 615 / 615 Balance 615 / 615 Weight 54.7 kg Intake: IV 615 / 615 Maxipime Inj 2,000 MG In NS Inj 100 / 100 100 ML @ 200 mls/hr IV.SIG Q8H SEAN Rx#:[id number] Vancomycin Inj 1,500 MG In NS 515 / 515 Inj 500 ML @ 250 mls/hr IV.SIG Q12H SEAN Rx#:[id number] Other: # Voids 1 Date of Last Bowel Movement 09/21/17 - Constitutional no acute distress - Routine HEENT Exam Head: Present: normocephalic, atraumatic. Absent: abrasion, laceration Eye: Present: EOMI, PERRL ENT: Present: mucous membranes moist - Routine Neck Exam Present: supple, full ROM. Absent: JVD, carotid bruit - Routine Respiratory Exam Present: CTA bilaterally. Absent: accessory muscle use, patient mechanically ventilated, decreased breath sounds, prolonged expiratory phase, rales, respiratory distress, rhonchi, stridor, wheezes, crackles, distant breath sounds , diminished air movement Comments: On oxygen supplementation with nasal cannula. - Routine Cardiovascular Exam Present: RRR, S1, S2. Absent: murmur, gallop, rubs, S3, S4, click - Routine Abdominal Exam Present: soft, normoactive bowel sounds. Absent: tenderness, distended, rebound , guarding, firm - Routine Extremities Exam Absent: cyanosis, clubbing, edema, full ROM, pulses intact - Routine Skin Exam Present: intact. Absent: cyanosis, erythema, dry, pallor - Routine Neurological Exam Present: alert, oriented X3, CN II-XII intact, normal tone. Absent: sensory deficit, motor deficit, normal reflexes, moving all extremities Assessment and Plan - Plan Ms. Bateman is a 26-year-old female with a diagnosis of combined variable immunodeficiency (C VID), she has been on immunoglobulin replacement therapy since she was a child. She presents the hospital with acute onset difficulty breathing associated with a cough. Imaging studies indicate bilateral pulmonary infiltrates consistent with either patchy bilateral pneumonia or pneumonitis. The patient denies having had fevers or chills and after discussion and evaluation by her oilfield plant and field operator there is some suspicion she may have had a hypersensitivity reaction to mold. The patient reports having been on monthly Hizentra subcutaneous immunoglobulin replacement therapy as advised by her immunologists. She is currently under the care of packaging manager at the [facility] in [place]. She presented to the hospital on 09/21/2017 with the above-noted complaints, she has been initiated on empiric antibiotic therapy and corticosteroids as well as oxygen supplementation. She reports feeling much improved since she has been in the hospital. The hematology service was asked to see her to determine if she may benefit from inpatient IVIG dosing. The patient's quantitative immunoglobulin indicate an IgG level of greater than 600 which is acceptable level. Recommendations: 1. Common variable immunodeficiency: Patient at this time does not require immunoglobulin supplementation. She is improving, her quantitative immunoglobulins are at acceptable levels. She will be due for outpatient subcutaneous immunoglobulin replacement/maintenance dosing in the upcoming week. I have advised her to remain on that schedule. Thank you for asking me to see this patient. The hematology service will sign off. Please call for further questions or concerns.
[2017-09-23] MEDS: levoFLOXacin 750 MG Tablet PO SCH (08:38)
[2017-09-23] MEDS: predniSONE 20 MG Tablet PO SCH ×2 (08:38→21:21)
--- NOTE | 2017-09-23 16:00 | P.PNIM ---
Subjective Interval history: Shortness of breath has improved. Still with some minimal dyspnea on exertion when walking around the room off oxygen. Still requiring 3 L O2 today. No fever or chills. No coughing. Physical Exam Vital signs: Vital Signs 09/22/17 15:59 09/22/17 20:00 09/22/17 21:57 Temperature 97.6 F Pulse Rate 112 H 86 Respiratory Rate 21 22 Blood Pressure 123/59 L Pulse Oximetry 91 L 91 L 09/23/17 00:32 09/23/17 04:00 09/23/17 04:32 Temperature 97.9 F 97.9 F Pulse Rate 89 94 H 81 Respiratory Rate 18 18 16 Blood Pressure 93/51 L 95/54 L Pulse Oximetry 92 L 92 L 09/23/17 04:34 09/23/17 08:00 09/23/17 09:31 Temperature 98.2 F Pulse Rate 102 H 86 Respiratory Rate 17 14 Blood Pressure 96/51 L Pulse Oximetry 94 L 93 L 92 L 09/23/17 11:34 Temperature 98.1 F Pulse Rate 87 Respiratory Rate 16 Blood Pressure 101/58 L Pulse Oximetry 95 Intake & Output 09/22/17 09/23/17 09/23/17 18:59 06:59 18:59 Intake Total 615 / 615 Balance 615 / 615 Weight 120 lb 9.486 oz Intake: IV 615 / 615 Maxipime Inj 2,000 MG In NS Inj 100 / 100 100 ML @ 200 mls/hr IV.SIG Q8H ZACH Rx#:[id number] Vancomycin Inj 1,500 MG In NS 515 / 515 Inj 500 ML @ 250 mls/hr IV.SIG Q12H ZACH Rx#:[id number] Other: # Voids 1 Date of Last Bowel Movement 09/21/17 09/22/17 Narrative: GENERAL: Well-developed well-nourished. In no acute distress. SKIN: Warm and dry. No lesions noted. HEENT: Normocephalic. Pupils equal and round. Mucous membranes pink and moist. CARDIOVASCULAR: Regular rate and rhythm. No murmur appreciated. RESPIRATORY: No accessory muscle use. Clear to auscultation. Breath sounds equal bilaterally. GASTROINTESTINAL: Abdomen soft, non-tender, nondistended. Bowel sounds x4. MUSCULOSKELETAL: No obvious deformities. No clubbing or cyanosis. No edema. NEUROLOGICAL: Awake and alert. No focal neurological deficits. Moves upper and lower extremities spontaneously. Normal speech. PSYCHIATRIC: Appropriate mood and affect; insight and judgment normal. Results - Labs CBC & Chem 7: 09/23/17 04:01 09/23/17 04:01 Laboratory Results - last 24 hr 09/23/17 09/23/17 04:01 04:01 WBC 26.9 H RBC 4.48 Hgb 12.3 Hct 37.8 MCV 84.4 MCH 27.4 MCHC 32.5 RDW 15.8 Plt Count 284 MPV 8.4 Neut % (Auto) 94.3 H Lymph % (Auto) 2.[address] [facility] % (Auto) 3.5 Eos % (Auto) 0.0 Baso % (Auto) 0.1 Neut # (Auto) 25.4 H Lymph # (Auto) 0.[address] [facility] # (Auto) 1.0 H Eos # (Auto) 0.0 Baso # (Auto) 0.0 WBC Differential . Differential Comment Auto diff final Sodium 143 Potassium 4.3 Chloride 112 H Carbon Dioxide 22.5 Anion Gap 9 BUN 13 Creatinine 0.54 Estimated GFR Greater than 89 Random Glucose 144 H Calcium 8.1 L Microbiology 09/22/17 00:05 Blood - Peripheral Aerobic Blood Culture - Preliminary No growth in 1 day 09/22/17 00:05 Blood - Peripheral Anaerobic Blood Culture - Preliminary No growth in 1 day 09/22/17 00:05 Blood - Peripheral Aerobic Blood Culture - Preliminary No growth in 1 day 09/22/17 00:05 Blood - Peripheral Anaerobic Blood Culture - Preliminary No growth in 1 day Assessment and Plan - Plan Ms. Bateman is a very pleasant 26 year old female with a history of CVID who presented to the hospital due to shortness of breath that started one day prior to her admission. She went to her parent's house where she started having shortness of breath. She denies any fever, chills, cough. Pneumonia versus pneumonitis: Chest x-ray showed bilateral upper lobe predominant pneumonia and/or pneumonitis. Possible pulmonary hypersensitivity reaction. - Dr. Cuevas with pulmonology evaluated the patient and agreed with steroids and antibiotics. - Reportedly pulmonology recommendation was not to discharge the patient if she remains hypoxic on room air. - Off IV antibiotics and on oral Levaquin with no fevers. - Reportedly pulmonology recommend recommended PO Prednisone 20mg BID and then slow taper over 2 weeks. - Reactive leukocytosis on steroids. Dr. Cuevas recommends not discharging patient if she remains hypoxic in room air. - Continue outpatient follow up at [facility]. Full code. Ambulation. Discharge Planning: Still requiring 3 L O2, await resolution of room air hypoxia prior to DC
[2017-09-23] MEDS ORDERED: Pharmacy Ordered Lab Info OTHER ONE (22:45)
[2017-09-24] MEDS: levoFLOXacin 750 MG Tablet PO SCH (08:58)
[2017-09-24] MEDS: predniSONE 20 MG Tablet PO SCH ×2 (08:58→20:42)
--- NOTE | 2017-09-24 11:25 | P.PNIM ---
Subjective Interval history: Follow-up for pneumonia Shortness of breath about the same, stable, not improving or worsening. Afebrile. Leukocytosis improving. Physical Exam Vital signs: Vital Signs 09/23/17 11:34 09/23/17 16:00 09/23/17 20:00 Temperature 98.1 F 97.7 F 97.5 F L Pulse Rate 87 101 H 93 H Respiratory Rate 16 17 18 Blood Pressure 101/58 L 103/55 L 98/55 L Pulse Oximetry 95 95 93 L 09/23/17 21:25 09/24/17 00:00 09/24/17 03:15 Temperature 98.0 F Pulse Rate 114 H 109 H 92 H Respiratory Rate 20 18 18 Blood Pressure 90/49 L Pulse Oximetry 95 93 L 09/24/17 04:00 09/24/17 08:00 Temperature 98.0 F 98.1 F Pulse Rate 106 H 92 H Respiratory Rate 18 18 Blood Pressure 99/51 L Pulse Oximetry 94 L 95 Intake & Output 09/23/17 09/24/17 09/24/17 18:59 06:59 18:59 Weight 57.1 kg Other: # Voids 2 Date of Last Bowel Movement 09/22/17 09/22/17 Narrative: GENERAL: Nondistressed, on oxygen. CARDIOVASCULAR: Regular rate and rhythm. No murmur appreciated. RESPIRATORY: Decreased bilaterally, crackles on the left base. No wheezing. GASTROINTESTINAL: Abdomen soft, non-tender, nondistended. Bowel sounds x4. MUSCULOSKELETAL: No edema. NEUROLOGICAL: Awake and alert, oriented 3. No focal neurological deficits. Moves upper and lower extremities spontaneously. Normal speech. Results - Labs CBC & Chem 7: 09/24/17 12:20 09/23/17 04:01 Microbiology 09/22/17 00:05 Blood - Peripheral Aerobic Blood Culture - Preliminary No growth in 2 days 09/22/17 00:05 Blood - Peripheral Anaerobic Blood Culture - Preliminary No growth in 2 days 09/22/17 00:05 Blood - Peripheral Aerobic Blood Culture - Preliminary No growth in 2 days 09/22/17 00:05 Blood - Peripheral Anaerobic Blood Culture - Preliminary No growth in 2 days Assessment and Plan - Plan Ms. Bateman is a very pleasant 26 year old female with a history of CVID who presented to the hospital due to shortness of breath that started one day prior to her admission. She went to her parent's house where she started having shortness of breath. She denies any fever, chills, cough. Pneumonia versus pneumonitis: Chest x-ray showed bilateral upper lobe predominant pneumonia and/or pneumonitis. Possible pulmonary hypersensitivity reaction. -Pulmonary following, continue Levaquin orally and prednisone. Leukocytosis improving. Taper prednisone slowly over 2 weeks. - Reactive leukocytosis on steroids. Dr. Cuevas recommends not discharging patient if she remains hypoxic in room air. - Continue outpatient follow up at [facility]. Blood culture negative. Common variable [id number] at [facility], hematology consulted , patient at this time does not require immunoglobulin supplementation, her quantitative immunoglobulins are at acceptable levels. Keep her scheduled for outpatient subcutaneous immunoglobulin replacement/maintenance dosing next week. Full code. Ambulation. Discharge Planning: Saline nasal cannula, weight resolution to room air prior to discharge.
[2017-09-24 12:31] LABS: Hematocrit 38.6 % (35.0-46.0); Hemoglobin 12.4 gm/dL (11.6-15.3); Mean Corpuscular HGB Conc 32.2 % (32.0-36.0); Mean Corpuscular Hemoglobin 27.4 pg (27.0-34.0); Mean Corpuscular Volume 85.3 fL (80.0-100.0); Mean Platelet Volume 7.9 fL (7.0-11.0); Platelet Count 314 th/mm3 (150-450); Red Blood Count 4.52 mil/mm3 (4.00-5.30); Red Cell Distribution Width 16.3 % (11.6-17.2); White Blood Count 15.9 th/mm3 (4.0-11.0)
--- NOTE | 2017-09-24 16:48 | XR ---
EXAM DATE: 09/24/2017 4:27 PM EDT AGE/SEX: 26 years / Female INDICATIONS: Shortness of breath. Evaluate for pneumonia. CLINICAL DATA: This is the patient's initial encounter. Patient reports that signs and symptoms have been present for 2 days and indicates a pain score of 0/10. MEDICAL/SURGICAL HISTORY: None. None. COMPARISON: [facility] [place], CHEST 2V AP&LAT, 09/22/2017. . FINDINGS: Bilateral airspace disease is slightly improved from September 22. Small effusions. Heart size within russel l limits. No pneumothorax. CONCLUSION: Slight improvement in bilateral airspace disease since September 22. Small effusions remain. Electronically signed by: Ran Desai MD 09/24/2017 4:47 PM EDT
[2017-09-24] MEDS: lamoTRIgine 100 MG Tablet PO SCH (20:42)
[2017-09-25] MEDS: levoFLOXacin 750 MG Tablet PO SCH (10:13)
[2017-09-25] MEDS: predniSONE 20 MG Tablet PO SCH ×2 (10:13→23:07)
--- NOTE | 2017-09-25 12:23 | P.PN ---
Subjective Interval history: Has some SOB still and is on o2 2 l. Still on Antibiotics and Prednisone. CXR Physical Exam Vital signs: Vital Signs 09/24/17 14:44 09/24/17 14:58 09/24/17 20:00 Temperature 98.1 F Pulse Rate 120 H 97 H Respiratory Rate 17 18 Blood Pressure 102/50 L Pulse Oximetry 95 Pulse Oximetry [Exertion on Room Air] 78 L Pulse Oximetry [Exertion with Oxygen] 93 L Pulse Oximetry [Resting on Room Air] 90 L 90 L 09/24/17 21:32 09/25/17 00:00 09/25/17 04:00 Temperature 97.6 F 97.7 F Pulse Rate 103 H 80 Respiratory Rate 18 18 18 Blood Pressure 96/58 L 101/59 L Pulse Oximetry 91 L 95 95 Pulse Oximetry [Exertion on Room Air] Pulse Oximetry [Exertion with Oxygen] Pulse Oximetry [Resting on Room Air] 09/25/17 07:37 Temperature Pulse Rate 84 Respiratory Rate 14 Blood Pressure Pulse Oximetry 94 L Pulse Oximetry [Exertion on Room Air] Pulse Oximetry [Exertion with Oxygen] Pulse Oximetry [Resting on Room Air] Intake & Output 09/24/17 09/25/17 09/25/17 18:59 06:59 18:59 Weight 54 kg Other: # Voids 2 Narrative: GENERAL: Non distressed, on oxygen.alert and thinly built. throat clear. CARDIOVASCULAR: Regular rate and rhythm. No murmur appreciated. RESPIRATORY: Decreased bilaterally,Occ wheeze all over. GASTROINTESTINAL: Abdomen soft, non-tender, nondistended. Bowel sounds x4. MUSCULOSKELETAL: No edema. NEUROLOGICAL: Awake and alert, oriented 3. No focal neurological deficits. Moves upper and lower extremities spontaneously. Normal speech and affect. Results - Labs CBC & Chem 7: 09/24/17 12:20 09/23/17 04:01 Laboratory Results - last 24 hr 09/24/17 12:20 WBC 15.9 H RBC 4.52 Hgb 12.4 Hct 38.6 MCV 85.3 MCH 27.4 MCHC 32.2 RDW 16.3 Plt Count 314 MPV 7.9 Microbiology 09/22/17 00:05 Blood - Peripheral Aerobic Blood Culture - Preliminary No growth in 3 days 09/22/17 00:05 Blood - Peripheral Anaerobic Blood Culture - Preliminary No growth in 3 days 09/22/17 00:05 Blood - Peripheral Aerobic Blood Culture - Preliminary No growth in 3 days 09/22/17 00:05 Blood - Peripheral Anaerobic Blood Culture - Preliminary No growth in 3 days - Imaging Impressions Chest X-Ray 09/24/17 00:00 CONCLUSION: Slight improvement in bilateral airspace disease since September 22. Small effusions remain. 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 Continue IV solumedrol 40 mg BID 2. Continue antibiotics . 3. O2 2 L N/C . 4. Symbicort 160/4.5 mcg , 2 puffs BID 5. Up in room. 6. Chest XRay this week.
--- NOTE | 2017-09-25 13:12 | P.PNIM ---
Subjective Interval history: Chest x-ray shows interval improvement. Patient is still reporting respiratory distress especially when she ambulates without oxygen. No other complaints. She is not yet stable for discharge home. Physical Exam Vital signs: Vital Signs 09/24/17 14:44 09/24/17 14:58 09/24/17 20:00 Temperature 98.1 F Pulse Rate 120 H 97 H Respiratory Rate 17 18 Blood Pressure 102/50 L Pulse Oximetry 95 Pulse Oximetry [Exertion on Room Air] 78 L Pulse Oximetry [Exertion with Oxygen] 93 L Pulse Oximetry [Resting on Room Air] 90 L 90 L 09/24/17 21:32 09/25/17 00:00 09/25/17 04:00 Temperature 97.6 F 97.7 F Pulse Rate 103 H 80 Respiratory Rate 18 18 18 Blood Pressure 96/58 L 101/59 L Pulse Oximetry 91 L 95 95 Pulse Oximetry [Exertion on Room Air] Pulse Oximetry [Exertion with Oxygen] Pulse Oximetry [Resting on Room Air] 09/25/17 07:37 Temperature Pulse Rate 84 Respiratory Rate 14 Blood Pressure Pulse Oximetry 94 L Pulse Oximetry [Exertion on Room Air] Pulse Oximetry [Exertion with Oxygen] Pulse Oximetry [Resting on Room Air] Intake & Output 09/24/17 09/25/17 09/25/17 18:59 06:59 18:59 Weight 54 kg Other: # Voids 2 Narrative: GENERAL: NAD, A&Ox3 HEAD: Normocephalic. NECK: Supple, trachea midline. No lymphadenopathy. EYES: No scleral icterus. No injection or drainage. CARDIOVASCULAR: Regular rate and rhythm without murmurs, gallops, or rubs. RESPIRATORY: Breath sounds equal bilaterally. No accessory muscle use. Bilateral crackles at bases greater at the left lower lung. GASTROINTESTINAL: Abdomen soft, non-tender, nondistended. MUSCULOSKELETAL: No cyanosis, or edema. SKIN: Warm and dry. NEURO: No focal neurological deficits. Results - Labs CBC & Chem 7: 09/24/17 12:20 09/23/17 04:01 Microbiology 09/22/17 00:05 Blood - Peripheral Aerobic Blood Culture - Preliminary No growth in 3 days 09/22/17 00:05 Blood - Peripheral Anaerobic Blood Culture - Preliminary No growth in 3 days 09/22/17 00:05 Blood - Peripheral Aerobic Blood Culture - Preliminary No growth in 3 days 09/22/17 00:05 Blood - Peripheral Anaerobic Blood Culture - Preliminary No growth in 3 days - Imaging Impressions Chest X-Ray 09/24/17 00:00 CONCLUSION: Slight improvement in bilateral airspace disease since September 22. Small effusions remain. Assessment and Plan - Plan 26-year-old female admitted secondary to pneumonia with a history of CVID Community-acquired pneumonia Immunodeficiency Continue p.o. Levaquin Continue p.o. azithromycin Continue prednisone Monitor for improvement Continue oxygen supplementation and wean as tolerated Common variable immune deficiency Increased risk for settings of infection Treat as above Monitor for improvement in symptoms Continue to monitor as an outpatient at [facility] DVT prophylaxis SCDs
[2017-09-25] MEDS ORDERED: Azithromycin 250 MG Tablet PO ONE (15:00)
[2017-09-25] MEDS: Lactobacillus Acidophilus/L. Spores Tablet PO SCH (17:34)
[2017-09-25] MEDS: lamoTRIgine 100 MG Tablet PO SCH (23:12)
[2017-09-26] MEDS: Lactobacillus Acidophilus/L. Spores Tablet PO SCH ×2 (08:10→18:14)
[2017-09-26] MEDS: levoFLOXacin 750 MG Tablet PO SCH (08:10)
[2017-09-26] MEDS: predniSONE 20 MG Tablet PO SCH (08:11)
[2017-09-26] MEDS ORDERED: Azithromycin 250 MG Tablet PO SCH (09:00)
[2017-09-26] MEDS ORDERED: MethylPREDNISolone Sod Succinate Inj 40 MG/ML Vial IV.PUSH SCH (14:00)
--- NOTE | 2017-09-26 14:55 | P.PNIM ---
Subjective Interval history: Mrs. Bateman is a 26-year-old female. She was admitted with pneumonia in the presence of common variable immunodeficiency syndrome. She was treated with Levaquin and azithromycin was added later. She is also treated with steroids and needed oxygen. Through time she has had gradual improvement of her symptoms. Today she is able to be weaned off oxygen. Today when I saw this patient she is comfortable sitting with room air and able to ambulate without shortness of breath. She is medically stable and cleared for discharge home today on further treatments of antibiotics and a steroid taper. Physical Exam Vital signs: Vital Signs 09/25/17 16:27 09/25/17 20:00 09/26/17 00:00 Temperature 98 F 99.3 F 98.6 F Pulse Rate 93 H 95 H 91 H Respiratory Rate 16 20 16 Blood Pressure 101/62 108/59 L 119/57 L Pulse Oximetry 97 93 L 95 Pulse Oximetry [Exertion on Room Air] Pulse Oximetry [Exertion with Oxygen] Pulse Oximetry [Resting on Room Air] Pulse Oximetry [Resting with Oxygen] 09/26/17 04:00 09/26/17 07:21 09/26/17 08:00 Temperature 98.0 F 98.4 F Pulse Rate 87 75 102 H Respiratory Rate 18 16 18 Blood Pressure 107/55 L 101/53 L Pulse Oximetry 95 98 94 L Pulse Oximetry [Exertion on Room Air] Pulse Oximetry [Exertion with Oxygen] Pulse Oximetry [Resting on Room Air] Pulse Oximetry [Resting with Oxygen] 09/26/17 09:55 09/26/17 11:24 09/26/17 12:00 Temperature 98.0 F Pulse Rate 93 H 120 H Respiratory Rate 16 18 Blood Pressure 96/52 L Pulse Oximetry 95 Pulse Oximetry [Exertion on Room Air] 88 L Pulse Oximetry [Exertion with Oxygen] 92 L Pulse Oximetry [Resting on Room Air] 90 L Pulse Oximetry [Resting with Oxygen] 94 L Intake & Output 09/25/17 09/26/17 09/26/17 18:59 06:59 18:59 Intake Total 360 / 360 Balance 360 / 360 Weight 55 kg Intake: Oral 360 / 360 Other: # Voids 1 Date of Last Bowel Movement 09/22/17 Results - Labs CBC & Chem 7: 09/24/17 12:20 09/23/17 04:01 Microbiology 09/22/17 00:05 Blood - Peripheral Aerobic Blood Culture - Preliminary No growth in 4 days 09/22/17 00:05 Blood - Peripheral Anaerobic Blood Culture - Preliminary No growth in 4 days 09/22/17 00:05 Blood - Peripheral Aerobic Blood Culture - Preliminary No growth in 4 days 09/22/17 00:05 Blood - Peripheral Anaerobic Blood Culture - Preliminary No growth in 4 days Assessment and Plan - Plan 26-year-old female admitted secondary to pneumonia with a history of CVID Community-acquired pneumonia Immunodeficiency Continue p.o. Levaquin Continue p.o. azithromycin Continue prednisone Monitor for improvement Continue oxygen supplementation and wean as tolerated Common variable immune deficiency Increased risk for settings of infection Treat as above Monitor for improvement in symptoms Continue to monitor as an outpatient at [facility] DVT prophylaxis SCDs
--- NOTE | 2017-09-26 19:01 | P.PN ---
Subjective Interval history: Has some cough and SOB. On PO Meds but not improving enough and on O2 at 2 L No fever. Physical Exam Vital signs: Vital Signs 09/25/17 20:00 09/26/17 00:00 09/26/17 04:00 Temperature 99.3 F 98.6 F 98.0 F Pulse Rate 95 H 91 H 87 Respiratory Rate 20 16 18 Blood Pressure 108/59 L 119/57 L 107/55 L Pulse Oximetry 93 L 95 95 Pulse Oximetry [Exertion on Room Air] Pulse Oximetry [Exertion with Oxygen] Pulse Oximetry [Resting on Room Air] Pulse Oximetry [Resting with Oxygen] 09/26/17 07:21 09/26/17 08:00 09/26/17 09:55 Temperature 98.4 F Pulse Rate 75 102 H Respiratory Rate 16 18 Blood Pressure 101/53 L Pulse Oximetry 98 94 L Pulse Oximetry [Exertion on Room Air] 88 L Pulse Oximetry [Exertion with Oxygen] 92 L Pulse Oximetry [Resting on Room Air] 90 L Pulse Oximetry [Resting with Oxygen] 94 L 09/26/17 11:24 09/26/17 12:00 Temperature 98.0 F Pulse Rate 93 H 120 H Respiratory Rate 16 18 Blood Pressure 96/52 L Pulse Oximetry 95 Pulse Oximetry [Exertion on Room Air] Pulse Oximetry [Exertion with Oxygen] Pulse Oximetry [Resting on Room Air] Pulse Oximetry [Resting with Oxygen] Intake & Output 09/25/17 09/26/17 09/26/17 18:59 06:59 18:59 Intake Total 360 / 360 Balance 360 / 360 Weight 55 kg Intake: Oral 360 / 360 Other: # Voids 1 Date of Last Bowel Movement 09/22/17 Narrative: GENERAL: NAD, A&Ox3 HEAD: Normocephalic. NECK: Supple, trachea midline. No lymphadenopathy. EYES: No scleral icterus. No injection or drainage. CARDIOVASCULAR: Regular rate and rhythm without murmurs, gallops, or rubs. RESPIRATORY: Breath sounds equal bilaterally. No accessory muscle use. occ crackles at bases greater at the left lower lung. GASTROINTESTINAL: Abdomen soft, non-tender, nondistended. MUSCULOSKELETAL: No cyanosis, or edema. SKIN: Warm and dry. NEURO: No focal neurological deficits. Results - Labs CBC & Chem 7: 09/24/17 12:20 09/23/17 04:01 Microbiology 09/22/17 00:05 Blood - Peripheral Aerobic Blood Culture - Preliminary No growth in 4 days 09/22/17 00:05 Blood - Peripheral Anaerobic Blood Culture - Preliminary No growth in 4 days 09/22/17 00:05 Blood - Peripheral Aerobic Blood Culture - Preliminary No growth in 4 days 09/22/17 00:05 Blood - Peripheral Anaerobic Blood Culture - Preliminary No growth in 4 days Assessment and Plan - Assessment (1) Asthma Code(s): J45.909 - Unspecified asthma, uncomplicated Status: Acute (2) Lung infiltrate on CT Code(s): R91.8 - Other nonspecific abnormal finding of lung field Status: Acute (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 Continue IV solumedrol 40 mg q8h 2. O2 at 2 L PRN. 3. Cont Duonebs qid prn. 4. Symbicort 160/4.5 mcg, 2puffs bid 5. Cont antibiotics . 6. Cheat XRay CBC in am
--- NOTE | 2017-10-09 19:31 | P.DS ---
Date of admission: 09/22/17 04:03 Primary care physician: Morgan Pinon MD Brief History from admission: Ms. Bateman is a very pleasant 26 year old female with a history of CVID who presented to the hospital due to shortness of breath that started one day prior to her admission. She went to her parent's house where she started having shortness of breath. She denies any fever, chills. She was recently hospitalized for pneumonia approximately 3 weeks ago. She follows up with [facility]. 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 She has been dealing with CVID since age 5. DS: Medications - Discharge Medications Prescriptions: albuterol sulfate [Ventolin HFA] 2 puff INHALATION Q4H PRN #1 unit PRN Reason: Shortness Of Breath azithromycin 500 mg PO DAILY #7 tab Lactobacillus acidophilus 500 mmu cells PO TID #30 cap levofloxacin 750 mg PO DAILY #7 tab prednisone 1 dose PO PER PKG DIR #1 ea DS: Summary Hospital Course: Mrs. Bateman is a 26-year-old female. She was admitted with pneumonia in the presence of common variable immunodeficiency syndrome. She was treated with Levaquin and azithromycin was added later. She is also treated with steroids and needed oxygen. Through time she has had gradual improvement of her symptoms. Today she is able to be weaned off oxygen. Today when I saw this patient she is comfortable sitting with room air and able to ambulate without shortness of breath. She is medically stable and cleared for discharge home today on further treatments of antibiotics and a steroid taper. She was discharged on 09/26/17. - Time Spent with Patient Total time spent providing and/or coordinating discharge services: - Quality: VTE Deep Vein Thrombosis/Pulmonary Embolism Present on Admission: No Results Procedures completed during hospitalization: None - Impressions ITS Impressions Chest X-Ray 09/24/17 00:00 CONCLUSION: Slight improvement in bilateral airspace disease since September 22. Small effusions remain. Discharge Plan - Discharge Disposition Patient Disposition: Discharge Home - Discharge Condition Condition: Stable - Discharge Order Discharge Orders: Discharge Order (Routine); Ordered 09/26/17 Ordered By: Isaac Jimenez - Discharge Details Anticipated Discharge Date: 09/26/17 - Physicians Team Primary Care Provider: Morgan Pinon Attending Provider: Isaac Jimenez Other Providers: Manolo Wood MD ; Miguel Leong MD
== END 2017-09-26 20:05 | disposition home or self-care (01) ==
LOC: NEPC 23:26 → NEDA 09-22 04:03 → N05 09-22 08:14
PROVIDERS: ADMIT Hospitalist; ATTEND Hospitalist